=== PATIENT | male | born 1950 | race Caucasian/White ===

== ENCOUNTER 2024-08-12 15:23 | Outpatient (AMB) | payer MEDICARE, SELFPAY ==
--- NOTE | 2024-08-12 15:26 | A.OFFVIS_ITS ---
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 His is at bedside. He originally was admitted at [facility] from [address] [place] [address] due to an acute stroke. He had developed altered mental status and aphasia and was brought in by his . CT at that demonstrated acute left thalamic stroke with hemorrhagic extension. Subsequent CT angio of the carotids demonstrated a left-sided occlusion and high-grade right carotid stenosis. He was discharged to a rehab facility with some mild deficits of the right arm and blurry vision. He reports he is doing fairly well and now presents to us for vascular evaluation. Of note he is being maintained on aspirin and statin. [facility] Social History (Updated 08/12/24 @ 15:31 by CARMELO Hupmhrey) Patient Tobacco Use Status: Never used Tobacco Review of Systems Const All systems reviewed & are unremarkable except as noted in HPI and below Reports no additional complaints ENT Reports Normal hearing present Card Denies chest pain, Denies chest pain at rest, Denies chest pain with activity and Denies pedal edema Resp Denies cough GI Denies abdominal pain Musc Denies abnormal gait, Denies muscle cramps and Denies radiating pain into limb Skin/Breast Denies skin ulcer and Denies wounds Neuro Reports Normal hearing present and Denies abnormal gait Psych Reports no additional complaints Physical Exam Vital Signs: BMI result Body Mass Index 29.9 Const General: cooperative, healthy appearing and comfortable Orientation/consciousness: oriented to person, oriented to place and oriented to time HEENT Head: Yes normal to inspection Eyes Other: Double vision Neck Neck: Yes normal visual inspection Carotids: no bruits Chest Chest palpation & inspection: normal inspection of the chest Resp Effort & Inspection: normal respiratory effort and able to speak in complete sentences Auscultation: clear to auscultation bilaterally, no crackles, no rales, no rhonchi and no wheezes Cardio Rate: regular rate Rhythm: regular rhythm Heart sounds: S1 normal heart sound present and S2 normal heart sound present Bruits: no carotid bruits Peripheral pulses: Peripheral pulses 2+ throughout GI Inspection: Yes normal to inspection Skin Wounds: no wounds Hair: normal Neuro General: oriented to person, oriented to place and oriented to time Cranial nerves: Yes CN's II-XII intact bilaterally and Yes Normal hearing present Cognition (Neuro): normal cognition Motor exam (neuro): 5/5 motor strength present throughout Extrem Other: venous exam: No significant superficial varicosities or spider telangiectasias, minimal edema General: No clubbing, No cyanosis and No edema Psych Appearance: grossly normal Mental Status: mental status grossly normal Speech and movement: Normal speech and movement present Results Reviewed Results Reviewed: CT angio of the carotids demonstrates left-sided occlusion right side 75% stenosis. Assessment & Plan Assessment & Plan (1) Bilateral carotid artery stenosis: Code(s): I65.23 - Occlusion and stenosis of bilateral carotid arteries Category: Medical Plan: In short patient has a left carotid occlusion and high-grade right carotid stenosis. He will require right carotid endarterectomy. I have taken the liberty of ordering a repeat carotid ultrasound to get a baseline. In the interim as he recovers I have taken the liberty of also ordering cardiology evaluation for risk stratification. He will follow up with us after repeat ultrasound testing. Thank you for allowing us to assist in his care. If there are any questions or concerns please do not hesitate to contact us. Orders: Orders US carotid duplex BI 2 Weeks I65.23 - Occlusion and stenosis of bilateral carotid arteries Coding Level of Care Code New Pt Level 4 (03312) Complex EM visit Add On G2211 Diagnoses Bilateral carotid artery stenosis I65.23
[2024-08-12 15:27] VITALS: BMI 29.9
--- OUTSIDE RECORDS SUMMARY | 2024-08-12 18:36 | XMS_ITS | Clinical Summary ---
Author Organization [address] [facility] Address [address] [place] [address] Phone Care Team Providers Care Manager Of Financial Reporting Name Role Phone DollykieshaestefaniAkira byrd Primary Care Provider [phone] Encounters Date Type Department Care Team Description 08/05/2024 10:18 AM EDT - 08/05/2024 11:59 PM EDT Hospital Encounter [facility] CT Scan [address] [place] [phone] Epigastric discomfort Discharge Disposition: Home or Self Care 07/11/2024 Lab Requisition [facility] [address] [place] [phone] Jamarcus Bruno MD Encounter for other general examination 07/10/2024 Lab Requisition [facility] [address] [place] [phone] Jamarcus Bruno MD Encounter for other general examination 07/07/2024 Lab Requisition [facility] [address] [place] [phone] Jamarcus Bruno MD Encounter for other general examination 07/04/2024 Lab Requisition [facility] [address] [place] [phone] Jamarcus Bruno MD Encounter for other general examination 07/03/2024 Lab Requisition [facility] [address] [place] [phone] Jamarcus Bruno MD Encounter for other general examination 07/01/2024 Lab Requisition [facility] [address] [place] [phone] Jamarcus Bruno MD Encounter for other general examination 06/30/2024 Lab Requisition [facility] [address] [place] [phone] Jamarcus Bruno MD Encounter for other general examination from Last 3 Months Social History Tobacco Use Types Packs/Day Years Used Date Smoking Tobacco: Never Assessed Sex and Gender Information Value Date Recorded Sex Assigned at Not on file Legal Sex Male 11:27 PM EST Gender Identity Not on file Sexual Orientation Not on file Plan of Treatment Health Maintenance Due Date Last Done Comments Pneumococcal Vaccine: 50+ Years (1 of 1 - PCV) 2002 Zoster Vaccines (1 of 2) 2002 DTaP,Tdap,and Td Vaccines (2 - Td or Tdap) 02/15/2017 02/15/2007 Abdominal Aortic Aneurysm (AAA) Screen 01/22/2022 Colorectal Cancer Screening: Colonoscopy 01/22/2022 Depression Screening 01/22/2022 Falls Risk Assessment 01/22/2022 Hepatitis C Screening 01/22/2022 Medicare Annual Wellness Visit 01/22/2022 Social Influencers of Health Screening 01/22/2022 COVID-19 Vaccine ( season) 2023 02/13/2022, 12/30/2020, 05/24/2020, Additional history exists Hypertension/CHF/CAD Annual BMP Blood Test 08/01/2025 08/01/2024, 07/24/2024, 07/17/2024, Additional history exists RSV Immunization Adult Patients (1 - 1-dose 75+ series) 12/13/2027 Cholesterol Screening (Lipid Panel) 07/17/2029 07/17/2024, 02/06/2024 Influenza Vaccine Completed 10/25/2023, , 10/20/2021, Additional history exists HIB Vaccines Aged Out No longer eligi ble based on patient's age to complete this topic HPV Vaccines Aged Out No longer eligi ble based on patient's age to complete this topic Hepatitis A Vaccines Aged Out No long er eligible based on patient's age to complete this topic Hepatitis B Vaccines Aged Out No long er eligible based on patient's age to complete this topic IPV Vaccines Aged Out No longer eligi ble based on patient's age to complete this topic MMR Vaccines Aged Out No longer eligi ble based on patient's age to complete this topic Meningococcal ACWY Vaccine Aged Out N o longer eligible based on patient's age to complete this topic Meningococcal B Vaccine Aged Out No l onger eligible based on patient's age to complete this topic RSV Immunization Patients Under 20 months Aged Out No longer eligible based on patient's age to complete this topic Varicella Vaccines Aged Out No longer eligible based on patient's age to complete this topic Procedures Procedure Name Priority Date/Time Associated Diagnosis Comments CT ABDOMEN PELVIS W CONTRAST STAT 08/05/2024 10:40 AM EDT Epigastric discomfort BILIRUBIN DUPLICATE PROCEDURE TO ORDER Routine 08/01/2024 10:13 AM EDT Abdominal pain GERD (gastroesophageal reflux disease) CVA (cerebral vascular accident) (CMS/HCC V24, CMS/HCC V28) CBC WITH AUTO DIFFERENTIAL Routine 08/01/2024 10:13 AM EDT Abdominal pain GERD (gastroesophageal reflux disease) CVA (cerebral vascular accident) (CMS/HCC V24, CMS/HCC V28) AMYLASE Routine 08/01/2024 10:13 AM EDT Abdominal pain GERD (gastroesophageal reflux disease) CVA (cerebral vascular accident) (CMS/HCC V24, CMS/HCC V28) LIPASE Routine 08/01/2024 10:13 AM EDT Abdominal pain GERD (gastroesophageal reflux disease) CVA (cerebral vascular accident) (CMS/HCC V24, CMS/HCC V28) C-REACTIVE PROTEIN Routine 08/01/2024 10 :13 AM EDT Abdominal pain GERD (gastroesophageal reflux disease) CVA (cerebral vascular accident) (CMS/HCC V24, CMS/HCC V28) SEDIMENTATION RATE Routine 08/01/2024 10 :13 AM EDT Abdominal pain GERD (gastroesophageal reflux disease) CVA (cerebral vascular accident) (CMS/HCC V24, CMS/HCC V28) COMPREHENSIVE METABOLIC PANEL Routine 08/01/2024 10:13 AM EDT Abdominal pain GERD (gastroesophageal reflux disease) CVA (cerebral vascular accident) (CMS/HCC V24, CMS/HCC V28) CBC AND DIFFERENTIAL Routine 08/01/2024 10:13 AM EDT Abdominal pain GERD (gastroesophageal reflux disease) CVA (cerebral vascular accident) (CMS/HCC V24, CMS/HCC V28) BASIC METABOLIC PANEL Routine 07/24/2024 9:00 AM EDT Hyponatremia PROSTATE SPECIFIC ANTIGEN DIAGNOSTIC Routine 07/17/2024 9:32 AM EDT Essential hypertension, malignant Benign enlargement of 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) Intracerebral hemorrhage (CMS/HCC V24, CMS/HCC V28) Encounter for screening for malignant neoplasm of prostate Enlarged prostate COMPREHENSIVE METABOLIC PANEL Routine 07/17/2024 9:32 AM EDT Essential hypertension, malignant Benign enlargement of 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) Intracerebral hemorrhage (CMS/HCC V24, CMS/HCC V28) Encounter for screening for malignant neoplasm of prostate Enlarged prostate LIPID PANEL WITH REFLEX TO DIRECT LDL Routine 07/17/2024 9:32 AM EDT Essential hypertension, malignant Benign enlargement of 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) Intracerebral hemorrhage (CMS/HCC V24, CMS/HCC V28) Encounter for screening for malignant neoplasm of prostate Enlarged prostate BASIC METABOLIC PANEL Routine 07/11/2024 5:54 AM EDT Encounter for other general examination BASIC METABOLIC PANEL Routine 07/10/2024 5:02 AM EDT Encounter for other general examination BASIC METABOLIC PANEL Routine 07/07/2024 5:08 AM EDT Encounter for other general examination BASIC METABOLIC PANEL Routine 07/04/2024 5:53 AM EDT Encounter for other general examination MAGNESIUM Routine 07/03/2024 4:53 AM EDT Encounter for other general examination BASIC METABOLIC PANEL Routine 07/03/2024 4:53 AM EDT Encounter for other general examination BASIC METABOLIC PANEL Routine 07/01/2024 6:45 AM EDT Encounter for other general examination CBC WITH AUTO DIFFERENTIAL Routine 06/30/2024 5:37 AM EDT Encounter for other general examination MAGNESIUM Routine 06/30/2024 5:37 AM EDT Encounter for other general examination CBC AND DIFFERENTIAL Routine 06/30/2024 5:37 AM EDT Encounter for other general examination COMPREHENSIVE METABOLIC PANEL Routine 06/30/2024 5:37 AM EDT Encounter for other general examination from Last 3 Months Results * CT Abdomen Pelvis w Contrast (08/05/2024 10:40 AM EDT) Anatomical Region Laterality Modality Body Computed Tomogra phy 08/05/2024 10:4 1 AM EDT Impressions 08/05/2024 10:47 AM EDT Impression: 1. No acute abdominal process identified. Specifically, no findings of acute pancreatitis are seen. 2. Bilateral renal masses, most likely cysts, for which a follow-up renal ultrasound is recommended. Telerad JULES ([id number]) -------- FINAL REPORT -------- Dictated By: Ashley Palomares Dictated Date: 08/05/2024 10:41 ET Assigned Physician: Ashley Palomares Reviewed and Electronically Signed By: Ashley Palomares Signed Date: 08/05/2024 10:47 ET Workstation ID: [id number] Transcribed By: Self Edit Transcribed Date: 08/05/2024 10:41 ET Narrative 08/05/2024 10:47 AM EDT History: Abdominal pain with elevated serum amylase and lipase. Comparison: No comparison imaging at this institution. Technique: Helical volumetric imaging of the abdomen and pelvis was performed during the uneventful intravenous administration of 90 cc Isovue-370. DLP: 1150.40 mGy/cm [employer] VCT Iterative reconstruction technique Findings: The hepatic configuration is mildly abnormal, with relative prominence of the left and caudate lobes and widening of the intersegmental fissure, suggesting underlying chronic hepatocellular disease. A 4 mm hypoattenuating lesion in the dome of the left hepatic lobe is too small to accurately characterize, requiring no specific follow-up. The portal vein is patent. The gallbladder is physiologically distended. No evidence of biliary obstruction is seen. The spleen is normal in size and homogeneously attenuating. The pancreas is normal in size and configuration. No mass or duct dilatation is noted. The peripancreatic fat is preserved. No peripancreatic fluid collections are seen. The kidneys are normal in position and size, with symmetric, intact nephrograms and no evidence of hydronephrosis. Multiple circumscribed round homogeneously hypoattenuating bilateral renal masses are present, most likely cysts but indeterminate by CT number. The largest of these is 6 cm in diameter in the interpolar area of the right kidney. Atherosclerotic vascular calcification is present. There is no abdominal aortic aneurysm. No ascites is seen. Subcentimeter celiac axis lymph nodes are noted. There is no lymphadenopathy by size criteria. The prostate, seminal vesicles and urinary bladder are unremarkable. No evidence of bowel obstruction is seen. There are scattered colonic diverticula. The appendix is normal in caliber in the right lower quadrant. No abnormal perienteric or pericolonic fat stranding is seen. Lumbar disc degenerative changes and facet arthritis are noted. Procedure Note Ashley Palomares MD - 08/05/2024 History: Abdominal pain with elevated serum amylase and lipase. Comparison: No comparison imaging at this institution. Technique: Helical volumetric imaging of the abdomen and pelvis wasperformed during the uneventful intravenous administration of 90 ccIsovue-370. DLP: 1150.40 mGy/cm [employer] VCT Iterative reconstruction technique Findings: The hepatic configuration is mildly abnormal, with relative prominence ofthe left and caudate lobes and widening of the intersegmental fissure,suggesting underlying chronic hepatocellular disease. A 4 mmhypoattenuating lesion in the dome of the left hepatic lobe is too smallto accurately characterize, requiring no specific follow-up. The portalvein is patent. The gallbladder is physiologically distended. No evidenceof biliary obstruction is seen. The spleen is normal in size and homogeneously attenuating. The pancreasis normal in size and configuration. No mass or duct dilatation is noted.The peripancreatic fat is preserved. No peripancreatic fluid collectionsare seen. The kidneys are normal in position and size, with symmetric, intactnephrograms and no evidence of hydronephrosis. Multiple circumscribedround homogeneously hypoattenuating bilateral renal masses are present,most likely cysts but indeterminate by CT number. The largest of these is6 cm in diameter in the interpolar area of the right kidney. Atherosclerotic vascular calcification is present. There is no abdominalaortic aneurysm. No ascites is seen. Subcentimeter celiac axis lymph nodesare noted. There is no lymphadenopathy by size criteria. The prostate, seminal vesicles and urinary bladder are unremarkable. No evidence of bowel obstruction is seen. There are scattered colonicdiverticula. The appendix is normal in caliber in the right lowerquadrant. No abnormal perienteric or pericolonic fat stranding is seen. Lumbar disc degenerative changes and facet arthritis are noted. IMPRESSION: Impression: 1. No acute abdominal process identified. Specifically, no findings ofacute pancreatitis are seen. 2. Bilateral renal masses, most likely cysts, for which a follow-up renalultrasound is recommended. Telerad JULES ([id number]) -------- FINAL REPORT -------- Dictated By: Ashley Palomares Dictated Date: 08/05/2024 10:41 ET Assigned Physician: Ashley Palomares Reviewed and Electronically Signed By: Ashley Palomares Signed Date: 08/05/2024 10:47 ET Workstation ID: [id number] Transcribed By: Self Edit Transcribed Date: 08/05/2024 10:41 ET us Akira Mercadante DO IMG CT PROCEDURES Final Resul t * Bilirubin duplicate procedure to order (08/01/2024 10:13 AM EDT) Total Bilirubin 0.5 0.0 - 1.4 mg/dL LAB CHEMISTRY METHOD 08/01/2024 11:34 AM EDT [facility] Bilirubin, Direct 0.2 0.0 - 0.3 mg/dL LAB CHE[facility]STR[facility] Bilirubin, Indirect 0.3 0.0 - 1.1 mg/dL LAB CHEMISTRY METHOD 08/01/2024 11:34 AM EDT [facility] Blood Venous blood specimen / Unknown Venipuncture / Unknown 08/01/2024 10:13 AM EDT 08/01/2024 10:13 AM EDT us Coates Otto [employer] LAB BLOOD ORDERABLES Final Resul t [facility] [address] [place] [address], * (ABNORMAL) CBC auto differential (08/01/2024 10:13 AM EDT) Only the most recent of2 resultswithin the time period is included. [facility] WBC 6.0 4.8 - 10.8 K/mcL LAB HEMETOLOGY METHOD 08/01/2024 11:02 AM [facility] RBC 4.50 4.50 - 5.50 M/[facility] LAB HEMETOLOGY METHOD 08/01/2024 11:02 AM [facility] Hemoglobin 13.7 13.5 - 17.5 g/dL LAB HEMETOLOGY METHOD 08/01/2024 11:02 AM [facility] Hematocrit 41.0(L) 42.0 - 54.0 % LAB HEMETOLOGY METHOD 08/01/2024 11:02 AM [facility] MCV 91.1 79.0 - 98.0 FL LAB HEMETOLOGY METHOD 08/01/2024 11:02 AM [facility] MCH 30.4 27.0 - 32.0 pcg LAB HEMETOLOGY METHOD 08/01/2024 11:02 AM [facility] MCHC 33.4 32.0 - 37.0 g/dL LAB HEMETOLOGY METHOD 08/01/2024 11:02 AM [facility] RDW 12.5 11.0 - 15.0 % LAB HEMETOLOGY METHOD 08/01/2024 11:02 AM [facility] Platelets 185 130 - 400 K/mcL LAB HEMETOLOGY METHOD 08/01/2024 11:02 AM [facility] MPV 9.3 7.0 - 11.0 FL LAB HEMETOLOGY METHOD 08/01/2024 11:02 AM [facility] NRBC 0.0 <1.0 % LAB HEMETOLOGY METHOD 08/01/2024 11:02 AM [facility] NRBC Absolute 0.00 <0.10 K/mcL LAB HEMETOLOGY METHOD 08/01/2024 11:02 AM [facility] Neutrophils Relative 63.5 % LAB HEMETOLOGY METHOD 08/01/2024 11:02 AM [facility] Lymphocytes Relative 22.4 % LAB HEMETOLOGY METHOD 08/01/2024 11:02 AM [facility] Monocytes Relative 6.8 % LAB HEMETOLOGY METHOD 08/01/2024 11:02 AM [facility] Eosinophils Relative 6.2 % LAB HEMETOLOGY METHOD 08/01/2024 11:02 AM [facility] Basophils Relative 0.8 % LAB HEMETOLOGY METHOD 08/01/2024 11:02 AM [facility] Immature Granulocytes Relative 0.3 % LAB HEMETOLOGY METHOD 08/01/2024 11:02 AM [facility] Neutrophils Absolute 3.80 1.50 - 7.00 K/mcL LAB HEMETOLOGY METHOD 08/01/2024 11:02 AM EDT [facility] Lymphocytes Absolute 1.34 1.00 - 5.00 K/mcL LAB HEMETOLOGY METHOD 08/01/2024 11:02 AM EDT [facility] Monocytes Absolute 0.41 0.20 - 1.00 K/[facility] LAB HEMETOLOGY METHOD 08/01/2024 11:02 AM EDT [facility] Eosinophils Absolute 0.37 0.00 - 0.50 K/[facility] LAB HEMETOLOGY METHOD 08/01/2024 11:02 AM EDT [facility] Basophils Absolute 0.05 0.00 - 0.20 K/[facility] LAB HEMETOLOGY METHOD 08/01/2024 11:02 AM EDT [facility] Immature Granulocytes Absolute 0.02 0.00 - 0.03 K/[facility] LAB HEMETOLOGY METHOD 08/01/2024 11:02 AM EDT [facility] Blood Venous blood specimen / Unknown Venipuncture / Unknown 08/01/2024 10:13 AM EDT 08/01/2024 10:13 AM EDT us Coates Otto [employer] LAB BLOOD ORDERABLES Final Resul t [facility] [address] [place] [address], * (ABNORMAL) Sedimentation rate (08/01/2024 10:13 AM EDT) Sed Rate 21(H) 0 - 20 mm/hr LAB HEMETOLOGY METHOD 08/01/2024 11:09 AM EDT [facility] Blood Venous blood specimen / Unknown Venipuncture / Unknown 08/01/2024 10:13 AM EDT 08/01/2024 10:13 AM EDT [facility] [employer] LAB BLOOD ORDERABLES Final Resul t Performing Organization Address [facility]/ZIP Co de Phone Number [facility] [address] [place] [address], [place] [phone] * C-reactive protein (08/01/2024 10:13 AM EDT) C-Reactive Protein <0.29 <=0.50 mg/dL LAB CHEMISTRY METHOD 08/01/2024 11:31 AM EDT [facility] Blood Venous blood specimen / Unknown Venipuncture / Unknown 08/01/2024 10:13 AM EDT 08/01/2024 10:13 AM EDT [facility] [employer] LAB BLOOD ORDERABLES Final Resul t Performing Organization Address [facility] Co de Phone Number [facility] [address] [place] [address], * (ABNORMAL) Lipase (08/01/2024 10:13 AM EDT) Lipase 633(H) 13 - 75 unit/L LAB CHEMISTRY METHOD 08/01/2024 11:33 AM EDT [facility] Blood Venous blood specimen / Unknown Venipuncture / Unknown 08/01/2024 10:13 AM EDT 08/01/2024 10:13 AM EDT [facility] [employer] LAB BLOOD ORDERABLES Final Resul t Performing Organization Address City/[facility]/ZIP Co de Phone Number [facility] [address] [place] [address], [place] [phone] * (ABNORMAL) Amylase (08/01/2024 10:13 AM EDT) Amylase 168(H) 25 - 115 unit/L LAB CHEMISTRY METHOD 08/01/2024 11:31 AM EDT [facility] Blood Venous blood specimen / Unknown Venipuncture / Unknown 08/01/2024 10:13 AM EDT 08/01/2024 10:13 AM EDT us Coates Otto [employer] LAB BLOOD ORDERABLES Final Resul t [facility] [address] [place] [address], * Comprehensive metabolic panel (08/01/2024 10:13 AM EDT) Only the most recent of3 resultswithin the time period is included. Sodium 138 133 - 145 mmol/L LAB CHEMISTRY METHOD 08/01/2024 11:34 AM [facility] Potassium 3.9 3.5 - 5.5 mmol/L LAB CHEMISTRY METHOD 08/01/2024 11:34 AM [facility] Chloride 105 96 - 110 mmol/L LAB CHEMISTRY METHOD 08/01/2024 11:34 AM [facility] CO2 24 21 - 32 mmol/L LAB CHEMISTRY METHOD 08/01/2024 11:34 AM [facility] Anion Gap 9 3 - 11 LAB CHEMISTRY METHOD 08/01/2024 11:34 AM [facility] Glucose 95 70 - 100 mg/dL LAB CHEMISTRY METHOD 08/01/2024 11:34 AM [facility] BUN 11 5 - 25 mg/dL LAB CHEMISTRY METHOD 08/01/2024 11:34 AM [facility] Creatinine 0.77 0.70 - 1.30 mg/dL LAB CHEMISTRY METHOD 08/01/2024 11:34 AM [facility] eGFR 96 >=60 mL/min/1. 73m2 LAB CHEMISTRY METHOD 08/01/2024 11:34 AM [facility] Comment:Calculation based on the Chronic Kidney Disease Epidemiology Collaboration (CKD-EPI) equation refit without adjustment for race. BUN/Creatinine Ratio 14.3 LAB CHEMISTRY METHOD 08/01/2024 11:34 AM [facility] Calcium 8.6 8.5 - 10.5 mg/dL LAB CHEMISTRY METHOD 08/01/2024 11:34 AM [facility] AST (SGOT) 15 10 - 42 unit/L LAB CHEMISTRY METHOD 08/01/2024 11:34 AM [facility] ALT (SGPT) 31 10 - 60 unit/L LAB CHEMISTRY METHOD 08/01/2024 11:34 AM [facility] Alkaline Phosphatase 53 42 - 121 unit/L LAB CHEMISTRY METHOD 08/01/2024 11:34 AM [facility] Total Protein 7.1 6.0 - 8.0 g/dL LAB CHEMISTRY METHOD 08/01/2024 11:34 AM [facility] Albumin 3.8 3.2 - 5.0 g/dL LAB CHEMISTRY METHOD 08/01/2024 11:34 AM [facility] Total Bilirubin 0.5 0.0 - 1.4 mg/dL LAB CHEMISTRY METHOD 08/01/2024 11:34 AM [facility] Blood Venous blood specimen / Unknown Venipuncture / Unknown 08/01/2024 10:13 AM EDT 08/01/2024 10:13 AM EDT us Coates Otto [employer] LAB BLOOD ORDERABLES Final Resul t [facility] [address] [place] [address], * (ABNORMAL) Basic metabolic panel (07/24/2024 9:00 AM EDT) Only the most recent of7 resultswithin the time period is included. Sodium 140 133 - 145 mmol/L LAB CHEMISTRY METHOD 07/24/2024 11:55 AM [facility] Potassium 4.5 3.5 - 5.5 mmol/L LAB CHEMISTRY METHOD 07/24/2024 11:55 AM [facility] Chloride 107 96 - 110 mmol/L LAB CHEMISTRY METHOD 07/24/2024 11:55 AM [facility] CO2 25 21 - 32 mmol/L LAB CHEMISTRY METHOD 07/24/2024 11:55 AM [facility] Anion Gap 8 3 - 11 LAB CHEMISTRY METHOD 07/24/2024 11:55 AM [facility] Glucose 101(H) 70 - 100 mg/dL LAB CHEMISTRY METHOD 07/24/2024 11:55 AM [facility] BUN 12 5 - 25 mg/dL LAB CHEMISTRY METHOD 07/24/2024 11:55 AM [facility] Creatinine 0.71 0.70 - 1.30 mg/dL LAB CHEMISTRY METHOD 07/24/2024 11:55 AM [facility] eGFR 98 >=60 mL/min/1. 73m2 LAB CHEMISTRY METHOD 07/24/2024 11:55 AM [facility] Comment:Calculation based on the Chronic Kidney Disease Epidemiology Collaboration (CKD-EPI) equation refit without adjustment for race. BUN/Creatinine Ratio 16.9 LAB CHEMISTRY METHOD 07/24/2024 11:55 AM [facility] Calcium 8.8 8.5 - 10.5 mg/dL LAB CHEMISTRY METHOD 07/24/2024 11:55 AM [facility] Blood Venous blood specimen / Unknown Venipuncture / Unknown 07/24/2024 9:00 AM EDT 07/24/2024 9:00 AM EDT us Neva Martinez NP LAB BLOOD ORDERABLES Fi nal Result [facility] [address] [place] [address], [place] [phone] * (ABNORMAL) Lipid panel with reflex to direct LDL (07/17/2024 9:32 AM EDT) Cholesterol 165 0 - 200 mg/dL LAB CHEMISTRY METHOD 07/17/2024 12:09 PM EDT [facility] Triglycerides 266(H) 0 - 150 mg/dL LAB CHEMISTRY METHOD 07/17/2024 12:09 PM EDT [facility] HDL 49 >=40 mg/dL LAB CHEMISTRY METHOD 07/17/2024 12:09 PM EDT [facility] LDL Calculated 63 0 - 100 mg/dL LAB CHEMISTRY METHOD 07/17/2024 12:09 PM EDT [facility] VLDL Cholesterol Jordi 53.2 mg/dL LAB CHEMISTRY METHOD 07/17/2024 12:09 PM EDT [facility] Non HDL Chol. (LDL+VLDL) 116 <145 mg/dL LAB CHEMISTRY METHOD 07/17/2024 12:09 PM EDT [facility] Chol/HDL Ratio 3.4 0.0 - 4.4 LAB CHEMISTRY METHOD 07/17/2024 12:09 PM EDT [facility] Blood Venous blood specimen / Unknown Venipuncture / Unknown 07/17/2024 9:32 AM EDT 07/17/2024 9:32 AM EDT Neva Martinez [employer] LAB BLOOD ORDERABLES Fi nal Result [facility] [address] [place] [address], * Prostate specific antigen diagnostic (07/17/2024 9:32 AM EDT) PSA 1.08 0.00 - 4.00 ng/mL LAB CHEMISTRY METHOD 07/17/2024 12:59 PM EDT [facility] Blood Venous blood specimen / Unknown Venipuncture / Unknown 07/17/2024 9:32 AM EDT 07/17/2024 9:32 AM EDT Narrative [facility] - 07/17/2024 12:59 PM EDT The Siemens Advia Centaur Chemiluminescent Immunoassay is used. Results obtained with different assay methods or kits cannot be used interchangeably. Results cannot be interpreted as absolute evidence of the presence or absence of malignant disease. Neva Martinez NP LAB BLOOD ORDERABLES Fi nal Result Performing Organization Address [facility]/ZIP Co de Phone Number [facility] [address] [place] [address], [place] [phone] * Magnesium (07/03/2024 4:53 AM EDT) Only the most recent of2 resultswithin the time period is included. Magnesium 2.2 1.9 - 2.6 mg/dL LAB CHEMISTRY METHOD 07/03/2024 8:18 AM EDT [facility] Blood Venous blood specimen / Unknown Venipuncture / Unknown 07/03/2024 4:53 AM EDT 07/03/2024 7:48 AM EDT Jamarcus Bruno MD LAB BLOOD ORDERABLES Final Resu lt Performing Organization Address City/[facility]/ZIP Co de Phone Number [facility] [address] [place] [address], [place] [phone] from Last 3 Months Insurance [employer] Care Teams Manager Of Financial Reporting Relationship Specialty Start Date End Date Akira Castaneda DO [address] [place] [phone] PCP - General Internal Medicine 02/06/24
== END 2024-08-12 16:13 | disposition home or self-care (01) ==
LOC: HO.HVS 15:24
PROVIDERS: Visit Provider Surgery Vascular Surgery
DX: I65.23 Occlusion and stenosis of bilateral carotid arteries (principal)
CPT/HCPCS: 99204; G2211

== ENCOUNTER → 2024-08-12 15:23 | Outpatient (BNVA) | payer MEDICARE, SELFPAY | PROVIDERS: Visit Provider Surgery Vascular Surgery | DX: I65.23 Occlusion and stenosis of bilateral carotid arteries (principal) | CPT/HCPCS: 99202 ==

== ENCOUNTER 2024-08-13 10:30 | Outpatient (REF) | payer MEDICARE, SELFPAY ==
--- OUTSIDE RECORDS SUMMARY | 2024-08-13 12:23 | XMS_ITS | Clinical Summary ---
Author Organization [address] [facility] Address [address] [place] [address] Phone Care Team Providers Care Behavioral Assistant Name Role Phone DollykieshaestefaniAkira byrd Primary Care Provider [phone] Encounters Date Type Department Care Team Description 08/05/2024 10:18 AM EDT - 08/05/2024 11:59 PM EDT Hospital Encounter [facility] CT Scan [address] [place] [phone] Epigastric discomfort Discharge Disposition: Home or Self Care 07/11/[address] [facility] [address] [place] [phone] Jamarcus Bruno MD Encounter for other general examination 07/10/[address] [facility] [address] [place] [phone] Jamarcus Bruno MD Encounter for other general examination 07/07/[address] [facility] [address] [place] [phone] Jamarcus Bruno MD Encounter for other general examination 07/04/[address] [facility] [address] [place] [phone] Jamarcus Bruno MD Encounter for other general examination 07/03/[address] [facility] [address] [place] [phone] Jamarcus Bruno MD Encounter for other general examination 07/01/2024 Lab Requisition [facility] [address] [place] [phone] Jamarcus Bruno MD Encounter for other general examination 06/30/2024 Lab Requisition [facility] [address] [place] [phone] Jamarcus Bruno MD Encounter for other general [...] follow-up renal ultrasound is recommended. Telerad JULES ([id number]) -------- FINAL REPORT -------- Dictated By: Ashley Palomares Dictated Date: 08/05/2024 10:41 ET Assigned Physician: Ashley Palomares Reviewed and Electronically Signed By: Ashley Palomares Signed Date: 08/05/2024 10:47 ET Workstation ID: [id number] Transcribed By: Self Edit Transcribed Date: 08/05/2024 10:41 ET Narrative 08/05/2024 10:47 AM EDT History: Abdominal pain with elevated serum amylase and lipase. Comparison: No comparison imaging at this institution. Technique: Helical volumetric imaging of the abdomen and pelvis was performed during the uneventful intravenous administration of 90 cc Isovue-370. DLP: 1150.40 mGy/cm [employer] VCT Iterative reconstruction technique Findings: The hepatic [...] administration of 90 ccIsovue-370. DLP: 1150.40 mGy/cm [employer] VCT Iterative reconstruction technique Findings: The hepatic [...] a follow-up renalultrasound is recommended. Telerad JULES ([id number]) -------- FINAL REPORT -------- Dictated By: Ashley Palomares Dictated Date: 08/05/2024 10:41 ET Assigned Physician: Ashley Palomares Reviewed and Electronically Signed By: Ashley Palomares Signed Date: 08/05/2024 10:47 ET Workstation ID: [id number] Transcribed By: Self Edit Transcribed Date: 08/05/2024 10:41 ET us Akira Mercadante DO IMG CT PROCEDURES Final Resul t * Bilirubin duplicate procedure to order (08/01/2024 10:13 AM EDT) Total Bilirubin 0.5 0.0 - 1.4 mg/dL LAB CHEMISTRY METHOD 08/01/2024 11:34 AM EDT [facility] Bilirubin, Direct 0.2 0.0 - 0.3 mg/dL LAB CHEMISTRY METHOD [facility] Bilirubin, Indirect 0.3 0.0 - 1.1 mg/dL LAB CHEMISTRY METHOD 08/01/2024 11:34 AM EDT [facility] Blood Venous blood specimen / Unknown Venipuncture / Unknown 08/01/2024 10:13 AM EDT 08/01/2024 10:13 AM EDT us [facility] [employer] LAB BLOOD ORDERABLES Final Resul t [facility] [address] [place] [address], * (ABNORMAL) CBC auto differential (08/01/2024 10:13 AM EDT) Only the most recent of2 resultswithin the time period is included. [facility] WBC 6.0 4.8 - 10.8 K/mcL LAB HEMETOLOGY METHOD 08/01/2024 11:02 AM [facility] RBC 4.50 4.50 - 5.50 M/[facility] LAB HEMETOLOGY METHOD 08/01/2024 11:02 AM [facility] Hemoglobin 13.7 13.5 - 17.5 g/dL LAB HEMETOLOGY METHOD 08/01/2024 11:02 AM [facility] Hematocrit 41.0(L) 42.0 - 54.0 % LAB HEMETOLOGY METHOD 08/01/2024 11:02 AM [facility] MCV 91.1 79.0 - 98.0 FL LAB HEMETOLOGY METHOD 08/01/2024 11:02 AM [facility] MCH 30.4 27.0 - 32.0 pcg LAB HEMETOLOGY METHOD 08/01/2024 11:02 AM [facility] MCHC 33.4 32.0 - 37.0 g/dL LAB HEMETOLOGY METHOD 08/01/2024 11:02 AM [facility] RDW 12.5 11.0 - 15.0 % LAB HEMETOLOGY METHOD 08/01/2024 11:02 AM [facility] Platelets 185 130 - 400 K/mcL LAB HEMETOLOGY METHOD 08/01/2024 11:02 AM [facility] MPV 9.3 7.0 - 11.0 FL LAB HEMETOLOGY METHOD 08/01/2024 11:02 AM [facility] NRBC 0.0 <1.0 % LAB HEMETOLOGY METHOD 08/01/2024 11:02 AM [facility] NRBC Absolute 0.00 <0.10 K/mcL LAB HEMETOLOGY METHOD 08/01/2024 11:02 AM [facility] Neutrophils Relative 63.5 % LAB HEMETOLOGY METHOD 08/01/2024 11:02 AM [facility] Lymphocytes Relative 22.4 % LAB HEMETOLOGY METHOD 08/01/2024 11:02 AM [facility] Monocytes Relative 6.8 % LAB HEMETOLOGY METHOD 08/01/2024 11:02 AM [facility] Eosinophils Relative 6.2 % LAB HEMETOLOGY METHOD 08/01/2024 11:02 AM [facility] Basophils Relative 0.8 % LAB HEMETOLOGY METHOD 08/01/2024 11:02 AM [facility] Immature Granulocytes Relative 0.3 % LAB HEMETOLOGY METHOD 08/01/2024 11:02 AM [facility] Neutrophils Absolute 3.80 1.50 - 7.00 K/mcL LAB HEMETOLOGY METHOD 08/01/2024 11:02 AM EDT [facility] Lymphocytes Absolute 1.34 1.00 - 5.00 K/mcL LAB HEMETOLOGY METHOD 08/01/2024 11:02 AM EDT [facility] Monocytes Absolute 0.41 0.20 - 1.00 K/[facility] LAB HEMETOLOGY METHOD 08/01/2024 11:02 AM EDT [facility] Eosinophils Absolute 0.37 0.00 - 0.50 K/[facility] LAB HEMETOLOGY METHOD 08/01/2024 11:02 AM EDT [facility] Basophils Absolute 0.05 0.00 - 0.20 K/[facility] LAB HEMETOLOGY METHOD 08/01/2024 11:02 AM EDT [facility] Immature Granulocytes Absolute 0.02 0.00 - 0.03 K/[facility] LAB HEMETOLOGY METHOD 08/01/2024 11:02 AM EDT [facility] Blood Venous blood specimen / Unknown Venipuncture / Unknown 08/01/2024 10:13 AM EDT 08/01/2024 10:13 AM EDT us [facility] [employer] LAB BLOOD ORDERABLES Final Resul t [facility] [address] [place] [address], * (ABNORMAL) Sedimentation rate (08/01/2024 10:13 AM EDT) Sed Rate 21(H) 0 - 20 mm/hr LAB HEMETOLOGY METHOD 08/01/2024 11:09 AM EDT [facility] Blood Venous blood specimen / Unknown Venipuncture / Unknown 08/01/2024 10:13 AM EDT 08/01/2024 10:13 AM EDT [facility] [employer] LAB BLOOD ORDERABLES Final Resul t Performing Organization Address [facility]/ZIP Co de Phone Number [facility] [address] [place] [address], [place] [phone] * C-reactive protein (08/01/2024 10:13 AM EDT) C-Reactive Protein <0.29 <=0.50 mg/dL LAB CHEMISTRY METHOD 08/01/2024 11:31 AM EDT [facility] Blood Venous blood specimen / Unknown Venipuncture / Unknown 08/01/2024 10:13 AM EDT 08/01/2024 10:13 AM EDT [facility] [employer] LAB BLOOD ORDERABLES Final Resul t Performing Organization Address [facility] Co de Phone Number [facility] [address] [place] [address], * (ABNORMAL) Lipase (08/01/2024 10:13 AM EDT) Lipase 633(H) 13 - 75 unit/L LAB CHEMISTRY METHOD 08/01/2024 11:33 AM EDT [facility] Blood Venous blood specimen / Unknown Venipuncture / Unknown 08/01/2024 10:13 AM EDT 08/01/2024 10:13 AM EDT [facility] [employer] LAB BLOOD ORDERABLES Final Resul t Performing Organization Address City/[facility]/ZIP Co de Phone Number [facility] [address] [place] [address], [place] [phone] * (ABNORMAL) Amylase (08/01/2024 10:13 AM EDT) Amylase 168(H) 25 - 115 unit/L LAB CHEMISTRY METHOD 08/01/2024 11:31 AM EDT [facility] Blood Venous blood specimen / Unknown Venipuncture / Unknown 08/01/2024 10:13 AM EDT 08/01/2024 10:13 AM EDT us [facility] [employer] LAB BLOOD ORDERABLES Final Resul t [facility] [address] [place] [address], * Comprehensive metabolic panel (08/01/2024 10:13 AM EDT) Only the most recent of3 resultswithin the time period is included. Sodium 138 133 - 145 mmol/L LAB CHEMISTRY METHOD 08/01/2024 11:34 AM [facility] Potassium 3.9 3.5 - 5.5 mmol/L LAB CHEMISTRY METHOD 08/01/2024 11:34 AM [facility] Chloride 105 96 - 110 mmol/L LAB CHEMISTRY METHOD 08/01/2024 11:34 AM [facility] CO2 24 21 - 32 mmol/L LAB CHEMISTRY METHOD 08/01/2024 11:34 AM [facility] Anion Gap 9 3 - 11 LAB CHEMISTRY METHOD 08/01/2024 11:34 AM [facility] Glucose 95 70 - 100 mg/dL LAB CHEMISTRY METHOD 08/01/2024 11:34 AM [facility] BUN 11 5 - 25 mg/dL LAB CHEMISTRY METHOD 08/01/2024 11:34 AM [facility] Creatinine 0.77 0.70 - 1.30 mg/dL LAB CHEMISTRY METHOD 08/01/2024 11:34 AM [facility] eGFR 96 >=60 mL/min/1. 73m2 LAB CHEMISTRY METHOD 08/01/2024 11:34 AM [facility] Comment:Calculation based on the Chronic Kidney Disease Epidemiology Collaboration (CKD-EPI) equation refit without adjustment for race. BUN/Creatinine Ratio 14.3 LAB CHEMISTRY METHOD 08/01/2024 11:34 AM [facility] Calcium 8.6 8.5 - 10.5 mg/dL LAB CHEMISTRY METHOD 08/01/2024 11:34 AM [facility] AST (SGOT) 15 10 - 42 unit/L LAB CHEMISTRY METHOD 08/01/2024 11:34 AM [facility] ALT (SGPT) 31 10 - 60 unit/L LAB CHEMISTRY METHOD 08/01/2024 11:34 AM [facility] Alkaline Phosphatase 53 42 - 121 unit/L LAB CHEMISTRY METHOD 08/01/2024 11:34 AM [facility] Total Protein 7.1 6.0 - 8.0 g/dL LAB CHEMISTRY METHOD 08/01/2024 11:34 AM [facility] Albumin 3.8 3.2 - 5.0 g/dL LAB CHEMISTRY METHOD 08/01/2024 11:34 AM [facility] Total Bilirubin 0.5 0.0 - 1.4 mg/dL LAB CHEMISTRY METHOD 08/01/2024 11:34 AM [facility] Blood Venous blood specimen / Unknown Venipuncture / Unknown 08/01/2024 10:13 AM EDT 08/01/2024 10:13 AM EDT us [facility] [employer] LAB BLOOD ORDERABLES Final Resul t [facility] [address] [place] [address], * (ABNORMAL) Basic metabolic panel (07/24/2024 9:00 AM EDT) Only the most recent of7 resultswithin the time period is included. Sodium 140 133 - 145 mmol/L LAB CHEMISTRY METHOD 07/24/2024 11:55 AM [facility] Potassium 4.5 3.5 - 5.5 mmol/L LAB CHEMISTRY METHOD 07/24/2024 11:55 AM [facility] Chloride 107 96 - 110 mmol/L LAB CHEMISTRY METHOD 07/24/2024 11:55 AM [facility] CO2 25 21 - 32 mmol/L LAB CHEMISTRY METHOD 07/24/2024 11:55 AM [facility] Anion Gap 8 3 - 11 LAB CHEMISTRY METHOD 07/24/2024 11:55 AM [facility] Glucose 101(H) 70 - 100 mg/dL LAB CHEMISTRY METHOD 07/24/2024 11:55 AM [facility] BUN 12 5 - 25 mg/dL LAB CHEMISTRY METHOD 07/24/2024 11:55 AM [facility] Creatinine 0.71 0.70 - 1.30 mg/dL LAB CHEMISTRY METHOD 07/24/2024 11:55 AM [facility] eGFR 98 >=60 mL/min/1. 73m2 LAB CHEMISTRY METHOD 07/24/2024 11:55 AM [facility] Comment:Calculation based on the Chronic Kidney Disease Epidemiology Collaboration (CKD-EPI) equation refit without adjustment for race. BUN/Creatinine Ratio 16.9 LAB CHEMISTRY METHOD 07/24/2024 11:55 AM [facility] Calcium 8.8 8.5 - 10.5 mg/dL LAB CHEMISTRY METHOD 07/24/2024 11:55 AM [facility] Blood Venous blood specimen / Unknown Venipuncture / Unknown 07/24/2024 9:00 AM EDT 07/24/2024 9:00 AM EDT us Neva Martinez NP LAB BLOOD ORDERABLES Fi nal Result [facility] [address] [place] [address], [place] [phone] * (ABNORMAL) Lipid panel with reflex to [...] EDT 07/17/2024 9:32 AM EDT Neva Martinez [employer] LAB BLOOD ORDERABLES Fi nal Result [facility] [address] [place] [address], * Prostate specific antigen diagnostic (07/17/2024 9:32 [...] ORDERABLES Fi nal Result Performing Organization Address [facility]/ZIP Co de Phone Number [facility] [address] [place] [address], [place] [phone] * Magnesium (07/03/2024 4:53 AM EDT) Only the most recent of2 resultswithin the time period is included. Magnesium 2.2 1.9 - 2.6 mg/dL LAB CHEMISTRY METHOD 07/03/2024 8:18 AM EDT [facility] Blood Venous blood specimen / Unknown Venipuncture / Unknown 07/03/2024 4:53 AM EDT 07/03/2024 7:48 AM EDT Jamarcus Bruno MD LAB BLOOD ORDERABLES Final Resu lt Performing Organization Address City/[facility]/ZIP Co de Phone Number [facility] [address] [place] [address], [place] [phone] from Last 3 Months Insurance [employer] Care Teams Behavioral Assistant Relationship Specialty Start Date End Date Akira Castaneda DO [address] [place] [phone] PCP - General Internal Medicine 02/06/24
== END 2024-08-13 10:31 | disposition home or self-care (01) ==
LOC: CF 10:30
DX: Z13.89 Encounter for screening for other disorder (principal)

== ENCOUNTER 2024-08-19 14:38 | Outpatient (AMB) | payer MEDICARE, SELFPAY ==
--- NOTE | 2024-08-19 14:40 | A.OFFVIS_ITS ---
Vital Signs 08/19/24 14:42 Height 5 ft 7 in Weight 205 lb 0.478 oz BMI 32.1 BP 122/60 Blood Pressure Location Lt brachial Position Sitting Pulse 81 Pulse Source Monitor Intake Visit Reasons: [employer]/ preop/ Emelyn/ [facility] Environmental Consultant Required: No Accompanied by: Self / Same As Patient Allergies No Known Allergies Allergy (Verified 08/12/24 15:28) Medication List - Last Reconciled 08/19/24 by Esdras Johnson MD allopurinol 100 mg PO DAILY amlodipine 10 mg PO DAILY aspirin (Adult Aspirin Regimen) 81 mg PO DAILY famotidine 40 mg PO DAILY fluticasone propionate 50 mcg/actuation 2 sprays intranasal BID hydralazine 25 mg PO BID lisinopril 40 mg PO DAILY rosuvastatin 20 mg PO DAILY HPI Comments Details: Hari is here for cardiology consultation regarding preoperative stratification for carotid surgery. Recent [facility] documentation reviewed. Patient will comorbidities including hypertension, dyslipidemia presented to [facility] with ataxia and altered mental status. CTA had shown acute left thalamic hematoma and there was also concern for subarachnoid hemorrhage. There was occlusion of distal left carotid artery which was thought to be chronic and there was also severe stenosis in the right cervical internal carotid. Diagnosis also includes hypertensive emergency. Since that discharge, he has got some gait issues and some visual issues but nothing cardiac. Previously, denies any coronary disease or myocardial infarction or cardiomyopathy or anything else. Currently, denying any exertional chest pain or in fact any other cardiac symptoms. With regard to family history, brother apparently had a fatal myocardial infarction in his 50s. [facility] Medical History (Updated 08/19/24 @ 15:41 by Esdras Johnson MD) Intracranial hemorrhage Hyperlipidemia, unspecified Essential hypertension Family History (Updated 08/19/24 @ 15:13 by Esdras Johnson MD) Father Stroke Brother Heart attack Social History Patient Tobacco Use Status: Never used Tobacco Review of Systems Const Denies chills, Denies fatigue, Denies fever(s), Denies frequent falls, Denies weakness, Denies weight gain and Denies weight loss ENT Denies dizziness Card Denies chest pain, Denies leg edema, Denies lightheadedness, Denies palpitations, Denies dyspnea, Denies dyspnea on exertion and Denies orthopnea Resp Denies cough, Denies dyspnea and Denies dyspnea on exertion GI Denies bloating and Denies change in bowel habits Musc Denies muscle weakness, Denies numbness and Denies tingling Neuro Denies dizziness, Denies frequent falls, Denies numbness, Denies tingling and Denies weakness Endo Denies fatigue and Denies palpitations Physical Exam Vital Signs: Last Vital Signs Pulse 81 08/19/24 14:42 BP 122/60 08/19/24 14:42 BMI result Body Mass Index 32.1 Const General: comfortable and no acute distress Orientation/consciousness: patient oriented x3 HEENT Other: Unremarkable Head: Yes normal to inspection Neck Neck: Yes normal visual inspection Chest Chest palpation & inspection: normal inspection of the chest Resp Auscultation: clear to auscultation bilaterally Cardio Palpation: normal PMI Heart sounds: S1 normal heart sound present, S2 normal heart sound present, no gallops, no murmurs and no rubs GI Palpation (GI): Soft to palpation Back/Spine/Pelvis Other: unremarkable Skin General skin exam: no rashes or lesions noted Neuro General: patient oriented x3 Extrem General: Yes normal to inspection Psych Mental Status: mental status grossly normal Office Procedures EKG Details: EKG with underlying sinus rhythm at 81/Min; leftward axis; no ischemic changes; [place] [id number], Complete Assessment & Plan Assessment & Plan (1) Preoperative cardiovascular examination: Code(s): Z01.810 - Encounter for preprocedural cardiovascular examination Category: Medical Plan: Request ischemic workup because of strong vascular history. Obtain echocardiogram/coronary CTA. (2) Bilateral carotid artery stenosis: Code(s): I65.23 - Occlusion and stenosis of bilateral carotid arteries Category: Medical Plan: Plan for carotid endarterectomy noted. Await cardiac workup. (3) Essential hypertension: Code(s): I10 - Essential (primary) hypertension Category: Medical Plan: Currently on amlodipine, lisinopril, hydralazine. Home blood pressure diary reviewed and within acceptable range. (4) Hyperlipidemia, unspecified: Code(s): E78.5 - Hyperlipidemia, unspecified Category: Medical Plan: On statins. LDL at [facility] 49 mg/dL. Triglycerides elevated at 236 mg mg/dL. We will need to be rechecked in the future. (5) Intracranial hemorrhage: Code(s): I62.9 - Nontraumatic intracranial hemorrhage, unspecified Category: Medical Plan: Seems mostly recovered but still has vision issues as well as some gait issues. Plan Discussion Notes I discussed with the patient the need for further evaluation of carotid artery stenosis and the importance of assessing cardiac health prior to any surgical intervention. We reviewed the patient's current medication regimen and emphasized the importance of adherence to manage hypertension and hyperlipidemia. Follow-up appointments with specialists were confirmed to address ongoing visual disturbances and post-stroke recovery. Patient was informed and verbally consented to the use of an ambient scribe for clinic note documentation during this visit. Discussed with significant other. Orders: Orders CA echo transthoracic complete Today I25.10 - Atherosclerotic heart disease of [place] coronary artery without angina pectoris, Z01.810 - Encounter for preprocedural cardiovascular examination CT Cardiac Coronary Angio Today I25.10 - Atherosclerotic heart disease of [place] coronary artery without angina pectoris, Z01.810 - Encounter for preprocedural cardiovascular examination Basic Metabolic Panel Today I65.23 - Occlusion and stenosis of bilateral carotid arteries, Z01.810 - Encounter for preprocedural cardiovascular examination Patient Instructions: - Continue taking your blood pressure medications. - Monitor blood pressure regularly and report any significant changes. - Attend appointments for echocardiogram and cardiac CT scan. Coding Level of Care Code New Pt Level 4 (26295) Complex EM visit Add On G2211 Diagnoses Preoperative cardiovascular examination Z01.810 Bilateral carotid artery stenosis I65.23 Essential hypertension I10 Hyperlipidemia, unspecified E78.5 Intracranial hemorrhage I62.9 CPT Codes EKG - CPT: 57203-[id number], Complete ([id number])
[2024-08-19 14:42] VITALS: BP 122/60; PULSE 81; BMI 32.1
--- OUTSIDE RECORDS SUMMARY | 2024-08-19 15:43 | XMS_ITS | Clinical Summary ---
Author Organization [facility] Address [address] [place] [address] Phone Care Team Providers Care Battery Container Tester Name Role Phone DollykieshaestefaniAkira byrd Primary Care Provider [phone] Encounters Date Type Department Care Team Description 08/05/2024 10:18 AM EDT - 08/05/2024 11:59 PM EDT Hospital Encounter [facility] CT Scan [address] [place] [phone] Epigastric discomfort Discharge Disposition: Home or Self Care 07/11/2024 Lab Requisition [facility] [address] [place] [phone] Jamarcus Bruno MD Encounter for other general examination 07/10/2024 Lab Requisition [facility] [address] [place] [phone] Jamarcus Bruno MD Encounter for other general examination 07/07/2024 Lab Requisition [facility] [address] [place] [phone] Jamarcus Bruno MD Encounter for other general examination 07/04/2024 Lab Requisition [facility] [address] [place] [phone] Jamarcus Bruno MD Encounter for other general examination 07/03/2024 Lab Requisition [facility] [address] [place] [phone] Jamarcus Bruno MD Encounter for other general examination 07/01/[address] [facility] [address] [place] [phone] Jamarcus Bruno MD Encounter for other general examination 06/30/[address] [facility] [address] [place] [phone] Jamarcus Bruno MD Encounter for other general [...] 2023 02/13/2022, 12/30/2020, 05/24/2020, Additional history exists Influenza Vaccine (#1) 2024 , 11/21/2022, 10/20/2021, Additional history exists Hypertension/CHF/CAD Annual BMP Blood Test 08/01/2025 08/01/2024, 07/24/2024, 07/17/2024, Additional history exists RSV Immunization Adult Patients (1 - 1-dose 75+ series) 12/13/2027 Cholesterol Screening (Lipid Panel) 07/17/2029 07/17/2024, 02/06/2024 HIB Vaccines Aged Out No longer eligi [...] Procedure Name Priority Date/Time Associated Diagnosis Comments AMYLASE Routine 08/14/2024 8:23 AM EDT Elevated lipase Elevated amylase Abdominal pain LIPASE Routine 08/14/2024 8:23 AM EDT Elevated lipase Elevated amylase Abdominal pain CT ABDOMEN PELVIS W CONTRAST STAT 08/05/2024 [...] examination from Last 3 Months Results * Lipase (08/14/2024 8:23 AM EDT) Only the most recent of2 resultswithin the time period is included. Lipase 34 13 - 75 unit/L LAB CHEMISTRY METHOD 08/14/2024 11:07 AM EDT [facility] ALLENFERNANDE[facility] DILCIA ([facility]) [facility] Blood Venous blood specimen / Unknown Venipuncture / Unknown 08/14/2024 8:23 AM EDT 08/14/2024 8:23 AM EDT us Coates Otto NUCLEAR MEDICINE SPECIALIST LAB BLOOD ORDERABLES Final Resul t [facility] [address] [place] [address], [place] [phone] * Amylase (08/14/2024 8:23 AM EDT) Only the most recent of2 resultswithin the time period is included. Amylase 84 25 - 115 unit/L LAB CHEMISTRY METHOD 08/14/2024 11:[address] [facility] Blood Venous blood specimen / Unknown Venipuncture / Unknown 08/14/2024 8:23 AM EDT 08/14/2024 8:23 AM EDT us Coates Otto NUCLEAR MEDICINE SPECIALIST LAB BLOOD ORDERABLES Final Resul t [facility] [address] [place] [address], [place] [phone] * CT Abdomen Pelvis w Contrast (08/05/2024 10:40 AM EDT) Anatomical Region Laterality Modality Body Computed Tomogra phy 08/05/2024 10:4 1 AM EDT Impressions 08/05/2024 10:47 AM EDT Impression: 1. No acute abdominal process identified. Specifically, no findings of acute pancreatitis are seen. 2. Bilateral renal masses, most likely cysts, for which a follow-up renal ultrasound is recommended. Telerad PA ([id number]) -------- FINAL REPORT -------- Dictated By: Ashley Palomares Dictated Date: 08/05/2024 10:41 ET Assigned Physician: Ashley Palomares Reviewed and Electronically Signed By: Ashley Palomares Signed Date: 08/05/2024 10:47 ET Workstation ID: [id number] Transcribed By: Self Edit Transcribed Date: 08/05/2024 10:41 ET Narrative 08/05/2024 10:47 AM EDT History: Abdominal pain with elevated serum amylase and lipase. Comparison: No comparison imaging at this institution. Technique: Helical volumetric imaging of the abdomen and pelvis was performed during the uneventful intravenous administration of 90 cc Isovue-370. DLP: 1150.40 mGy/cm GE Dhaani Systemspeed VCT Iterative reconstruction technique Findings: The hepatic [...] administration of 90 ccIsovue-370. DLP: 1150.40 mGy/cm GE Dhaani SystemspeMolecular Detection VCT Iterative reconstruction technique Findings: The hepatic [...] a follow-up renalultrasound is recommended. Telerad JULES ([id number]) -------- FINAL REPORT -------- Dictated By: Ashley Palomares Dictated Date: 08/05/2024 10:41 ET Assigned Physician: Ashley Palomares Reviewed and Electronically Signed By: Ashley Palomares Signed Date: 08/05/2024 10:47 ET Workstation ID: [id number] Transcribed By: Self Edit Transcribed Date: 08/05/2024 10:41 ET us Akira Castaneda DO [facility] PROCEDURES Final Resul t * Bilirubin duplicate procedure to order (08/01/2024 10:13 AM EDT) Total Bilirubin 0.5 0.0 - 1.4 mg/dL LAB CHEMISTRY METHOD 08/01/2024 11:[address] [facility] Bilirubin, Direct 0.2 0.0 - 0.3 mg/dL LAB CHEMISTRY METHOD 08/01/2024 11:34 AM [facility] Bilirubin, Indirect 0.3 0.0 - 1.1 mg/dL LAB CHEMISTRY METHOD 08/01/2024 11:34 AM [facility] Blood Venous blood specimen / Unknown Venipuncture / Unknown 08/01/2024 10:13 AM EDT 08/01/2024 10:13 AM EDT us Coates Otto NUCLEAR MEDICINE SPECIALIST LAB BLOOD ORDERABLES Final Resul t [facility] [address] [place] [address], * (ABNORMAL) CBC auto differential (08/01/2024 10:13 AM EDT) Only the most recent of2 resultswithin the time period is included. WBC 6.0 4.8 - 10.8 K/mcL LAB HEMETOLOGY METHOD 08/01/2024 11:02 AM [facility] RBC 4.50 4.50 - 5.50 M/mcL LAB HEMETOLOGY METHOD 08/01/2024 11:02 AM [facility] Hemoglobin 13.7 13.5 - 17.5 g/dL LAB HEMETOLOGY METHOD 08/01/2024 11:02 AM [facility] Hematocrit 41.0(L) 42.0 - 54.0 % LAB HEMETOLOGY METHOD 08/01/2024 11:02 AM [facility] MCV 91.1 79.0 - 98.0 FL LAB HEMETOLOGY METHOD 08/01/2024 11:02 AM [facility] MCH 30.4 27.0 - 32.0 pcg LAB HEMETOLOGY METHOD 08/01/2024 11:02 AM [facility] MCHC 33.4 32.0 - 37.0 g/dL LAB HEMETOLOGY METHOD 08/01/2024 11:02 AM [facility] RDW 12.5 11.0 - 15.0 % LAB HEMETOLOGY METHOD 08/01/2024 11:02 AM [facility] Platelets 185 130 - 400 K/mcL LAB HEMETOLOGY METHOD 08/01/2024 11:02 AM [facility] MPV 9.3 7.0 - 11.0 FL LAB HEMETOLOGY METHOD 08/01/2024 11:02 AM [facility] NRBC 0.0 <1.0 % LAB HEMETOLOGY METHOD 08/01/2024 11:02 AM [facility] NRBC Absolute 0.00 <0.10 K/mcL LAB HEMETOLOGY METHOD 08/01/2024 11:02 AM [facility] Neutrophils Relative 63.5 % LAB HEMETOLOGY METHOD 08/01/2024 11:02 AM [facility] Lymphocytes Relative 22.4 % LAB HEMETOLOGY METHOD 08/01/2024 11:02 AM [facility] Monocytes Relative 6.8 % LAB HEMETOLOGY METHOD 08/01/2024 11:02 AM [facility] Eosinophils Relative 6.2 % LAB HEMETOLOGY METHOD 08/01/2024 11:02 AM [facility] Basophils Relative 0.8 % LAB HEMETOLOGY METHOD 08/01/2024 11:02 AM [facility] Immature Granulocytes Relative 0.3 % LAB HEMETOLOGY METHOD 08/01/2024 11:02 AM [facility] Neutrophils Absolute 3.80 1.50 - 7.00 K/mcL LAB HEMETOLOGY METHOD 08/01/2024 11:02 AM [facility] Lymphocytes Absolute 1.34 1.00 - 5.00 K/mcL LAB HEMETOLOGY METHOD 08/01/2024 11:[address] [facility] Monocytes Absolute 0.41 0.20 - 1.00 K/[facility] LAB HEMETOLOGY METHOD 08/01/2024 11:[address] [facility] Eosinophils Absolute 0.37 0.00 - 0.50 K/[facility] LAB HEMETOLOGY METHOD 08/01/2024 11:[address] [facility] Basophils Absolute 0.05 0.00 - 0.20 K/[facility] LAB HEMETOLOGY METHOD 08/01/2024 11:[address] [facility] Immature Granulocytes Absolute 0.02 0.00 - 0.03 K/[facility] LAB HEMETOLOGY METHOD 08/01/2024 11:[address] [facility] Blood Venous blood specimen / Unknown Venipuncture / Unknown 08/01/2024 10:13 AM EDT 08/01/2024 10:13 AM EDT us Coates Otto NUCLEAR MEDICINE SPECIALIST LAB BLOOD ORDERABLES Final Resul t Performing Organization Address [facility]/ZIP Co de Phone Number [facility] [address] [place] [address], [place] [phone] * (ABNORMAL) Sedimentation rate (08/01/2024 10:13 AM EDT) Sed Rate 21(H) 0 - 20 mm/hr LAB HEMETOLOGY METHOD 08/01/2024 11:[address] [facility] Blood Venous blood specimen / Unknown Venipuncture / Unknown 08/01/2024 10:13 AM EDT 08/01/2024 10:13 AM EDT us Coates Otto NUCLEAR MEDICINE SPECIALIST LAB BLOOD ORDERABLES Final Resul t Performing Organization Address City/[facility]/ZIP Co de Phone Number [facility] [address] [place] [address], [place] [phone] * C-reactive protein (08/01/2024 10:13 AM EDT) [facility] C-Reactive Protein <0.29 <=0.50 mg/dL LAB CHEMISTRY METHOD [facility]24 [facility] Blood Venous blood specimen / Unknown Venipuncture / Unknown 08/01/2024 10:13 AM EDT 08/01/2024 10:13 AM EDT us Coates Otto NUCLEAR MEDICINE SPECIALIST LAB BLOOD ORDERABLES Final Resul t [facility] [address] [place] [address], [place] [phone] * Comprehensive metabolic panel (08/01/2024 10:13 AM EDT) Only the most recent of3 resultswithin the time period is included. [facility] Sodium 138 133 - 145 mmol/L LAB CHEMISTRY METHOD 08/01/2024 11:34 AM [facility] Potassium 3.9 3.5 - 5.5 mmol/L LAB CHEMISTRY METHOD 08/01/2024 11:34 AM [facility] Chloride 105 96 - 110 mmol/L LAB CHEMISTRY METHOD 08/01/2024 11:34 AM [facility] CO2 24 21 - 32 mmol/L LAB CHEMISTRY METHOD 08/01/2024 11:34 AM [facility] Anion Gap 9 3 - 11 LAB CHEMISTRY METHOD 08/01/2024 11:34 AM [facility] Glucose 95 70 - 100 mg/dL LAB CHEMISTRY METHOD 08/01/2024 11:34 AM [facility] BUN 11 5 - 25 mg/dL LAB CHEMISTRY METHOD 08/01/2024 11:34 AM [facility] Creatinine 0.77 0.70 - 1.30 mg/dL LAB CHEMISTRY METHOD 08/01/2024 11:34 AM [facility] eGFR 96 >=60 mL/min/1. 73m2 LAB CHEMISTRY METHOD 08/01/2024 11:34 AM [facility] Comment:Calculation based on the Chronic Kidney Disease Epidemiology Collaboration (CKD-EPI) equation refit without adjustment for race. BUN/Creatinine Ratio 14.3 LAB CHEMISTRY METHOD 08/01/2024 11:34 AM [facility] Calcium 8.6 8.5 - 10.5 mg/dL LAB CHEMISTRY METHOD 08/01/2024 11:34 AM [facility] AST (SGOT) 15 10 - 42 unit/L LAB CHEMISTRY METHOD 08/01/2024 11:34 AM [facility] ALT (SGPT) 31 10 - 60 unit/L LAB CHEMISTRY METHOD 08/01/2024 11:34 AM [facility] Alkaline Phosphatase 53 42 - 121 unit/L LAB CHEMISTRY METHOD 08/01/2024 11:34 AM [facility] Total Protein 7.1 6.0 - 8.0 g/dL LAB CHEMISTRY METHOD 08/01/2024 11:34 AM [facility] Albumin 3.8 3.2 - 5.0 g/dL LAB CHEMISTRY METHOD 08/01/2024 11:34 AM [facility] Total Bilirubin 0.5 0.0 - 1.4 mg/dL LAB CHEMISTRY METHOD 08/01/2024 11:34 AM [facility] Blood Venous blood specimen / Unknown Venipuncture / Unknown 08/01/2024 10:13 AM EDT 08/01/2024 10:13 AM EDT us Coates Otto NUCLEAR MEDICINE SPECIALIST LAB BLOOD ORDERABLES Final Resul t [facility] [address] [place] [address], [place] [phone] * (ABNORMAL) Basic metabolic panel (07/24/2024 9:00 AM EDT) Only the most recent of7 resultswithin the time period is included. Sodium 140 133 - 145 mmol/L LAB CHEMISTRY METHOD 07/24/2024 11:55 AM [facility] Potassium 4.5 3.5 - 5.5 mmol/L LAB CHEMISTRY METHOD 07/24/2024 11:55 AM [facility] Chloride 107 96 - 110 mmol/L LAB CHEMISTRY METHOD 07/24/2024 11:55 AM [facility] CO2 25 21 - 32 mmol/L LAB CHEMISTRY METHOD 07/24/2024 11:55 AM [facility] Anion Gap 8 3 - 11 LAB CHEMISTRY METHOD 07/24/2024 11:55 AM [facility] Glucose 101(H) 70 - 100 mg/dL LAB CHEMISTRY METHOD 07/24/2024 11:55 AM [facility] BUN 12 5 - 25 mg/dL LAB CHEMISTRY METHOD 07/24/2024 11:55 AM [facility] Creatinine 0.71 0.70 - 1.30 mg/dL LAB CHEMISTRY METHOD 07/24/2024 11:55 AM [facility] eGFR 98 >=60 mL/min/1. 73m2 LAB CHEMISTRY METHOD 07/24/2024 11:55 AM [facility] Comment:Calculation based on the Chronic Kidney Disease Epidemiology Collaboration (CKD-EPI) equation refit without adjustment for race. BUN/Creatinine Ratio 16.9 LAB CHEMISTRY METHOD 07/24/2024 11:55 AM [facility] Calcium 8.8 8.5 - 10.5 mg/dL LAB CHEMISTRY METHOD 07/24/2024 11:55 AM [facility] Blood Venous blood specimen / Unknown Venipuncture / Unknown 07/24/2024 9:00 AM EDT 07/24/2024 9:00 AM EDT Neva Martinez NP LAB BLOOD ORDERABLES Fi nal Result [facility] [address] [place] [address], [place] [phone] * (ABNORMAL) Lipid panel with reflex to direct LDL (07/17/2024 9:32 AM EDT) [facility] Signature Cholesterol 165 0 - 200 mg/dL LAB CHEMISTRY METHOD 07/17/2024 12:[address] [facility] Triglycerides 266(H) 0 - 150 mg/dL LAB CHEMISTRY METHOD 07/17/2024 12:[address] [facility] HDL 49 >=40 mg/dL LAB CHEMISTRY METHOD 07/17/2024 12:[address] [facility] LDL Calculated 63 0 - 100 mg/dL LAB CHEMISTRY METHOD 07/17/2024 12:[address] [facility] VLDL Cholesterol Jordi 53.2 mg/dL LAB CHEMISTRY METHOD 07/17/2024 12:[address] [facility] Non HDL Chol. (LDL+VLDL) 116 <145 mg/dL LAB CHEMISTRY METHOD 07/17/2024 12:[address] [facility] Chol/HDL Ratio 3.4 0.0 - 4.4 LAB CHEMISTRY METHOD 07/17/2024 12:[address] [facility] Blood Venous blood specimen / Unknown Venipuncture / Unknown 07/17/2024 9:32 AM EDT 07/17/2024 9:32 AM EDT Neva Martinez NUCLEAR MEDICINE SPECIALIST LAB BLOOD ORDERABLES Fi nal Result [facility] [address] [place] [address], [place] [phone] * Prostate specific antigen diagnostic (07/17/2024 9:32 AM EDT) PSA 1.08 0.00 - 4.00 ng/mL LAB CHEMISTRY METHOD 07/17/2024 12:[address] [facility] Blood Venous blood specimen / Unknown Venipuncture / Unknown 07/17/2024 9:32 AM EDT 07/17/2024 9:[address] [facility] - 07/17/2024 12:59 PM EDT The Siemens Advia C3 Jianaur Chemiluminescent Immunoassay is used. Results obtained with different assay methods or kits cannot be used interchangeably. Results cannot be interpreted as absolute evidence of the presence or absence of malignant disease. eNva Martinez NP LAB BLOOD ORDERABLES Fi nal Result Performing Organization Address [facility]/ZIP Co de Phone Number [facility] [address] [place] [address], * Magnesium (07/03/2024 4:53 AM EDT) Only the most recent of2 resultswithin the time period is included. Pathologist [facility] Magnesium 2.2 1.9 - 2.6 mg/dL LAB CHEMISTRY METHOD 07/03/2024 8:[address] [facility] Blood Venous blood specimen / Unknown Venipuncture / Unknown 07/03/2024 4:53 AM EDT 07/03/2024 7:48 AM EDT Jamarcus Bruno MD LAB BLOOD ORDERABLES Final Resu lt [facility] [address] [place] [address], from Last 3 Months Insurance [employer] Care Teams Battery Container Tester Relationship Specialty Start Date End Date Akira Castaneda DO [address] [place] [address] [phone] PCP - General Internal Medicine 02/06/24
== END 2024-08-19 15:23 | disposition home or self-care (01) ==
PROVIDERS: Family Provider Internal Medicine; Visit Provider Internal Medicine
DX: Z01.818 Encounter for other preprocedural examination (principal); I65.23 Occlusion and stenosis of bilateral carotid arteries; I10 Essential (primary) hypertension; E78.5 Hyperlipidemia, unspecified; I62.9 Nontraumatic intracranial hemorrhage, unspecified
CPT/HCPCS: 93010; 99204

== ENCOUNTER → 2024-08-19 14:38 | Outpatient (BNVA) | payer MEDICARE, SELFPAY | PROVIDERS: Visit Provider Internal Medicine | DX: Z01.810 Encounter for preprocedural cardiovascular examination (principal); I65.23 Occlusion and stenosis of bilateral carotid arteries; I10 Essential (primary) hypertension; I62.9 Nontraumatic intracranial hemorrhage, unspecified; E78.5 Hyperlipidemia, unspecified; I44.4 Left anterior fascicular block; R94.31 Abnormal electrocardiogram [ECG] [EKG] | CPT/HCPCS: 93005; 99202 ==

== ENCOUNTER 2024-09-08 14:06 | Outpatient (REF) | payer MEDICARE, SELFPAY ==
--- OUTSIDE RECORDS SUMMARY | 2024-09-08 14:58 | XMS_ITS | Clinical Summary ---
Author Organization [facility] Address [address] [place] [address] Phone Care Team Providers Care Hair Salon Manager Name Role Phone DollykieshaestefaniAkira byrd Primary Care Provider [phone] Encounters Date Type Department Care Team Description 08/05/2024 10:18 AM EDT - 08/05/2024 11:59 PM EDT Hospital Encounter [facility] CT Scan [address] [place] [phone] Epigastric discomfort Discharge Disposition: Home or Self Care 07/11/2024 Lab Requisition [facility] [address] [place] [phone] Jamarcus Bruno MD Encounter for other general examination 07/10/2024 Lab Requisition [facility] Lab [address] [place] [phone] Jamarcus Bruno MD Encounter for other general examination 07/07/2024 Lab Requisition [facility] [address] [place] [phone] Jamarcus Bruno MD Encounter for other general examination 07/04/2024 Lab Requisition [facility] [address] [place] [phone] Jamarcus Bruno MD Encounter for other general examination 07/03/2024 Lab Requisition [facility] [address] [place] [phone] Jamarcus Bruno MD Encounter for other general examination 07/01/2024 Lab Requisition [facility] [address] [place] [phone] Jamarcus Bruno MD Encounter for other general examination 06/30/2024 Lab Requisition [facility] [address] [place] [phone] Jamarcus Bruno MD Encounter for other general [...] Screen 01/22/2022 Colorectal Cancer Screening: Colonoscopy 01/22/2022 Falls Risk Assessment 01/22/2022 Hepatitis C Screening 01/22/2022 Medicare Annual Wellness Visit 01/22/2022 Social Influencers of Health Screening 01/22/2022 COVID-19 Vaccine ( season) 2023 02/13/2022, 12/30/2020, 05/24/2020, Additional history exists Depression Screening 02/20/2024 Influenza Vaccine (#1) 2024 , 11/21/2022, 10/20/2021, [...] LAB CHEMISTRY METHOD 08/14/2024 11:07 AM EDT [facility] Blood Venous blood specimen / Unknown Venipuncture / Unknown 08/14/2024 8:23 AM EDT 08/14/2024 8:23 AM EDT us Coates Otto OPTICAL ENGINEERING MANAGER LAB BLOOD ORDERABLES Final Resul t [facility] [address] [place] [address], [place] [phone] * Amylase (08/14/2024 8:23 AM EDT) Only the most recent of2 resultswithin the time period is included. Amylase 84 25 - 115 unit/L LAB CHEMISTRY METHOD 08/14/2024 11:07 AM EDT [facility] Blood Venous blood specimen / Unknown Venipuncture / Unknown 08/14/2024 8:23 AM EDT 08/14/2024 8:23 AM EDT us Coates Otto OPTICAL ENGINEERING MANAGER LAB BLOOD ORDERABLES Final Resul t [facility] [address] [place] [address], [place] [phone] * CT Abdomen Pelvis w Contrast (08/05/2024 10:40 AM EDT) Anatomical Region Laterality Modality Body Computed Tomogra phy 08/05/2024 10:4 1 AM EDT Impressions 08/05/2024 10:47 AM EDT Impression: 1. No acute abdominal process identified. Specifically, no findings of acute pancreatitis are seen. 2. Bilateral renal masses, most likely cysts, for which a follow-up renal ultrasound is recommended[place] ([id number]) -------- FINAL REPORT -------- Dictated By: Ashley Palomares Dictated Date: 08/05/2024 10:41 ET Assigned Physician: Ashley Palomares Reviewed and Electronically Signed By: Ashley Palomares Signed Date: 08/05/2024 10:47 ET Workstation ID: [id number] Transcribed By: Self Edit Transcribed Date: 08/05/2024 10:41 ET Narrative 08/05/2024 10:47 AM EDT History: Abdominal pain with elevated serum amylase and lipase. Comparison: No comparison imaging at this institution. Technique: Helical volumetric imaging of the abdomen and pelvis was performed during the uneventful intravenous administration of 90 cc Isovue-370. DLP: 1150.40 mGy/cm [employer] Two Bpeed VCT Iterative reconstruction technique Findings: The hepatic [...] of 90 ccIsovue-370. DLP: 1150.40 mGy/cm [employer] Bpe[employer] VCT Iterative reconstruction technique Findings: The hepatic [...] a follow-up renalultrasound is recommended. Telerad JULES ([id number]) -------- FINAL REPORT -------- Dictated By: Ashley Palomares Dictated Date: 08/05/2024 10:41 ET Assigned Physician: Ashley Palomares Reviewed and Electronically Signed By: Ashley Palomares Signed Date: 08/05/2024 10:47 ET Workstation ID: [id number] Transcribed By: Self Edit Transcribed Date: 08/05/2024 10:41 ET us Akira Castaneda DO [facility] CT PROCEDURES Final Resul t * Bilirubin duplicate procedure to order (08/01/2024 10:13 AM EDT) Total Bilirubin 0.5 0.0 - 1.4 mg/dL LAB CHEMISTRY METHOD 08/01/2024 11:34 AM EDT [facility] Bilirubin, Direct 0.2 0.0 - 0.3 mg/dL LAB CHEMISTRY METHOD 08/01/2024 11:34 AM [facility] Bilirubin, Indirect 0.3 0.0 - 1.1 mg/dL LAB CHEMISTRY METHOD 08/01/2024 11:34 AM [facility] Blood Venous blood specimen / Unknown Venipuncture / Unknown 08/01/2024 10:13 AM EDT 08/01/2024 10:13 AM EDT us Coates Otto OPTICAL ENGINEERING MANAGER LAB BLOOD ORDERABLES Final Resul t [facility] [address] [place] [address], * (ABNORMAL) CBC auto differential (08/01/2024 10:13 AM EDT) Only the most recent of2 resultswithin the time period is included. WBC 6.0 4.8 - 10.8 K/mcL LAB HEMETOLOGY METHOD 08/01/2024 11:02 AM [facility] RBC 4.50 4.50 - 5.50 M/mcL LAB HEMETOLOGY METHOD 08/01/2024 11:02 AM [facility] Hemoglobin 13.7 13.5 - 17.5 g/dL LAB HEMETOLOGY METHOD 08/01/2024 11:02 AM [facility] Hematocrit 41.0(L) 42.0 - 54.0 % LAB HEMETOLOGY METHOD 08/01/2024 11:02 AM [facility] MCV 91.1 79.0 - 98.0 FL LAB HEMETOLOGY METHOD 08/01/2024 11:02 AM [facility] MCH 30.4 27.0 - 32.0 pcg LAB HEMETOLOGY METHOD 08/01/2024 11:02 AM [facility] MCHC 33.4 32.0 - 37.0 g/dL LAB HEMETOLOGY METHOD 08/01/2024 11:02 AM [facility] RDW 12.5 11.0 - 15.0 % LAB HEMETOLOGY METHOD 08/01/2024 11:02 AM [facility] Platelets 185 130 - 400 K/mcL LAB HEMETOLOGY METHOD 08/01/2024 11:02 AM [facility] MPV 9.3 7.0 - 11.0 FL LAB HEMETOLOGY METHOD 08/01/2024 11:02 AM [facility] NRBC 0.0 <1.0 % LAB HEMETOLOGY METHOD 08/01/2024 11:02 AM [facility] NRBC Absolute 0.00 <0.10 K/mcL LAB HEMETOLOGY METHOD 08/01/2024 11:02 AM [facility] Neutrophils Relative 63.5 % LAB HEMETOLOGY METHOD 08/01/2024 11:02 AM [facility] Lymphocytes Relative 22.4 % LAB HEMETOLOGY METHOD 08/01/2024 11:02 AM [facility] Monocytes Relative 6.8 % LAB HEMETOLOGY METHOD 08/01/2024 11:02 AM [facility] Eosinophils Relative 6.2 % LAB HEMETOLOGY METHOD 08/01/2024 11:02 AM [facility] Basophils Relative 0.8 % LAB HEMETOLOGY METHOD 08/01/2024 11:02 AM [facility] Immature Granulocytes Relative 0.3 % LAB HEMETOLOGY METHOD 08/01/2024 11:02 AM [facility] Neutrophils Absolute 3.80 1.50 - 7.00 K/mcL LAB HEMETOLOGY METHOD 08/01/2024 11:02 AM [facility] Lymphocytes Absolute 1.34 1.00 - 5.00 K/mcL LAB HEMETOLOGY METHOD 08/01/2024 11:02 AM EDT [facility] Monocytes Absolute 0.41 0.20 - 1.00 K/[facility] LAB HEMETOLOGY METHOD 08/01/2024 11:02 AM EDT [facility] Eosinophils Absolute 0.37 0.00 - 0.50 K/[facility] LAB HEMETOLOGY METHOD 08/01/2024 11:02 AM EDT [facility] Basophils Absolute 0.05 0.00 - 0.20 K/[facility] LAB HEMETOLOGY METHOD 08/01/2024 11:02 AM EDT [facility] Immature Granulocytes Absolute 0.02 0.00 - 0.03 K/[facility] LAB HEMETOLOGY METHOD 08/01/2024 11:02 AM EDT [facility] Blood Venous blood specimen / Unknown Venipuncture / Unknown 08/01/2024 10:13 AM EDT 08/01/2024 10:13 AM EDT us Coates Otto OPTICAL ENGINEERING MANAGER LAB BLOOD ORDERABLES Final Resul t Performing Organization Address [facility]/ZIP Co de Phone Number [facility] [address] [place] [address], [place] [phone] * (ABNORMAL) Sedimentation rate (08/01/2024 10:13 AM EDT) Sed Rate 21(H) 0 - 20 mm/hr LAB HEMETOLOGY METHOD 08/01/2024 11:09 AM EDT [facility] Blood Venous blood specimen / Unknown Venipuncture / Unknown 08/01/2024 10:13 AM EDT 08/01/2024 10:13 AM EDT us Coates Otto OPTICAL ENGINEERING MANAGER LAB BLOOD ORDERABLES Final Resul t Performing Organization Address City/[facility]/ZIP Co de Phone Number [facility] [address] [place] [address], [place] [phone] * C-reactive protein (08/01/2024 10:13 AM EDT) [facility] C-Reactive Protein <0.29 <=0.50 mg/dL LAB CHEMISTRY METHOD 08/01/2024 11:[facility] Blood Venous blood specimen / Unknown Venipuncture / Unknown 08/01/2024 10:13 AM EDT 08/01/2024 10:13 AM EDT us Coates Otto OPTICAL ENGINEERING MANAGER LAB BLOOD ORDERABLES Final Resul t [facility] [address] [place] [address], [place] [phone] * Comprehensive metabolic panel (08/01/2024 10:13 AM EDT) Only the most recent of3 resultswithin the time period is included. [facility] Sodium 138 133 - 145 mmol/L LAB CHEMISTRY METHOD 08/01/2024 11:34 AM [facility] Potassium 3.9 3.5 - 5.5 mmol/L LAB CHEMISTRY METHOD 08/01/2024 11:34 AM [facility] Chloride 105 96 - 110 mmol/L LAB CHEMISTRY METHOD 08/01/2024 11:34 AM [facility] CO2 24 21 - 32 mmol/L LAB CHEMISTRY METHOD 08/01/2024 11:34 AM [facility] Anion Gap 9 3 - 11 LAB CHEMISTRY METHOD 08/01/2024 11:34 AM [facility] Glucose 95 70 - 100 mg/dL LAB CHEMISTRY METHOD 08/01/2024 11:34 AM [facility] BUN 11 5 - 25 mg/dL LAB CHEMISTRY METHOD 08/01/2024 11:34 AM [facility] Creatinine 0.77 0.70 - 1.30 mg/dL LAB CHEMISTRY METHOD 08/01/2024 11:34 AM [facility] eGFR 96 >=60 mL/min/1. 73m2 LAB CHEMISTRY METHOD 08/01/2024 11:34 AM [facility] Comment:Calculation based on the Chronic Kidney Disease Epidemiology Collaboration (CKD-EPI) equation refit without adjustment for race. BUN/Creatinine Ratio 14.3 LAB CHEMISTRY METHOD 08/01/2024 11:34 AM [facility] Calcium 8.6 8.5 - 10.5 mg/dL LAB CHEMISTRY METHOD 08/01/2024 11:34 AM [facility] AST (SGOT) 15 10 - 42 unit/L LAB CHEMISTRY METHOD 08/01/2024 11:34 AM [facility] ALT (SGPT) 31 10 - 60 unit/L LAB CHEMISTRY METHOD 08/01/2024 11:34 AM [facility] Alkaline Phosphatase 53 42 - 121 unit/L LAB CHEMISTRY METHOD 08/01/2024 11:34 AM [facility] Total Protein 7.1 6.0 - 8.0 g/dL LAB CHEMISTRY METHOD 08/01/2024 11:34 AM [facility] Albumin 3.8 3.2 - 5.0 g/dL LAB CHEMISTRY METHOD 08/01/2024 11:34 AM [facility] Total Bilirubin 0.5 0.0 - 1.4 mg/dL LAB CHEMISTRY METHOD 08/01/2024 11:34 AM [facility] Blood Venous blood specimen / Unknown Venipuncture / Unknown 08/01/2024 10:13 AM EDT 08/01/2024 10:13 AM EDT us Coates Otto OPTICAL ENGINEERING MANAGER LAB BLOOD ORDERABLES Final Resul t [facility] [address] [place] [address], [place] [phone] * (ABNORMAL) Basic metabolic panel (07/24/2024 9:00 AM EDT) Only the most recent of7 resultswithin the time period is included. Sodium 140 133 - 145 mmol/L LAB CHEMISTRY METHOD 07/24/2024 11:55 AM [facility] Potassium 4.5 3.5 - 5.5 mmol/L LAB CHEMISTRY METHOD 07/24/2024 11:55 AM [facility] Chloride 107 96 - 110 mmol/L LAB CHEMISTRY METHOD 07/24/2024 11:55 AM [facility] CO2 25 21 - 32 mmol/L LAB CHEMISTRY METHOD 07/24/2024 11:55 AM [facility] Anion Gap 8 3 - 11 LAB CHEMISTRY METHOD 07/24/2024 11:55 AM [facility] Glucose 101(H) 70 - 100 mg/dL LAB CHEMISTRY METHOD 07/24/2024 11:55 AM [facility] BUN 12 5 - 25 mg/dL LAB CHEMISTRY METHOD 07/24/2024 11:55 AM [facility] Creatinine 0.71 0.70 - 1.30 mg/dL LAB CHEMISTRY METHOD 07/24/2024 11:55 AM [facility] eGFR 98 >=60 mL/min/1. 73m2 LAB CHEMISTRY METHOD 07/24/2024 11:55 AM [facility] Comment:Calculation based on the Chronic Kidney Disease Epidemiology Collaboration (CKD-EPI) equation refit without adjustment for race. BUN/Creatinine Ratio 16.9 LAB CHEMISTRY METHOD 07/24/2024 11:55 AM [facility] Calcium 8.8 8.5 - 10.5 mg/dL LAB CHEMISTRY METHOD 07/24/2024 11:55 AM [facility] Blood Venous blood specimen / Unknown Venipuncture / Unknown 07/24/2024 9:00 AM EDT 07/24/2024 9:00 AM EDT Neva Martinez NP LAB BLOOD ORDERABLES Fi nal Result [facility] [address] [place] [address], [place] [phone] * (ABNORMAL) Lipid panel with reflex to direct LDL (07/17/2024 9:32 AM EDT) [facility] Signature Cholesterol 165 0 - 200 mg/dL LAB CHEMISTRY METHOD 07/17/2024 12:09 PM EDT [facility] Triglycerides 266(H) 0 - 150 mg/dL LAB CHEMISTRY METHOD 07/17/2024 12:09 PM EDT [facility] HDL 49 >=40 mg/dL LAB CHEMISTRY METHOD 07/17/2024 12:09 PM EDT [facility] LDL Calculated 63 0 - 100 mg/dL LAB CHEMISTRY METHOD 07/17/2024 12:09 PM EDT [facility] VLDL Cholesterol Jordi 53.2 mg/dL LAB CHEMISTRY METHOD 07/17/2024 12:09 PM EDT [facility] Non HDL Chol. (LDL+VLDL) 116 <145 mg/dL LAB CHEMISTRY METHOD 07/17/2024 12:09 PM EDT [facility] Chol/HDL Ratio 3.4 0.0 - 4.4 LAB CHEMISTRY METHOD 07/17/2024 12:09 PM EDT [facility] Blood Venous blood specimen / Unknown Venipuncture / Unknown 07/17/2024 9:32 AM EDT 07/17/2024 9:32 AM EDT Neva Martinez OPTICAL ENGINEERING MANAGER LAB BLOOD ORDERABLES Fi nal Result [facility] [address] [place] [address], [place] [phone] * Prostate specific antigen diagnostic (07/17/2024 9:32 AM EDT) PSA 1.08 0.00 - 4.00 ng/mL LAB CHEMISTRY METHOD 07/17/2024 12:59 PM EDT [facility] Blood Venous blood specimen / Unknown Venipuncture / Unknown 07/17/2024 9:32 AM EDT 07/17/2024 9:32 AM EDT Narrative [facility] - 07/17/2024 12:59 PM EDT The [employer] Chemiluminescent Immunoassay is used. Results obtained with different assay methods or kits cannot be used interchangeably. Results cannot be interpreted as absolute evidence of the presence or absence of malignant disease. Neva Martinez NP LAB BLOOD ORDERABLES Fi nal Result Performing Organization Address [facility]/ZIP Co de Phone Number [facility] [address] [place] [address], * Magnesium (07/03/2024 4:53 AM EDT) Only the most recent of2 resultswithin the time period is included. Pathologist [facility] Magnesium 2.2 1.9 - 2.6 mg/dL LAB CHEMISTRY METHOD 07/03/2024 8:18 AM EDT [facility] Blood Venous blood specimen / Unknown Venipuncture / Unknown 07/03/2024 4:53 AM EDT 07/03/2024 7:48 AM EDT Jamarcus Bruno MD LAB BLOOD ORDERABLES Final Resu lt [facility] [address] [place] [address], from Last 3 Months Insurance [employer] [place] [address] Care Teams Hair Salon Manager Relationship Specialty Start Date End Date Akira Castaneda DO [address] [place] [address] [phone] PCP - General Internal Medicine 02/06/24
[2024-09-08 15:33] LABS: Anion Gap 15 (12-20); Blood Urea Nitrogen 12 mg/dL (9-16); Calcium 9.0 mg/dL (8.4-10.2); Carbon Dioxide 23 mmol/L (22-29); Chloride 107 mmol/L (96-108); Estimated Glomerular Filt Rate > 60; Potassium 3.7 mmol/L (3.3-5.1); Sodium 141 mmol/L (135-145)
== END 2024-09-08 14:07 | disposition home or self-care (01) ==
LOC: HO.LAB 14:06
PROVIDERS: PCP Internal Medicine; Visit Provider Internal Medicine
DX: Z01.810 Encounter for preprocedural cardiovascular examination (principal); I65.23 Occlusion and stenosis of bilateral carotid arteries
CPT/HCPCS: 36415; 80048

== ENCOUNTER → 2024-09-26 13:24 | Outpatient (REF) | payer MEDICARE, SELFPAY ==
--- NOTE | ~2024-09-26 | US_ITS ---
CLINICAL HISTORY: I65.23 - Occlusion and stenosis of bilateral carotid arteries US Bilateral Carotid Duplex Comparison: None provided Findings: No significant plaque within the common carotid arteries. Moderate plaque within the carotid bulbs. Normal color doppler and waveforms morphology. Peak systolic velocities: Right CCA: 76 cm/s. Right ICA: 335 cm/s. ICA/CCA ratio: 4.4. Right ECA: Unremarkable. Right vertebral artery flow antegrade. Left CCA: 100 cm/s. Left ICA: 156 cm/s. ICA/CCA ratio: 1.5. Left ECA: Unremarkable. Left vertebral artery flow antegrade. IMPRESSION: Significant right ICA stenosis, 80-99% This document has been electronically signed by: Roger Young MD on 09/27/2024 09:02:23
--- OUTSIDE RECORDS SUMMARY | 2024-09-26 13:27 | XMS_ITS | Clinical Summary ---
Author Organization [address] [facility] Address [address] [place] [address] Phone Care Team Providers Care Concessions Manager Name Role Phone DollykieshaestefaniAkira byrd Primary Care Provider [phone] Encounters Date Type Department Care Team Description 08/05/2024 10:18 AM EDT - 08/05/2024 11:59 PM EDT Hospital Encounter [facility] CT Scan [address] [place] [phone] Epigastric discomfort Discharge Disposition: Home or Self Care 07/11/2024 Lab Requisition [facility] Lab [address] [place] [phone] Jamarcus Burno MD Encounter for other general examination 07/10/2024 Lab Requisition [facility] Lab [address] [place] [phone] Jamarcus Bruno MD Encounter for other general examination 07/07/2024 Lab Requisition [facility] Lab [address] [place] [phone] Jamarcus Bruno MD Encounter for other general examination 07/04/2024 Lab Requisition [facility] Lab [address] [place] [phone] Jamarcus Bruno MD Encounter for other general examination 07/03/2024 Lab Requisition [facility] Lab [address] [place] [phone] Jamarcus Bruno MD Encounter for other general examination 07/01/2024 Lab Requisition [facility] [place] [facility] Lab [address] [place] [phone] Jamarcus Bruno MD Encounter for other general examination 06/30/2024 Lab Requisition [facility] [place] [facility] Lab [address] [place] [phone] Jamarcus Bruno MD Encounter for other general [...] LAB CHEMISTRY METHOD 08/14/2024 11:07 AM EDT [facility] ([facility]) [facility] LAB Blood Venous blood specimen / Unknown Venipuncture / Unknown 08/14/2024 8:23 AM EDT 08/14/2024 8:23 AM EDT us Coates Otto COMPLIANCE TESTER LAB BLOOD ORDERABLES Final Resul t [facility] LAB [address] [place] [address], [place] [phone] * Amylase (08/14/2024 8:23 AM EDT) Only the most recent of2 resultswithin the time period is included. Amylase 84 25 - 115 unit/L LAB CHEMISTRY METHOD 08/14/2024 11:07 AM EDT [facility] LAB Blood Venous blood specimen / Unknown Venipuncture / Unknown 08/14/2024 8:23 AM EDT 08/14/2024 8:23 AM EDT us Coates Otto COMPLIANCE TESTER LAB BLOOD ORDERABLES Final Resul t [facility] [address] [place] [address], [place] [phone] * CT Abdomen Pelvis w Contrast (08/05/2024 10:40 AM EDT) Anatomical Region Laterality Modality Body Computed Tomogra phy 08/05/2024 10:4 1 AM EDT Impressions 08/05/2024 10:47 AM EDT Impression: 1. No acute abdominal process identified. Specifically, no findings of acute pancreatitis are seen. 2. Bilateral renal masses, most likely cysts, for which a follow-up renal ultrasound is recommended. Telerad PA ([id number]) -------- FINAL REPORT -------- Dictated By: Ashley Palomares Dictated Date: 08/05/2024 10:41 ET Assigned Physician: Ashley Palomares Reviewed and Electronically Signed By: Ashley Palomares Signed Date: 08/05/2024 10:47 ET Workstation ID: [id number] Transcribed By: Self Edit Transcribed Date: 08/05/2024 10:41 ET Narrative 08/05/2024 10:47 AM EDT History: Abdominal pain with elevated serum amylase and lipase. Comparison: No comparison imaging at this institution. Technique: Helical volumetric imaging of the abdomen and pelvis was performed during the uneventful intravenous administration of 90 cc Isovue-370. DLP: 1150.40 mGy/cm GE [employer] VCT Iterative reconstruction technique Findings: The hepatic [...] of 90 ccIsovue-370. DLP: 1150.40 mGy/cm GE [employer] VCT Iterative reconstruction technique Findings: The hepatic [...] a follow-up renalultrasound is recommended. Telerad JULES ([id number]) -------- FINAL REPORT -------- Dictated By: Ashley Palomares Dictated Date: 08/05/2024 10:41 ET Assigned Physician: Ashley Palomares Reviewed and Electronically Signed By: Ashley Palomares Signed Date: 08/05/2024 10:47 ET Workstation ID: [id number] Transcribed By: Self Edit Transcribed Date: 08/05/2024 10:41 ET us Akira Castaneda DO [facility] CT PROCEDURES Final Resul t * Bilirubin duplicate procedure to order (08/01/2024 10:13 AM EDT) Total Bilirubin 0.5 0.0 - 1.4 mg/dL LAB CHEMISTRY METHOD 08/01/2024 11:34 AM EDT [facility] Bilirubin, Direct 0.2 0.0 - 0.3 mg/dL LAB CHEMISTRY METHOD 08/01/2024 11:34 AM [facility] LAB Bilirubin, Indirect 0.3 0.0 - 1.1 mg/dL LAB CHEMISTRY METHOD 08/01/2024 11:34 AM [facility] LAB Blood Venous blood specimen / Unknown Venipuncture / Unknown 08/01/2024 10:13 AM EDT 08/01/2024 10:13 AM EDT us Coates Otto COMPLIANCE TESTER LAB BLOOD ORDERABLES Final Resul t [facility] [address] [place] [address], * (ABNORMAL) CBC auto differential (08/01/2024 10:13 AM EDT) Only the most recent of2 resultswithin the time period is included. WBC 6.0 4.8 - 10.8 K/mcL LAB HEMETOLOGY METHOD 08/01/2024 11:02 AM [facility] LAB RBC 4.50 4.50 - 5.50 M/mcL LAB HEMETOLOGY METHOD 08/01/2024 11:02 AM [facility] LAB Hemoglobin 13.7 13.5 - 17.5 g/dL LAB HEMETOLOGY METHOD 08/01/2024 11:02 AM [facility] LAB Hematocrit 41.0(L) 42.0 - 54.0 % LAB HEMETOLOGY METHOD 08/01/2024 11:02 AM [facility] LAB MCV 91.1 79.0 - 98.0 FL LAB HEMETOLOGY METHOD 08/01/2024 11:02 AM [facility] LAB MCH 30.4 27.0 - 32.0 pcg LAB HEMETOLOGY METHOD 08/01/2024 11:02 AM [facility] LAB MCHC 33.4 32.0 - 37.0 g/dL LAB HEMETOLOGY METHOD 08/01/2024 11:02 AM [facility] LAB RDW 12.5 11.0 - 15.0 % LAB HEMETOLOGY METHOD 08/01/2024 11:02 AM [facility] LAB Platelets 185 130 - 400 K/mcL LAB HEMETOLOGY METHOD 08/01/2024 11:02 AM [facility] LAB MPV 9.3 7.0 - 11.0 FL LAB HEMETOLOGY METHOD 08/01/2024 11:02 AM [facility] LAB NRBC 0.0 <1.0 % LAB HEMETOLOGY METHOD 08/01/2024 11:02 AM [facility] LAB NRBC Absolute 0.00 <0.10 K/mcL LAB HEMETOLOGY METHOD 08/01/2024 11:02 AM [facility] LAB Neutrophils Relative 63.5 % LAB HEMETOLOGY METHOD 08/01/2024 11:02 AM [facility] LAB Lymphocytes Relative 22.4 % LAB HEMETOLOGY METHOD 08/01/2024 11:02 AM [facility] LAB Monocytes Relative 6.8 % LAB HEMETOLOGY METHOD 08/01/2024 11:02 AM [facility] LAB Eosinophils Relative 6.2 % LAB HEMETOLOGY METHOD 08/01/2024 11:02 AM [facility] LAB Basophils Relative 0.8 % LAB HEMETOLOGY METHOD 08/01/2024 11:02 AM [facility] LAB Immature Granulocytes Relative 0.3 % LAB HEMETOLOGY METHOD 08/01/2024 11:02 AM [facility] LAB Neutrophils Absolute 3.80 1.50 - 7.00 K/mcL LAB HEMETOLOGY METHOD 08/01/2024 11:02 AM [facility] LAB Lymphocytes Absolute 1.34 1.00 - 5.00 K/mcL LAB HEMETOLOGY METHOD 08/01/2024 11:02 AM EDT [facility] Monocytes Absolute 0.41 0.20 - 1.00 K/[facility] LAB HEMETOLOGY METHOD 08/01/2024 11:02 AM EDT [facility] LAB Eosinophils Absolute 0.37 0.00 - 0.50 K/[facility] LAB HEMETOLOGY METHOD 08/01/2024 11:02 AM EDT [facility] LAB Basophils Absolute 0.05 0.00 - 0.20 K/[facility] LAB HEMETOLOGY METHOD 08/01/2024 11:02 AM EDT [facility] LAB Immature Granulocytes Absolute 0.02 0.00 - 0.03 K/[facility] LAB HEMETOLOGY METHOD 08/01/2024 11:02 AM EDT [facility] LAB Blood Venous blood specimen / Unknown Venipuncture / Unknown 08/01/2024 10:13 AM EDT 08/01/2024 10:13 AM EDT us Coates Otto COMPLIANCE TESTER LAB BLOOD ORDERABLES Final Resul t Performing Organization Address [facility]/ZIP Co de Phone Number [facility] [address] [place] [address], [place] [phone] * (ABNORMAL) Sedimentation rate (08/01/2024 10:13 AM EDT) Sed Rate 21(H) 0 - 20 mm/hr LAB HEMETOLOGY METHOD 08/01/2024 11:09 AM EDT [facility] Blood Venous blood specimen / Unknown Venipuncture / Unknown 08/01/2024 10:13 AM EDT 08/01/2024 10:13 AM EDT us Coates Otto COMPLIANCE TESTER LAB BLOOD ORDERABLES Final Resul t Performing Organization Address City/[facility]/ZIP Co de Phone Number [facility] [address] [place] [address], [place] [phone] * C-reactive protein (08/01/2024 10:13 AM EDT) [facility] C-Reactive Protein <0.29 <=0.50 mg/dL LAB CHEMISTRY METHOD 08/[facility]24 [facility] Blood Venous blood specimen / Unknown Venipuncture / Unknown 08/01/2024 10:13 AM EDT 08/01/2024 10:13 AM EDT us Coates Otto COMPLIANCE TESTER LAB BLOOD ORDERABLES Final Resul t [facility] [address] [place] [address], [place] [phone] * Comprehensive metabolic panel (08/01/2024 10:13 AM EDT) Only the most recent of3 resultswithin the time period is included. [facility] Sodium 138 133 - 145 mmol/L LAB CHEMISTRY METHOD 08/01/2024 11:34 AM [facility] LAB Potassium 3.9 3.5 - 5.5 mmol/L LAB CHEMISTRY METHOD 08/01/2024 11:34 AM [facility] LAB Chloride 105 96 - 110 mmol/L LAB CHEMISTRY METHOD 08/01/2024 11:34 AM [facility] LAB CO2 24 21 - 32 mmol/L LAB CHEMISTRY METHOD 08/01/2024 11:34 AM [facility] LAB Anion Gap 9 3 - 11 LAB CHEMISTRY METHOD 08/01/2024 11:34 AM [facility] LAB Glucose 95 70 - 100 mg/dL LAB CHEMISTRY METHOD 08/01/2024 11:34 AM [facility] LAB BUN 11 5 - 25 mg/dL LAB CHEMISTRY METHOD 08/01/2024 11:34 AM [facility] LAB Creatinine 0.77 0.70 - 1.30 mg/dL LAB CHEMISTRY METHOD 08/01/2024 11:34 AM [facility] LAB eGFR 96 >=60 mL/min/1. 73m2 LAB CHEMISTRY METHOD 08/01/2024 11:34 AM [facility] LAB Comment:Calculation based on the Chronic Kidney Disease Epidemiology Collaboration (CKD-EPI) equation refit without adjustment for race. BUN/Creatinine Ratio 14.3 LAB CHEMISTRY METHOD 08/01/2024 11:34 AM [facility] LAB Calcium 8.6 8.5 - 10.5 mg/dL LAB CHEMISTRY METHOD 08/01/2024 11:34 AM [facility] LAB AST (SGOT) 15 10 - 42 unit/L LAB CHEMISTRY METHOD 08/01/2024 11:34 AM [facility] LAB ALT (SGPT) 31 10 - 60 unit/L LAB CHEMISTRY METHOD 08/01/2024 11:34 AM [facility] LAB Alkaline Phosphatase 53 42 - 121 unit/L LAB CHEMISTRY METHOD 08/01/2024 11:34 AM [facility] LAB Total Protein 7.1 6.0 - 8.0 g/dL LAB CHEMISTRY METHOD 08/01/2024 11:34 AM [facility] LAB Albumin 3.8 3.2 - 5.0 g/dL LAB CHEMISTRY METHOD 08/01/2024 11:34 AM [facility] LAB Total Bilirubin 0.5 0.0 - 1.4 mg/dL LAB CHEMISTRY METHOD 08/01/2024 11:34 AM [facility] LAB Blood Venous blood specimen / Unknown Venipuncture / Unknown 08/01/2024 10:13 AM EDT 08/01/2024 10:13 AM EDT us Coates Otto COMPLIANCE TESTER LAB BLOOD ORDERABLES Final Resul t [facility] [address] [place] [address], [place] [phone] * (ABNORMAL) Basic metabolic panel (07/24/2024 9:00 AM EDT) Only the most recent of7 resultswithin the time period is included. Sodium 140 133 - 145 mmol/L LAB CHEMISTRY METHOD 07/24/2024 11:55 AM [facility] LAB Potassium 4.5 3.5 - 5.5 mmol/L LAB CHEMISTRY METHOD 07/24/2024 11:55 AM [facility] LAB Chloride 107 96 - 110 mmol/L LAB CHEMISTRY METHOD 07/24/2024 11:55 AM [facility] LAB CO2 25 21 - 32 mmol/L LAB CHEMISTRY METHOD 07/24/2024 11:55 AM [facility] LAB Anion Gap 8 3 - 11 LAB CHEMISTRY METHOD 07/24/2024 11:55 AM [facility] LAB Glucose 101(H) 70 - 100 mg/dL LAB CHEMISTRY METHOD 07/24/2024 11:55 AM [facility] LAB BUN 12 5 - 25 mg/dL LAB CHEMISTRY METHOD 07/24/2024 11:55 AM [facility] LAB Creatinine 0.71 0.70 - 1.30 mg/dL LAB CHEMISTRY METHOD 07/24/2024 11:55 AM [facility] LAB eGFR 98 >=60 mL/min/1. 73m2 LAB CHEMISTRY METHOD 07/24/2024 11:55 AM [facility] LAB Comment:Calculation based on the Chronic Kidney Disease Epidemiology Collaboration (CKD-EPI) equation refit without adjustment for race. BUN/Creatinine Ratio 16.9 LAB CHEMISTRY METHOD 07/24/2024 11:55 AM [facility] LAB Calcium 8.8 8.5 - 10.5 mg/dL LAB CHEMISTRY METHOD 07/24/2024 11:55 AM [facility] LAB Blood Venous blood specimen / Unknown Venipuncture / Unknown 07/24/2024 9:00 AM EDT 07/24/2024 9:00 AM EDT Neva Martinez NP LAB BLOOD ORDERABLES Fi nal Result [facility] [address] [place] [address], [place] [phone] * (ABNORMAL) Lipid panel with reflex to direct LDL (07/17/2024 9:32 AM EDT) [facility] Signature Cholesterol 165 0 - 200 mg/dL LAB CHEMISTRY METHOD 07/17/2024 12:09 PM EDT [facility] Triglycerides 266(H) 0 - 150 mg/dL LAB CHEMISTRY METHOD 07/17/2024 12:09 PM EDT [facility] HDL 49 >=40 mg/dL LAB CHEMISTRY METHOD 07/17/2024 12:09 PM EDT [facility] LDL Calculated 63 0 - 100 mg/dL LAB CHEMISTRY METHOD 07/17/2024 12:09 PM EDT [facility] VLDL Cholesterol Jordi 53.2 mg/dL LAB CHEMISTRY METHOD 07/17/2024 12:09 PM EDT [facility] Non HDL Chol. (LDL+VLDL) 116 <145 mg/dL LAB CHEMISTRY METHOD 07/17/2024 12:09 PM EDT [facility] Chol/HDL Ratio 3.4 0.0 - 4.4 LAB CHEMISTRY METHOD 07/17/2024 12:09 PM EDT [facility] Blood Venous blood specimen / Unknown Venipuncture / Unknown 07/17/2024 9:32 AM EDT 07/17/2024 9:32 AM EDT Neva Martinez COMPLIANCE TESTER LAB BLOOD ORDERABLES Fi nal Result [facility] [address] [place] [address], [place] [phone] * Prostate specific antigen diagnostic (07/17/2024 9:32 AM EDT) PSA 1.08 0.00 - 4.00 ng/mL LAB CHEMISTRY METHOD 07/17/2024 12:59 PM EDT [facility] Blood Venous blood specimen / Unknown Venipuncture / Unknown 07/17/2024 9:32 AM EDT 07/17/2024 9:32 AM EDT Narrative [facility] - 07/17/2024 12:59 PM EDT The Siemens Advia TrepUpaur Chemiluminescent Immunoassay is used. Results obtained with different assay methods or kits cannot be used interchangeably. Results cannot be interpreted as absolute evidence of the presence or absence of malignant disease. Neva Martinez NP LAB BLOOD ORDERABLES Fi nal Result Performing Organization Address [facility]/ZIP Co de Phone Number [facility] [address] [place] [address], * Magnesium (07/03/2024 4:53 AM EDT) Only the most recent of2 resultswithin the time period is included. Pathologist [facility] Magnesium 2.2 1.9 - 2.6 mg/dL LAB CHEMISTRY METHOD 07/03/2024 8:18 AM EDT [facility] Blood Venous blood specimen / Unknown Venipuncture / Unknown 07/03/2024 4:53 AM EDT 07/03/2024 7:48 AM EDT Jamarcus Bruno MD LAB BLOOD ORDERABLES Final Resu lt [facility] [address] [place] [address], from Last 3 Months Insurance [employer] MED[employer] Care Teams Concessions Manager Relationship Specialty Start Date End Date Akira Castaneda DO [address] [place] [phone] PCP - General Internal Medicine 02/06/24
--- NOTE | 2024-09-26 13:58 | CA_ITS ---
Transthoracic Echocardiogram Patient (Last, First, Middle): Hari Flores M Gender: Male Date of : 1950 Age: 73 Procedure Date: 09/26/2024 Procedure Type: Transthoracic Echocardiogram Location: OP Height: 170.18 cm Weight: 83.46 kg BSA: 1.95 m2 Heart Rate: 69 bpm BP: 140 / 68 mmHg Animal Health Technician: TO Referring MD: Esdras Johnson MD Symptoms: I25.10 - Atherosclerotic heart disease of [place] coronary artery without... Study Quality: Adequate ECG Rhythm: Sinus Conclusions: - The left ventricular systolic function is normal. The calculated ejection fraction is 67% by biplane method. - No obvious valvular pathology seen on this study. Findings Left Ventricle Normal left ventricular cavity size. The left ventricular systolic function is normal. The calculated ejection fraction is 67% by biplane method. There is no evidence of regional wall motion abnormalities. Diastolic function is normal for age. There is mild septal asymmetric hypertrophy. Right Ventricle Normal right ventricular cavity size and systolic function. Atria Both atria are normal in size. Aortic Valve There is a normal trileaflet aortic valve. There is no aortic valve stenosis. There is no aortic valve regurgitation. Mitral Valve The mitral valve appears normal. There is trace mitral valve regurgitation. There is no mitral valve stenosis. Pulmonic Valve The pulmonic valve is likely normal. Tricuspid Valve There is trace tricuspid valve regurgitation. There is no evidence of pulmonary hypertension. Great Vessels The asc aorta is normal in size. Venous The inferior vena cava is normal in size and collapses greater than 50% with inspiration. Pericardium/Pleural There is no evidence of pericardial effusion. Prior Study Comparison No prior study available for comparison. Recommendations, Care & Conclusions No obvious valvular pathology seen on this study. Measurements 2D Linear Measurements IVSd: 1.03 0.6-0.9/0.6-1.0 cm LVIDd: 3.56 3.9-5.3/4.2-5.9 cm LVIDd Index: 1.83 2.4-3.2/2.2-3.1 cm/m2 LVIDs: 2.40 2.0-3.6 cm LVPWd: 0.98 0.7-1.1 cm LA Diam: 3.40 2.7-3.8/3.0-4.0 cm LAIDs Index: 1.74 1.5-2.3 cm/m2 LV Mass: 132.51 67-162/88-224 g LV Mass Index: 67.95 43-95/49-115 g/m2 LVOT Diam: 2.40 3.0+(-)1.3 cm 2D Systolic Function EF 4C: 68.00 >55% EF 2C: 66.70 >55% EF BiP: 67.10 >55% Mitral Valve MV Pk E: 0.69 MV PK A: 0.41 MV Decel Time: 241.00 E/A: 1.70 E'Lateral: 6.74 E'Medial: 5.44 E/E' Med: 12.80 E/E' Lat: 10.30 PHT: 71.00 MVA PHT: 3.10 Decel Gooding: 2.87 Aortic Valve AoV Pk Matthew: 1.62 AoV Mn Matthew: 1.03 AoV VTI: 0.31 AoV Pk Grad: 10.00 Aov Mn Grad: 5.00 YON Cont.VTI: 3.36 LVOT LVOT Pk Matthew: 1.19 LVOT Mn Matthew: 0.82 LVOT VTI: 0.23 LVOT Pk Grad: 6.00 LVOT Mn Grad: 3.00 LVOT Diam: 2.40 LVOT Area: 4.52 Diastolic Function MV Pk E: 0.69 MV Pk A: 0.41 E/A: 1.70 E'Medial: 5.44 E/E' Med: 12.80 E' Laterial: 6.74 E/E' Lat: 10.30 Right Ventricle TAPSE (mm): 20.00 TVS' Matthew: 20.00 Tricuspid Valve TR Pk Matthew: 2.12 TR Pk Grad: 18.00 RA Press: 3.00 RVSP: 21.00 Great Vessels Aorta Sinus of Valsalva: 3.92 2.0-3.5 cm Ao Asc: 3.80 2.1-3.4 cm Ao Arch: 3.20 Updated in Other Vendor System with Status of Final Esdras Johnson MD electronically signed on 09/27/2024 1:07:54 PM with status of Final
== END ==
LOC: HO.CARD 13:24
PROVIDERS: Absent Provider Surgery Vascular Surgery; PCP Internal Medicine; Visit Provider Internal Medicine
DX: Z01.810 Encounter for preprocedural cardiovascular examination (principal); I65.23 Occlusion and stenosis of bilateral carotid arteries; I25.10 Atherosclerotic heart disease of native coronary artery without angina pectoris
CPT/HCPCS: 93306; 93880; Q9957

== ENCOUNTER → 2024-09-26 13:26 | Outpatient (BNV) | payer MEDICARE, SELFPAY | PROVIDERS: Absent Provider Surgery Vascular Surgery; PCP Internal Medicine; Visit Provider Specialist | DX: I65.21 Occlusion and stenosis of right carotid artery (principal) | CPT/HCPCS: 93880 ==

== ENCOUNTER → 2024-09-26 13:58 | Outpatient (BNV) | payer MEDICARE, SELFPAY | PROVIDERS: Absent Provider Surgery Vascular Surgery; PCP Internal Medicine; Visit Provider Internal Medicine | DX: I25.10 Atherosclerotic heart disease of native coronary artery without angina pectoris (principal) | CPT/HCPCS: 93306 ==

== ENCOUNTER 2024-09-30 09:25 | Outpatient (AMB) | payer MEDICARE, SELFPAY ==
--- OUTSIDE RECORDS SUMMARY | 2024-09-30 10:03 | XMS_ITS | Clinical Summary ---
Author Organization [facility] Address [address] [place] [address] Phone Care Team Providers Care Animal Technician Name Role Phone DollykieshaestefaniAkira byrd Primary Care Provider Encounters Date Type Department Care Team Description 08/05/2024 10:18 AM EDT - 08/05/2024 11:59 PM EDT Hospital Encounter [facility] CT Scan [address] [place] [phone] Epigastric discomfort Discharge Disposition: Home or Self Care 07/11/2024 Lab Requisition [facility] Lab [address] [place] [phone] Jamarcus Bruno MD Encounter for other general examination 07/10/2024 Lab Requisition [facility] Lab [address] [place] [phone] Jamarcus Bruno MD Encounter for other general examination 07/07/2024 Lab Requisition [facility] Lab [address] [place] [phone] Jamarcus Bruno MD Encounter for other general examination 07/04/2024 Lab Requisition [facility] Lab [address] [place] [phone] Jamarcus Bruno MD Encounter for other general examination 07/03/2024 Lab Requisition [facility] Lab [address] [place] [phone] Jamarcus Bruno MD Encounter for other general examination 07/01/2024 Lab Requisition [facility] [address] [place] [phone] Jamarcus Bruno MD Encounter for other general examination 06/30/2024 Lab Requisition [facility] Lab [address] [place] [phone] Jamarcus Bruno MD Encounter for other general [...] LAB CHEMISTRY METHOD 08/14/2024 11:07 AM EDT [facility] Blood Venous blood specimen / Unknown Venipuncture / Unknown 08/14/2024 8:23 AM EDT 08/14/2024 8:23 AM EDT us Coates Otto TIRE BUILDING SUPERVISOR LAB BLOOD ORDERABLES Final Resul t [facility] [address] [place] [address], [place] [phone] * Amylase (08/14/2024 8:23 AM EDT) Only the most recent of2 resultswithin the time period is included. Amylase 84 25 - 115 unit/L LAB CHEMISTRY METHOD 08/14/2024 11:07 AM EDT [facility] Blood Venous blood specimen / Unknown Venipuncture / Unknown 08/14/2024 8:23 AM EDT 08/14/2024 8:23 AM EDT us Coates Otto TIRE BUILDING SUPERVISOR LAB BLOOD ORDERABLES Final Resul t [facility] [address] [place] [address], [place] [phone] * CT Abdomen Pelvis w Contrast (08/05/2024 10:40 AM EDT) Anatomical Region Laterality Modality Body Computed Tomogra phy 08/05/2024 10:4 1 AM EDT Impressions 08/05/2024 10:47 AM EDT Impression: 1. No acute abdominal process identified. Specifically, no findings of acute pancreatitis are seen. 2. Bilateral renal masses, most likely cysts, for which a follow-up renal ultrasound is recommended. [place] ([id number]) -------- FINAL REPORT -------- Dictated By: Ashley Palomares Dictated Date: 08/05/2024 10:41 ET Assigned Physician: Ashley Palomares Reviewed and Electronically Signed By: Ashley Palomares Signed Date: 08/05/2024 10:47 ET Workstation ID: [id number] Transcribed By: Self Edit Transcribed Date: 08/05/2024 10:41 ET Narrative 08/05/2024 10:47 AM EDT History: Abdominal pain with elevated serum amylase and lipase. Comparison: No comparison imaging at this institution. Technique: Helical volumetric imaging of the abdomen and pelvis was performed during the uneventful intravenous administration of 90 cc Isovue-370. DLP: 1150.40 mGy/cm GE TPG Marinepeed VCT Iterative reconstruction technique Findings: The hepatic [...] of 90 ccIsovue-370. DLP: 1150.40 mGy/cm GE TPG MarinepeK Spine VCT Iterative reconstruction technique Findings: The hepatic [...] a follow-up renalultrasound is recommended. Telerad JULES ([id number]) -------- FINAL REPORT -------- Dictated By: Ashley Palomares Dictated Date: 08/05/2024 10:41 ET Assigned Physician: Ashley Palomares Reviewed and Electronically Signed By: Ashley Palomares Signed Date: 08/05/2024 10:47 ET Workstation ID: [id number] Transcribed By: Self Edit Transcribed Date: 08/05/2024 10:41 ET us Akira Castaneda DO [facility] [place] PROCEDURES Final Resul t * Bilirubin duplicate procedure to order (08/01/2024 10:13 AM EDT) Total Bilirubin 0.5 0.0 - 1.4 mg/dL LAB CHEMISTRY METHOD 08/01/2024 11:34 AM EDT [facility] Bilirubin, Direct 0.2 0.0 - 0.3 mg/dL LAB CHEMISTRY METHOD 08/01/2024 11:34 AM [facility] Bilirubin, Indirect 0.3 0.0 - 1.1 mg/dL LAB CHEMISTRY METHOD 08/01/2024 11:34 AM [facility] Blood Venous blood specimen / Unknown Venipuncture / Unknown 08/01/2024 10:13 AM EDT 08/01/2024 10:13 AM EDT us Coates Otto TIRE BUILDING SUPERVISOR LAB BLOOD ORDERABLES Final Resul t [facility] [address] [place] [address], * (ABNORMAL) CBC auto differential (08/01/2024 10:13 AM EDT) Only the most recent of2 resultswithin the time period is included. WBC 6.0 4.8 - 10.8 K/mcL LAB HEMETOLOGY METHOD 08/01/2024 11:02 AM [facility] RBC 4.50 4.50 - 5.50 M/mcL LAB HEMETOLOGY METHOD 08/01/2024 11:02 AM [facility] Hemoglobin 13.7 13.5 - 17.5 g/dL LAB HEMETOLOGY METHOD 08/01/2024 11:02 AM [facility] Hematocrit 41.0(L) 42.0 - 54.0 % LAB HEMETOLOGY METHOD 08/01/2024 11:02 AM [facility] MCV 91.1 79.0 - 98.0 FL LAB HEMETOLOGY METHOD 08/01/2024 11:02 AM [facility] MCH 30.4 27.0 - 32.0 pcg LAB HEMETOLOGY METHOD 08/01/2024 11:02 AM [facility] MCHC 33.4 32.0 - 37.0 g/dL LAB HEMETOLOGY METHOD 08/01/2024 11:02 AM [facility] RDW 12.5 11.0 - 15.0 % LAB HEMETOLOGY METHOD 08/01/2024 11:02 AM [facility] Platelets 185 130 - 400 K/mcL LAB HEMETOLOGY METHOD 08/01/2024 11:02 AM [facility] MPV 9.3 7.0 - 11.0 FL LAB HEMETOLOGY METHOD 08/01/2024 11:02 AM [facility] NRBC 0.0 <1.0 % LAB HEMETOLOGY METHOD 08/01/2024 11:02 AM [facility] NRBC Absolute 0.00 <0.10 K/mcL LAB HEMETOLOGY METHOD 08/01/2024 11:02 AM [facility] Neutrophils Relative 63.5 % LAB HEMETOLOGY METHOD 08/01/2024 11:02 AM [facility] Lymphocytes Relative 22.4 % LAB HEMETOLOGY METHOD 08/01/2024 11:02 AM [facility] Monocytes Relative 6.8 % LAB HEMETOLOGY METHOD 08/01/2024 11:02 AM [facility] Eosinophils Relative 6.2 % LAB HEMETOLOGY METHOD 08/01/2024 11:02 AM [facility] Basophils Relative 0.8 % LAB HEMETOLOGY METHOD 08/01/2024 11:02 AM [facility] Immature Granulocytes Relative 0.3 % LAB HEMETOLOGY METHOD 08/01/2024 11:02 AM [facility] Neutrophils Absolute 3.80 1.50 - 7.00 K/mcL LAB HEMETOLOGY METHOD 08/01/2024 11:02 AM [facility] Lymphocytes Absolute 1.34 1.00 - 5.00 K/mcL LAB HEMETOLOGY METHOD 08/01/2024 11:02 AM EDT [facility] Monocytes Absolute 0.41 0.20 - 1.00 K/[facility] LAB HEMETOLOGY METHOD 08/01/2024 11:02 AM EDT [facility] Eosinophils Absolute 0.37 0.00 - 0.50 K/[facility] LAB HEMETOLOGY METHOD 08/01/2024 11:02 AM EDT [facility] Basophils Absolute 0.05 0.00 - 0.20 K/[facility] LAB HEMETOLOGY METHOD 08/01/2024 11:02 AM EDT [facility] Immature Granulocytes Absolute 0.02 0.00 - 0.03 K/[facility] LAB HEMETOLOGY METHOD 08/01/2024 11:02 AM EDT [facility] Blood Venous blood specimen / Unknown Venipuncture / Unknown 08/01/2024 10:13 AM EDT 08/01/2024 10:13 AM EDT us Coates Otto TIRE BUILDING SUPERVISOR LAB BLOOD ORDERABLES Final Resul t Performing Organization Address [facility]/ZIP Co de Phone Number [facility] [address] [place] [address], [place] [phone] * (ABNORMAL) Sedimentation rate (08/01/2024 10:13 AM EDT) Sed Rate 21(H) 0 - 20 mm/hr LAB HEMETOLOGY METHOD 08/01/2024 11:09 AM EDT [facility] Blood Venous blood specimen / Unknown Venipuncture / Unknown 08/01/2024 10:13 AM EDT 08/01/2024 10:13 AM EDT us Coates Otto TIRE BUILDING SUPERVISOR LAB BLOOD ORDERABLES Final Resul t Performing Organization Address City/[facility]/ZIP Co de Phone Number [facility] [address] [place] [address], [place] [phone] * C-reactive protein (08/01/2024 10:13 AM EDT) [facility] C-Reactive Protein <0.29 <=0.50 mg/dL LAB CHEMISTRY METHOD 08/01[facility]2024 [facility] Blood Venous blood specimen / Unknown Venipuncture / Unknown 08/01/2024 10:13 AM EDT 08/01/2024 10:13 AM EDT us Coates Otto TIRE BUILDING SUPERVISOR LAB BLOOD ORDERABLES Final Resul t [facility] [address] [place] [address], [place] [phone] * Comprehensive metabolic panel (08/01/2024 10:13 AM EDT) Only the most recent of3 resultswithin the time period is included. [facility] Sodium 138 133 - 145 mmol/L LAB CHEMISTRY METHOD 08/01/2024 11:34 AM [facility] Potassium 3.9 3.5 - 5.5 mmol/L LAB CHEMISTRY METHOD 08/01/2024 11:34 AM [facility] Chloride 105 96 - 110 mmol/L LAB CHEMISTRY METHOD 08/01/2024 11:34 AM [facility] CO2 24 21 - 32 mmol/L LAB CHEMISTRY METHOD 08/01/2024 11:34 AM [facility] Anion Gap 9 3 - 11 LAB CHEMISTRY METHOD 08/01/2024 11:34 AM [facility] Glucose 95 70 - 100 mg/dL LAB CHEMISTRY METHOD 08/01/2024 11:34 AM [facility] BUN 11 5 - 25 mg/dL LAB CHEMISTRY METHOD 08/01/2024 11:34 AM [facility] Creatinine 0.77 0.70 - 1.30 mg/dL LAB CHEMISTRY METHOD 08/01/2024 11:34 AM [facility] eGFR 96 >=60 mL/min/1. 73m2 LAB CHEMISTRY METHOD 08/01/2024 11:34 AM [facility] Comment:Calculation based on the Chronic Kidney Disease Epidemiology Collaboration (CKD-EPI) equation refit without adjustment for race. BUN/Creatinine Ratio 14.3 LAB CHEMISTRY METHOD 08/01/2024 11:34 AM [facility] Calcium 8.6 8.5 - 10.5 mg/dL LAB CHEMISTRY METHOD 08/01/2024 11:34 AM [facility] AST (SGOT) 15 10 - 42 unit/L LAB CHEMISTRY METHOD 08/01/2024 11:34 AM [facility] ALT (SGPT) 31 10 - 60 unit/L LAB CHEMISTRY METHOD 08/01/2024 11:34 AM [facility] Alkaline Phosphatase 53 42 - 121 unit/L LAB CHEMISTRY METHOD 08/01/2024 11:34 AM [facility] Total Protein 7.1 6.0 - 8.0 g/dL LAB CHEMISTRY METHOD 08/01/2024 11:34 AM [facility] Albumin 3.8 3.2 - 5.0 g/dL LAB CHEMISTRY METHOD 08/01/2024 11:34 AM [facility] Total Bilirubin 0.5 0.0 - 1.4 mg/dL LAB CHEMISTRY METHOD 08/01/2024 11:34 AM [facility] Blood Venous blood specimen / Unknown Venipuncture / Unknown 08/01/2024 10:13 AM EDT 08/01/2024 10:13 AM EDT us Coates Otto TIRE BUILDING SUPERVISOR LAB BLOOD ORDERABLES Final Resul t [facility] [address] [place] [address], [place] [phone] * (ABNORMAL) Basic metabolic panel (07/24/2024 9:00 AM EDT) Only the most recent of7 resultswithin the time period is included. Sodium 140 133 - 145 mmol/L LAB CHEMISTRY METHOD 07/24/2024 11:55 AM [facility] Potassium 4.5 3.5 - 5.5 mmol/L LAB CHEMISTRY METHOD 07/24/2024 11:55 AM [facility] Chloride 107 96 - 110 mmol/L LAB CHEMISTRY METHOD 07/24/2024 11:55 AM [facility] CO2 25 21 - 32 mmol/L LAB CHEMISTRY METHOD 07/24/2024 11:55 AM [facility] Anion Gap 8 3 - 11 LAB CHEMISTRY METHOD 07/24/2024 11:55 AM [facility] Glucose 101(H) 70 - 100 mg/dL LAB CHEMISTRY METHOD 07/24/2024 11:55 AM [facility] BUN 12 5 - 25 mg/dL LAB CHEMISTRY METHOD 07/24/2024 11:55 AM [facility] Creatinine 0.71 0.70 - 1.30 mg/dL LAB CHEMISTRY METHOD 07/24/2024 11:55 AM [facility] eGFR 98 >=60 mL/min/1. 73m2 LAB CHEMISTRY METHOD 07/24/2024 11:55 AM [facility] Comment:Calculation based on the Chronic Kidney Disease Epidemiology Collaboration (CKD-EPI) equation refit without adjustment for race. BUN/Creatinine Ratio 16.9 LAB CHEMISTRY METHOD 07/24/2024 11:55 AM [facility] Calcium 8.8 8.5 - 10.5 mg/dL LAB CHEMISTRY METHOD 07/24/2024 11:55 AM [facility] Blood Venous blood specimen / Unknown Venipuncture / Unknown 07/24/2024 9:00 AM EDT 07/24/2024 9:00 AM EDT Neva Martinez NP LAB BLOOD ORDERABLES Fi nal Result [facility] [address] [place] [address], [place] [phone] * (ABNORMAL) Lipid panel with reflex to direct LDL (07/17/2024 9:32 AM EDT) [facility] Signature Cholesterol 165 0 - 200 mg/dL LAB CHEMISTRY METHOD 07/17/2024 12:09 PM EDT [facility] Triglycerides 266(H) 0 - 150 mg/dL LAB CHEMISTRY METHOD 07/17/2024 12:09 PM EDT [facility] HDL 49 >=40 mg/dL LAB CHEMISTRY METHOD 07/17/2024 12:09 PM EDT [facility] LDL Calculated 63 0 - 100 mg/dL LAB CHEMISTRY METHOD 07/17/2024 12:09 PM EDT [facility] VLDL Cholesterol Jordi 53.2 mg/dL LAB CHEMISTRY METHOD 07/17/2024 12:09 PM EDT [facility] Non HDL Chol. (LDL+VLDL) 116 <145 mg/dL LAB CHEMISTRY METHOD 07/17/2024 12:09 PM EDT [facility] Chol/HDL Ratio 3.4 0.0 - 4.4 LAB CHEMISTRY METHOD 07/17/2024 12:09 PM EDT [facility] Blood Venous blood specimen / Unknown Venipuncture / Unknown 07/17/2024 9:32 AM EDT 07/17/2024 9:32 AM EDT Neva Martinez TIRE BUILDING SUPERVISOR LAB BLOOD ORDERABLES Fi nal Result [facility] [address] [place] [address], [place] [phone] * Prostate specific antigen diagnostic (07/17/2024 9:32 AM EDT) PSA 1.08 0.00 - 4.00 ng/mL LAB CHEMISTRY METHOD 07/17/2024 12:59 PM EDT [facility] Blood Venous blood specimen / Unknown Venipuncture / Unknown 07/17/2024 9:32 AM EDT 07/17/2024 9:32 AM EDT Narrative [facility] - 07/17/2024 12:59 PM EDT The Siemens Advia 2CRiskaur Chemiluminescent Immunoassay is used. Results obtained with different assay methods or kits cannot be used interchangeably. Results cannot be interpreted as absolute evidence of the presence or absence of malignant disease. Neva Martinez NP LAB BLOOD ORDERABLES Fi nal Result Performing Organization Address [facility]/ZIP Co de Phone Number [facility] [address] [place] [address], * Magnesium (07/03/2024 4:53 AM EDT) Only the most recent of2 resultswithin the time period is included. Pathologist [facility] Magnesium 2.2 1.9 - 2.6 mg/dL LAB CHEMISTRY METHOD 07/03/2024 8:18 AM EDT [facility] Blood Venous blood specimen / Unknown Venipuncture / Unknown 07/03/2024 4:53 AM EDT 07/03/2024 7:48 AM EDT Jamarcus Bruno MD LAB BLOOD ORDERABLES Final Resu lt [facility] [address] [place] [address], from Last 3 Months Insurance [employer] Care Teams Animal Technician Relationship Specialty Start Date End Date Akira Castaneda DO [address] [place] [phone] PCP - General Internal Medicine 02/06/24
--- NOTE | 2024-09-30 10:21 | MHC.OFFVIS ---
Intake Visit Reasons: follow up s/p Carotid US 09/26/24 Intake Note: Patient presents for follow up carotid ultrasound performed on 09/26/24. Patient states he has blurry/double vision. Accompanied by: Spouse Allergies No Known Allergies Allergy (Verified 09/30/24 10:22) HPI HPI follow up s/p Carotid US 09/26/24: Details: Very pleasant 73-year-old gentleman presents for follow-up regarding carotid disease. He was originally admitted to [facility] on 06/21/2024. At that time he had an acute stroke and developed altered mental status and aphasia. CT scan demonstrated an acute left thalamic stroke with hemorrhagic extension. Subsequent CT angiogram demonstrated left-sided occlusion and high-grade right carotid stenosis. He subsequently completed some time and a rehab facility for some right arm weakness and generalized blurry vision. He has seen an gui developer with some new corrective lenses. He reports that the blurry vision is bilateral. He now presents to us for follow-up with carotid ultrasound. [facility] Medical History Intracranial hemorrhage Hyperlipidemia, unspecified Essential hypertension Family History Father Stroke Brother Heart attack Social History Patient Tobacco Use Status: Never used Tobacco Review of Systems Const All systems reviewed & are unremarkable except as noted in HPI and below Reports no additional complaints ENT Reports Normal hearing present Card Denies chest pain, Denies chest pain at rest, Denies chest pain with activity and Denies pedal edema Resp Denies cough GI Denies abdominal pain Musc Denies abnormal gait, Denies muscle cramps and Denies radiating pain into limb Skin/Breast Denies skin ulcer and Denies wounds Neuro Reports Normal hearing present and Denies abnormal gait Psych Reports no additional complaints Physical Exam Const General: cooperative, healthy appearing and comfortable Orientation/consciousness: oriented to person, oriented to place and oriented to time HEENT Head: Yes normal to inspection Neck Neck: Yes normal visual inspection Carotids: no bruits Chest Chest palpation & inspection: normal inspection of the chest Resp Effort & Inspection: normal respiratory effort and able to speak in complete sentences Auscultation: clear to auscultation bilaterally, no crackles, no rales, no rhonchi and no wheezes Cardio Rate: regular rate Rhythm: regular rhythm Heart sounds: S1 normal heart sound present and S2 normal heart sound present Bruits: no carotid bruits Peripheral pulses: Peripheral pulses 2+ throughout GI Inspection: Yes normal to inspection Skin Wounds: no wounds Hair: normal Neuro General: oriented to person, oriented to place and oriented to time Cranial nerves: Yes CN's II-XII intact bilaterally and Yes Normal hearing present Cognition (Neuro): normal cognition Motor exam (neuro): 5/5 motor strength present throughout Extrem Other: venous exam: No significant superficial varicosities or spider telangiectasias, minimal edema General: No clubbing, No cyanosis and No edema Psych Appearance: grossly normal Mental Status: mental status grossly normal Speech and movement: Normal speech and movement present Results Reviewed Results Reviewed: Ultrasound dated 09/26/2024 demonstrates known left-sided occlusion right side 80-99% stenosis. Assessment & Plan Assessment & Plan (1) Right cavernous carotid stenosis: Code(s): I65.21 - Occlusion and stenosis of right carotid artery Category: Medical Plan: In short patient has high-grade right carotid stenosis. Patient will require right carotid endarterectomy. Risks benefits complications of the procedure were discussed in detail with the patient and patient's . This included but was not limited to bleeding infection stroke and . He agreed and would like to move forward. In general has no difficulty climbing 2 flights of stairs. He will require cardiac risk stratification. Thank you for allowing us to assist in his care. Coding Level of Care Code Est Pt Level 4 (68649) Diagnoses Right cavernous carotid stenosis I65.21
== END 2024-09-30 10:54 | disposition home or self-care (01) ==
LOC: HO.HVS 09:26
PROVIDERS: Visit Provider Surgery Vascular Surgery
DX: I65.21 Occlusion and stenosis of right carotid artery (principal)
CPT/HCPCS: 99214

== ENCOUNTER → 2024-09-30 09:25 | Outpatient (BNVA) | payer MEDICARE, SELFPAY | PROVIDERS: Visit Provider Surgery Vascular Surgery | DX: I65.21 Occlusion and stenosis of right carotid artery (principal) | CPT/HCPCS: 99212 ==

== ENCOUNTER 2024-10-28 | Outpatient (REF) | payer MEDICARE, SELFPAY ==
[2024-10-28 12:14] VITALS: BP 155/70; PULSE 64; RESP 18; O2SAT 97; BMI 32.3
--- NOTE | 2024-10-28 12:21 | HO.ANESPROP2 ---
HPI - Anesthesia Eval Consult details Narrative: 73yo M for Right Carotid Endarterectomy, pending cardiac cath (+coronary CTA) Pending CTA for cardiac risk stratify with [facility] - No recent illness No CP/SOB with moderate yardwork CVA 06/2024 with [facility] admit - no residual GERD: H2 grant controls Possible JOBY: PSG pending. Noted symptoms during ICU admit with CVA resolved with O2 via [place] [facility] Active Problems Active Problems: All Active Problems Right cavernous carotid stenosis (Acute) Preoperative cardiovascular examination (Acute) Bilateral carotid artery stenosis (Acute) Intracranial hemorrhage (Acute) Hyperlipidemia, unspecified (Acute) Essential hypertension (Acute) Past Medical History Medical History (Updated 10/28/24 @ 12:06 by Rebecca Ramos RN) Gout Arthritis GERD (gastroesophageal reflux disease) Fatty liver Renal cyst Sleep apnea Intracranial hemorrhage Hyperlipidemia, unspecified Essential hypertension Family History Family History Father Stroke Brother Heart attack Family history of problems with anesthesia: No Surgical History Surgical History (Updated 10/28/24 @ 12:08 by Rebecca Ramos RN) H/O colonoscopy History of surgery on lower extremity Hx of left inguinal hernia repair History of Problems with Anesthesia: No Social History Social History Patient Tobacco Use Status: Never used Tobacco Use of substances other than those prescribed or required for medical reasons: No Have you been hit, kicked, punched, or otherwise hurt by someone within the past year? If so, by whom?: No Spiritual Healthcare Practices: no Restorationism Healthcare Practices: no Cultural Healthcare Practices: no Are you DNR?: No Advance Directives on File: No Poor oral hygiene: No Meds Allergies Allergy/AdvReac Type Severity Reaction Status Date / Time No Known Allergies Allergy Verified 09/30/24 10:22 Home Medications ?Medication ?Instructions ?Recorded ?Confirmed ?Last Taken ?Type aspirin 81 mg tablet,delayed 81 mg PO QAM 08/12/24 10/28/24 Unknown History release (Adult Aspirin Regimen) fluticasone propionate 50 2 spray intranasal BID 08/12/24 10/27/24 Unknown History mcg/actuation nasal spray,suspension hydralazine 25 mg tablet 25 mg PO BID 08/12/24 10/27/24 Unknown History lisinopril 40 mg tablet 40 mg PO QAM 08/12/24 10/28/24 Unknown History rosuvastatin 20 mg tablet 20 mg PO QAM 08/12/24 10/28/24 Unknown History allopurinol 100 mg tablet 100 mg PO QAM 08/19/24 10/28/24 Unknown History amlodipine 10 mg tablet 10 mg PO QAM 08/19/24 10/28/24 Unknown History famotidine 40 mg tablet 40 mg PO BEDTIME 08/19/24 10/28/24 Unknown History acetaminophen 325 mg tablet 650 mg PO Q4H PRN Pain 10/28/24 10/28/24 Unknown History Exam Pertinent Lab Results Pertinent Lab Results: Lab Results 10/28/24 10/28/24 Range/Units 13:07 13:18 WBC 7.3 (4.8-10.8) X10*3/uL RBC 4.94 (4.60-5.80) X10*6/uL Hgb 14.7 (14.0-18.0) g/dl Hct 43.5 (42.0-52.0) % MCV 88.1 (80.0-98.0) fL MCH 29.8 (27.0-33.0) pg MCHC 33.8 (31.0-36.0) g/dl RDW 12.1 (11.0-16.0) % Plt Count 207 (160-400) X10*3/uL MPV 10.2 (9.4-12.4) fL Absolute Nucleated RBC 0.000 (0.0-0.012) X10*3/uL Nucleated RBC % (auto) 0.0 (0.0-0.2) /100WBC PT 11.7 (10.9-12.4) SEC INR 1.0 (0.9-1.1) APTT 31.7 (26.7-34.1) SEC Blood Type A Positive Antibody Screen NEGATIVE Narrative Narrative: EKG 08/2024 Details: EKG with underlying sinus rhythm at 81/Min; leftward axis; no ischemic changes; normal ME and corrected QT. ECHO 09/2024 Conclusions: - The left ventricular systolic function is normal. The calculated ejection fraction is 67% by biplane method. - No obvious valvular pathology seen on this study. Coronary CTA 10/2024 pending Airway Mallampati Class: III TM Dist: >3cm Neck ROM: Full Loose/Missing/Broken Teeth: Yes (Molars crowned) Heart: RRR Lungs: CTAB Assessment and Plan Assessment Anesthesia Assessment: Anesthesia Plan Discussed and PAT Visit Final Anesthetic Review Family History of Problems with Anesthesia: No History of Problems with Anesthesia: No
[2024-10-28 14:45] LABS: Hematocrit 43.5 % (42.0-52.0); Hemoglobin 14.7 g/dl (14.0-18.0); Mean Corpuscular HGB Conc 33.8 g/dl (31.0-36.0); Mean Corpuscular Hemoglobin 29.8 pg (27.0-33.0); Mean Corpuscular Volume 88.1 fL (80.0-98.0); NRBC Abs Auto 0.000 X10*3/uL (0.0-0.012); NRBC Pct Auto 0.0 /100WBC (0.0-0.2); Platelet Count 207 X10*3/uL (160-400); Red Blood Count 4.94 X10*6/uL (4.60-5.80); White Blood Count 7.3 X10*3/uL (4.8-10.8)
[2024-10-28 14:55] LABS: INTERNATIONAL NORM RATIO 1.0 (0.9-1.1); Prothrombin Time 11.7 SEC (10.9-12.4)
[2024-10-28 14:57] LABS: Partial Thromboplastin Time 31.7 SEC (26.7-34.1)
--- OUTSIDE RECORDS SUMMARY | 2024-12-01 09:31 | XMS_ITS | Encounter Summary ---
Author Organization [facility] Address [address] [place] [address] Care Team Providers Care Concert Promoter Name Role Phone Akira Castaneda DO Primary Care Provider [phone] Encounter Details Date Type Department Care Team (Late st Contact Info) Description 07/11/2024 Lab Requisition [facility] - Main Lab [address] [place] [address] Jamarcus Bruno MD [address] [place] [phone] Encounter for other general examination Social History [...] LAB CHEMISTRY METHOD 07/11/2024 10:58 AM EDT [facility] Potassium 4.3 3.5 - 5.5 mmol/L LAB CHEMISTRY METHOD 07/11/2024 10:58 AM EDT [facility] Chloride 98 96 - 110 mmol/L LAB CHEMISTRY METHOD 07/11/2024 10:58 AM T [facility] CO2 24 21 - 32 mmol/L LAB CHEMISTRY METHOD 07/11/2024 10:58 AM [facility] Anion Gap 11 3 - 11 LAB CHEMISTRY METHOD 07/11/2024 10:58 AM [facility] Glucose 86 70 - 100 mg/dL LAB CHEMISTRY METHOD 07/11/2024 10:58 AM [facility] BUN 30(H) 5 - 25 mg/dL LAB CHEMISTRY METHOD 07/11/2024 10:58 AM [facility] Creatinine 0.78 0.70 - 1.30 mg/dL LAB CHEMISTRY METHOD 07/11/2024 10:58 AM [facility] eGFR 95 >=60 mL/min/1. 73m2 LAB CHEMISTRY METHOD 07/11/2024 10:58 AM [facility] Comment:Calculation based on the Chronic Kidney Disease Epidemiology Collaboration (CKD-EPI) equation refit without adjustment for race. BUN/Creatinine Ratio 38.5 LAB CHEMISTRY METHOD 07/11/2024 10:58 AM [facility] Calcium 9.1 8.5 - 10.5 mg/dL LAB CHEMISTRY METHOD 07/11/2024 10:58 AM [facility] Blood Venous blood specimen / Unknown Venipuncture / Unknown 07/11/2024 5:54 AM EDT 07/11/2024 9:17 AM EDT us Jamarcus Bruno MD LAB BLOOD ORDERABLES Final Resu lt [facility] [address] [place] [address], documented in this encounter Visit Diagnoses Diagnosis Encounter for other general examination documented in this encounter Care Teams Concert Promoter Relationship Specialty Start Date End Date Akira Castaneda DO [address] [place] [phone] PCP - General Internal Medicine 02/06/24 documented as of this encounter
--- OUTSIDE RECORDS SUMMARY | 2024-12-01 09:31 | XMS_ITS | Encounter Summary ---
Author Organization [facility] Address [address] [place] [address] Care Team Providers Care Academic Interventionist Name Role Phone Akira Castaneda DO Primary Care Provider [phone] Encounter Details Date Type Department Care Team (Late st Contact Info) Description 07/10/2024 Lab Requisition [facility] - Main Lab [address] [place] [address] Jamarcus Bruno MD [address] [place] [phone] Encounter for other general examination Social History [...] mmol/L LAB CHEMISTRY METHOD 07/10/2024 7:57 AM [facility] CO2 24 21 - 32 mmol/L LAB CHEMISTRY METHOD 07/10/2024 7:57 AM [facility] Anion Gap 9 3 - 11 LAB CHEMISTRY METHOD 07/10/2024 7:57 AM [facility] Glucose 97 70 - 100 mg/dL LAB CHEMISTRY METHOD 07/10/2024 7:57 AM [facility] BUN 36(H) 5 - 25 mg/dL LAB CHEMISTRY METHOD 07/10/2024 7:57 AM [facility] Creatinine 0.87 0.70 - 1.30 mg/dL LAB CHEMISTRY METHOD 07/10/2024 7:57 AM [facility] eGFR 92 >=60 mL/min/1. 73m2 LAB CHEMISTRY METHOD 07/10/2024 7:57 AM [facility] Comment:Calculation based on the Chronic Kidney Disease Epidemiology Collaboration (CKD-EPI) equation refit without adjustment for race. BUN/Creatinine Ratio 41.4 LAB CHEMISTRY METHOD 07/10/2024 7:57 AM [facility] Calcium 9.3 8.5 - 10.5 mg/dL LAB CHEMISTRY METHOD 07/10/2024 7:57 AM [facility] Blood Venous blood specimen / Unknown Venipuncture / Unknown 07/10/2024 5:02 AM EDT 07/10/2024 6:55 AM EDT us Jamarcus Bruno MD LAB BLOOD ORDERABLES Final Resu lt [facility] [address] [place] [address], documented in this encounter Visit Diagnoses Diagnosis Encounter for other general examination documented in this encounter Care Teams Academic Interventionist Relationship Specialty Start Date End Date Akira Castaneda DO [address] [place] [phone] PCP - General Internal Medicine 02/06/24 documented as of this encounter
--- OUTSIDE RECORDS SUMMARY | 2024-12-01 09:31 | XMS_ITS | Encounter Summary ---
Author Organization [facility] Address [address] [place] [address] Care Team Providers Care Creel Cleaner Name Role Phone Akira Castaneda DO Primary Care Provider [phone] Encounter Details Date Type Department Care Team (Late st Contact Info) Description 07/04/2024 Lab Requisition [facility] - Main Lab [address] [place] [address] Jamarcus Bruno MD [address] [place] [address] Encounter for other general examination Social History [...] LAB CHEMISTRY METHOD 07/04/2024 10:32 AM EDT [facility] Potassium 4.9 3.5 - 5.5 mmol/L LAB CHEMISTRY METHOD 07/04/2024 10:32 AM EDT [facility] Chloride 99 96 - 110 mmol/L LAB CHEMISTRY METHOD 07/04/2024 10:32 AM [facility] CO2 19(L) 21 - 32 mmol/L LAB CHEMISTRY METHOD 07/04/2024 10:32 AM [facility] Anion Gap 12(H) 3 - 11 LAB CHEMISTRY METHOD 07/04/2024 10:32 AM [facility] Glucose 77 70 - 100 mg/dL LAB CHEMISTRY METHOD 07/04/2024 10:32 AM [facility] BUN 28(H) 5 - 25 mg/dL LAB CHEMISTRY METHOD 07/04/2024 10:32 AM [facility] Creatinine 0.73 0.70 - 1.30 mg/dL LAB CHEMISTRY METHOD 07/04/2024 10:32 AM [facility] eGFR 97 >=60 mL/min/1. 73m2 LAB CHEMISTRY METHOD 07/04/2024 10:32 AM [facility] Comment:Calculation based on the Chronic Kidney Disease Epidemiology Collaboration (CKD-EPI) equation refit without adjustment for race. BUN/Creatinine Ratio 38.4 LAB CHEMISTRY METHOD 07/04/2024 10:32 AM [facility] Calcium 9.0 8.5 - 10.5 mg/dL LAB CHEMISTRY METHOD 07/04/2024 10:32 AM [facility] Blood Venous blood specimen / Unknown Venipuncture / Unknown 07/04/2024 5:53 AM EDT 07/04/2024 8:55 AM EDT us Jamarcus Bruno MD LAB BLOOD ORDERABLES Final Resu lt [facility] [address] [place] [address], documented in this encounter Visit Diagnoses Diagnosis Encounter for other general examination documented in this encounter Care Teams Creel Cleaner Relationship Specialty Start Date End Date Akira Castaneda DO [address] [place] [phone] PCP - General Internal Medicine 02/06/24 documented as of this encounter
--- OUTSIDE RECORDS SUMMARY | 2024-12-01 09:31 | XMS_ITS | Encounter Summary ---
Author Organization [facility] Address [address] [place] [address] Care Team Providers Care Biostatistics Professor Name Role Phone Akira Castaneda DO Primary Care Provider Encounter Details Date Type Department Care Team (Late st Contact Info) Description 07/01/[address] [facility] - Main Lab [address] [place] [address] Jamarcus Bruno MD [address] [place] [address] Encounter for other general examination Social [...] LAB CHEMISTRY METHOD 07/01/2024 11:22 AM EDT [facility] Potassium 4.3 3.5 - 5.5 mmol/L LAB CHEMISTRY METHOD 07/01/2024 11:22 AM EDT [facility] Chloride 96 96 - 110 mmol/L LAB CHEMISTRY METHOD 07/01/2024 11:22 AM [facility] CO2 23 21 - 32 mmol/L LAB CHEMISTRY METHOD 07/01/2024 11:22 AM [facility] Anion Gap 11 3 - 11 LAB CHEMISTRY METHOD 07/01/2024 11:22 AM [facility] Glucose 99 70 - 100 mg/dL LAB CHEMISTRY METHOD 07/01/2024 11:22 AM [facility] BUN 18 5 - 25 mg/dL LAB CHEMISTRY METHOD 07/01/2024 11:22 AM [facility] Creatinine 0.59(L) 0.70 - 1.30 mg/dL LAB CHEMISTRY METHOD 07/01/2024 11:22 AM [facility] eGFR 104 >=60 mL/min/1. 73m2 LAB CHEMISTRY METHOD 07/01/2024 11:22 AM [facility] Comment:Calculation based on the Chronic Kidney Disease Epidemiology Collaboration (CKD-EPI) equation refit without adjustment for race. BUN/Creatinine Ratio 30.5 LAB CHEMISTRY METHOD 07/01/2024 11:22 AM [facility] Calcium 8.3(L) 8.5 - 10.5 mg/dL LAB CHEMISTRY METHOD 07/01/2024 11:22 AM [facility] Blood Venous blood specimen / Unknown Venipuncture / Unknown 07/01/2024 6:45 AM EDT 07/01/2024 9:38 AM EDT us Jamarcus Bruno MD LAB BLOOD ORDERABLES Final Resu lt [facility] [address] [place] [address], documented in this encounter Visit Diagnoses Diagnosis Encounter for other general examination documented in this encounter Care Teams Biostatistics Professor Relationship Specialty Start Date End Date Akira Castaneda DO [address] [place] [phone] PCP - General Internal Medicine 02/06/24 documented as of this encounter
--- OUTSIDE RECORDS SUMMARY | 2024-12-01 09:31 | XMS_ITS | Encounter Summary ---
Author Organization [facility] Address [address] [place] [address] Care Team Providers Care Greens Planter Name Role Phone DollyAkira moore Primary Care Provider [phone] Encounter Details Date Type Department Care Team (Late st Contact Info) Description 06/30/2024 Lab Requisition [facility] - Main Lab [address] [facility] [employer] [place] [address] Jamarcus Bruno MD [address] [place] [phone] Encounter for other general examination Social History [...] CBC auto differential (06/30/2024 5:37 AM EDT) [facility] WBC 10.0 4.8 - 10.8 K/mcL LAB HEMETOLOGY METHOD 06/30/2024 12:15 PM EDT [facility] RBC 4.50 4.50 - 5.50 M/mcL LAB HEMETOLOGY METHOD 06/30/2024 12:15 PM EDT [facility] Hemoglobin 13.9 13.5 - 17.5 g/dL LAB HEMETOLOGY METHOD 06/30/2024 12:15 PM EDT [facility] Hematocrit 41.0(L) 42.0 - 54.0 % LAB HEMETOLOGY METHOD 06/30/2024 12:15 PM EDT [facility] MCV 91.7 79.0 - 98.0 FL LAB [facility] MCH 31.1 27.0 - 32.0 pcg LAB HEMETOLOGY METHOD 06/30/2024 12:15 PM EDT [facility] MCHC 33.9 32.0 - 37.0 g/dL LAB HEMETOLOGY METHOD 06/30/2024 12:15 PM EDT [facility] RDW 11.8 11.0 - 15.0 % LAB HEMETOLOGY METHOD 06/30/2024 12:15 PM EDT [facility] Platelets 271 130 - 400 K/mcL LAB HEMETOLOGY METHOD 06/30/2024 12:15 PM EDT [facility] MPV 9.3 7.0 - 11.0 FL LAB HEMETOLOGY METHOD 06/30/2024 12:15 PM EDT [facility] NRBC 0.0 <1.0 % LAB HEMETOLOGY METHOD 06/30/2024 12:15 PM EDT [facility] NRBC Absolute 0.00 <0.10 K/mcL LAB [facility] Neutrophils Relative 68.1 % LAB HEMETOLOGY METHOD 06/30/2024 12:[address] [facility] Lymphocytes Relative 15.4 % LAB HEMETOLOGY METHOD 06/30/2024 12:[address] [facility] Monocytes Relative 9.7 % LAB HEMETOLOGY METHOD 06/30/2024 12:[address] [facility] Eosinophils Relative 5.5 % LAB HEMETOLOGY METHOD 06/30/2024 12:[address] [facility] Basophils Relative 0.8 % LAB HEMETOLOGY METHOD 06/30/2024 12:[address] [facility] Immature Granulocytes Relative 0.5 % LAB HEMETOLOGY METHOD 06/30/2024 12:[address] [facility] Neutrophils Absolute 6.78 1.50 - 7.00 K/mcL LAB HEMETOLOGY METHOD 06/30/2024 12:[address] [facility] Lymphocytes Absolute 1.53 1.00 - 5.00 K/mcL LAB HEMETOLOGY METHOD 06/30/2024 12:[address] [facility] Monocytes Absolute 0.97 0.20 - 1.00 K/mcL LAB HEMETOLOGY METHOD 06/30/2024 12:[address] [facility] Eosinophils Absolute 0.55(H) 0.00 - 0.50 K/mcL LAB HEMETOLOGY METHOD 06/30/2024 12:[address] [facility] Basophils Absolute 0.08 0.00 - 0.20 K/mcL LAB HEMETOLOGY METHOD 06/30/2024 12:[address] [facility] Immature Granulocytes Absolute 0.05(H) 0.00 - 0.03 K/mcL LAB HEMETOLOGY METHOD 06/30/2024 12:[address] [facility] Blood Venous blood specimen / Unknown Venipuncture / Unknown 06/30/2024 5:37 AM EDT 06/30/2024 10:16 AM EDT us Jamarcus Bruno MD LAB BLOOD ORDERABLES Final Resu lt Performing Organization Address [facility]/ZIP Co de Phone Number [facility] [address] [place] [address], [place] [phone] * Magnesium (06/30/2024 5:37 AM EDT) Pathologist [facility] Magnesium 2.2 1.9 - 2.6 mg/dL LAB CHEMISTRY METHOD 06/30/2024 1:35 PM EDT [facility] Blood Venous blood specimen / Unknown Venipuncture / Unknown 06/30/2024 5:37 AM EDT 06/30/2024 10:16 AM EDT us Jamarcus Bruno MD LAB BLOOD ORDERABLES Final Resu lt Performing Organization Address [facility]/ZIP Co de Phone Number [facility] [address] [place] [address], [place] [phone] * (ABNORMAL) Comprehensive metabolic panel (06/30/2024 5:37 AM EDT) Sodium 127(L) 133 - 145 mmol/L LAB CHEMISTRY METHOD 06/30/2024 2:11 PM EDT [facility] Potassium 4.0 3.5 - 5.5 mmol/L LAB CHEMISTRY METHOD 06/30/2024 2:11 PM EDT [facility] Chloride 93(L) 96 - 110 mmol/L LAB CHEMISTRY METHOD 06/30/2024 2:11 PM EDT [facility] CO2 20(L) 21 - 32 mmol/L LAB CHEMISTRY METHOD 06/30/2024 2:11 PM EDT [facility] Anion Gap 14(H) 3 - 11 LAB CHEMISTRY METHOD 06/30/2024 2:[address] [facility] Glucose 102(H) 70 - 100 mg/dL LAB CHEMISTRY METHOD 06/30/2024 2:[address] [facility] BUN 19 5 - 25 mg/dL LAB CHEMISTRY METHOD 06/30/2024 2:[address] [facility] Creatinine 0.69(L) 0.70 - 1.30 mg/dL LAB CHEMISTRY METHOD 06/30/2024 2:[address] [facility] eGFR 99 >=60 mL/min/1. 73m2 LAB CHEMISTRY METHOD 06/30/2024 2:[address] [facility] Comment:Calculation based on the Chronic Kidney Disease Epidemiology Collaboration (CKD-EPI) equation refit without adjustment for race. BUN/Creatinine Ratio 27.5 LAB CHEMISTRY METHOD 06/30/2024 2:[address] [facility] Calcium 8.7 8.5 - 10.5 mg/dL LAB CHEMISTRY METHOD 06/30/2024 2:[address] [facility] AST (SGOT) 34 10 - 42 unit/L LAB CHEMISTRY METHOD 06/30/2024 2:[address] [facility] ALT (SGPT) 86(H) 10 - 60 unit/L LAB CHEMISTRY METHOD 06/30/2024 2:[address] [facility] Comment:Results verified by repeat testing Alkaline Phosphatase 63 42 - 121 unit/L LAB CHEMISTRY METHOD 06/30/2024 2:[address] [facility] Total Protein 6.9 6.0 - 8.0 g/dL LAB CHEMISTRY METHOD 06/30/2024 2:[address] [facility] Albumin 3.1(L) 3.2 - 5.0 g/dL LAB CHEMISTRY METHOD 06/30/2024 2:[address] [facility] Total Bilirubin 0.6 0.0 - 1.4 mg/dL LAB CHEMISTRY METHOD 06/30/2024 2:11 PM EDT [facility] Blood Venous blood specimen / Unknown Venipuncture / Unknown 06/30/2024 5:37 AM EDT 06/30/2024 10:16 AM EDT us Jamarcus Bruno MD LAB BLOOD ORDERABLES Final Resu lt [facility] [address] [place] [address], documented in this encounter Visit Diagnoses Diagnosis Encounter for other general examination documented in this encounter Care Teams Greens Planter Relationship Specialty Start Date End Date Akira Castaneda DO [address] [place] [phone] PCP - General Internal Medicine 02/06/24 documented as of this encounter
--- OUTSIDE RECORDS SUMMARY | 2024-12-01 09:31 | XMS_ITS | Encounter Summary ---
Author Organization [facility] Address [address] [place] [address] Care Team Providers Care Solderer Production Line Name Role Phone Akira Castaneda DO Primary Care Provider [phone] Encounter Details Date Type Department Care Team (Late st Contact Info) Description 07/03/2024 Lab Requisition [facility] - Main Lab [address] [place] [address] Jamarcus Bruno MD [address] [place] [phone] Encounter for other general examination Social History [...] LAB CHEMISTRY METHOD 07/03/2024 8:18 AM EDT [facility] Blood Venous blood specimen / Unknown Venipuncture / Unknown 07/03/2024 4:53 AM EDT 07/03/2024 7:48 AM EDT us Jamarcus Bruno MD LAB BLOOD ORDERABLES Final Resu lt [facility] [address] [place] [address], [place] [phone] * (ABNORMAL) Basic metabolic panel (07/03/2024 4:53 AM EDT) Sodium 128(L) 133 - 145 mmol/L LAB CHEMISTRY METHOD 07/03/2024 8:41 AM [facility] Potassium 4.6 3.5 - 5.5 mmol/L LAB CHEMISTRY METHOD 07/03/2024 8:41 AM [facility] Chloride 96 96 - 110 mmol/L LAB CHEMISTRY METHOD 07/03/2024 8:41 AM [facility] CO2 24 21 - 32 mmol/L LAB CHEMISTRY METHOD 07/03/2024 8:41 AM [facility] Anion Gap 8 3 - 11 LAB CHEMISTRY METHOD 07/03/2024 8:41 AM [facility] Glucose 107(H) 70 - 100 mg/dL LAB CHEMISTRY METHOD 07/03/2024 8:41 AM [facility] BUN 33(H) 5 - 25 mg/dL LAB CHEMISTRY METHOD 07/03/2024 8:41 AM [facility] Comment:Results verified by repeat testing Creatinine 0.79 0.70 - 1.30 mg/dL LAB CHEMISTRY METHOD 07/03/2024 8:41 AM [facility] eGFR 95 >=60 mL/min/1. 73m2 LAB CHEMISTRY METHOD 07/03/2024 8:41 AM [facility] Comment:Calculation based on [...] lt [facility] [address] [place] [address], [place] [phone] documented in this encounter Visit Diagnoses Diagnosis Encounter for other general examination documented in this encounter Care Teams Solderer Production Line Relationship Specialty Start Date End Date Akira Castaneda DO [address] [place] [phone] PCP - General Internal Medicine 02/06/24 documented as of this encounter
--- OUTSIDE RECORDS SUMMARY | 2024-12-01 09:31 | XMS_ITS | Clinical Summary ---
Author Organization [address] Address [address] [place] [phone] Phone Care Team Providers Care Mineral Resources Inspector Name Role Phone Tonya Akira BRYANT Primary Care Provider [phone] Encounters Date Type Department Care Team Description 10/13/2024 6:31 AM EDT - 10/13/2024 11:59 PM EDT Hospital Encounter [facility] Ultrasound [address] [place] [phone] Fatty liver Discharge Disposition: Home or Self Care 10/06/2024 9:27 AM EDT - 10/06/2024 11:59 PM EDT Hospital Encounter [facility] Ultrasound [address] [place] [phone] Bilateral renal masses Discharge Disposition: Home or Self Care from Last 3 Months Social History Tobacco Use Types Packs/Day Years Used Date Smoking Tobacco: Never Assessed Sex and Gender Information Value Date Recorded Sex Assigned at Not on file Legal Sex Male 11:27 PM EST Gender Identity Not on file Sexual Orientation Not on file Plan of Treatment Health Maintenance Due Date Last Done Comments Colorectal Cancer Screening: Colonoscopy 1950 Pneumococcal Vaccine: 50+ Years (1 of 1 - PCV) 2002 Zoster Vaccines (1 of 2) 2002 DTaP,Tdap,and Td Vaccines (2 - Td or Tdap) 02/15/2017 02/15/2007 Abdominal Aortic Aneurysm (AAA) Screen 01/22/2022 Falls Risk Assessment 01/22/2022 Hepatitis C Screening 01/22/2022 Medicare Annual Wellness Visit 01/22/2022 Social Influencers of Health Screening 01/22/2022 Depression Screening 02/20/2024 COVID-19 Vaccine ( season) 2024 02/13/2022, 12/30/2020, 05/24/2020, Additional history exists Influenza Vaccine (#1) 2024 , 11/21/2022, 10/20/2021, Additional history exists RSV Immunization Adult Patients [...] 10/06/2024 10:06 AM EDT Bilateral renal masses LIPID PANEL WITH REFLEX TO DIRECT LDL [...] Signed Date: 10/14/2024 10:49 ET Workstation ID: [id number] Transcribed By: Self Edit Transcribed Date: 10/14/2024 [...] Signed Date: 10/14/2024 10:49 ET Workstation ID: [id number] Transcribed By: Self Edit Transcribed Date: 10/14/2024 10:43 ET us Akira Mariame DO IMG US PROCEDURES Final Resul t * US Retroperitoneal Complete (10/06/2024 10:06 AM EDT) Anatomical Region Laterality Modality Body Ultrasound 10/06/2024 10:2 1 AM EDT Impressions 10/06/2024 10:36 AM EDT Impression: Bilateral renal cysts confirmed. No suspicious solid mass identified. [place] PA ([id number]) -------- FINAL REPORT -------- Dictated By: Ashley Palomares Dictated Date: 10/06/2024 10:21 ET Assigned Physician: Ashley Palomares Reviewed and Electronically Signed By: Ashley Palomares Signed Date: 10/06/2024 10:36 ET Workstation ID: [id number] Transcribed By: Self Edit Transcribed Date: 10/06/2024 [...] confirmed. No suspicious solid mass identified. [employer]eler[employer] JULES ([id number]) -------- FINAL REPORT -------- Dictated By: Ashley Palomares Dictated Date: 10/06/2024 10:21 ET Assigned Physician: Ashley Palomares Reviewed and Electronically Signed By: Ashley Palomares Signed Date: 10/06/2024 10:36 ET Workstation ID: [id number] Transcribed By: Self Edit Transcribed Date: 10/06/2024 10:21 ET us Akira Castaneda DO [facility] US PROCEDURES Final Resul t * (ABNORMAL) Lipid panel with reflex to direct LDL (07/17/2024 9:32 AM EDT) Cholesterol 165 0 - 200 mg/dL LAB CHEMISTRY METHOD 07/17/2024 12:09 PM EDT [facility] Triglycerides 266(H) 0 - 150 mg/dL LAB CHEMISTRY METHOD 07/17/2024 12:09 PM EDT [facility] HDL 49 >=40 mg/dL LAB CHEMISTRY METHOD 07/17/2024 12:09 PM EDT [facility] LDL Calculated 63 0 - 100 mg/dL LAB CHEMISTRY METHOD 07/17/2024 12:09 PM EDT [facility] VLDL Cholesterol Jordi 53.2 mg/dL LAB CHEMISTRY METHOD 07/17/2024 12:09 PM EDT [facility] Non HDL Chol. (LDL+VLDL) 116 <145 mg/dL LAB CHEMISTRY METHOD 07/17/2024 12:09 PM EDT [facility] Chol/HDL Ratio 3.4 0.0 - 4.4 LAB CHEMISTRY METHOD 07/17/2024 12:09 PM EDT [facility] Blood Venous blood specimen / Unknown Venipuncture / Unknown 07/17/2024 9:32 AM EDT 07/17/2024 9:32 AM EDT Neva Martinez NP LAB BLOOD ORDERABLES Fi nal Result [facility] [address] [place] [address], from Last 3 Months or Most Recently Relevant to Health Maintenance Insurance [facility] MEDIC[facility] Care Teams Mineral Resources Inspector Relationship Specialty Start Date End Date Akira Castaneda DO [address] [place] [phone] PCP - General Internal Medicine 02/06/24
--- OUTSIDE RECORDS SUMMARY | 2024-12-01 09:31 | XMS_ITS | Encounter Summary ---
Author Organization [facility] Address [address] [place] [address] Care Team Providers Care Machine Woodworking Sander Name Role Phone Akira Castaneda DO Primary Care Provider [phone] Encounter Details Date Type Department Care Team (Late st Contact Info) Description 07/07/[address] [facility] - Main Lab [address] [place] [address] Jamarcus Bruno MD [address] [place] [phone] Encounter for other general examination Social History [...] LAB CHEMISTRY METHOD 07/07/2024 11:55 AM EDT [facility] Potassium 4.3 3.5 - 5.5 mmol/L LAB CHEMISTRY METHOD 07/07/2024 11:55 AM EDT [facility] Chloride 99 96 - 110 mmol/L LAB CHEMISTRY METHOD 07/07/2024 11:55 AM [facility] CO2 23 21 - 32 mmol/L LAB CHEMISTRY METHOD 07/07/2024 11:55 AM [facility] Anion Gap 12(H) 3 - 11 LAB CHEMISTRY METHOD 07/07/2024 11:55 AM [facility] Glucose 89 70 - 100 mg/dL LAB CHEMISTRY METHOD 07/07/2024 11:55 AM [facility] BUN 30(H) 5 - 25 mg/dL LAB CHEMISTRY METHOD 07/07/2024 11:55 AM [facility] Creatinine 0.84 0.70 - 1.30 mg/dL LAB CHEMISTRY METHOD 07/07/2024 11:55 AM [facility] eGFR 93 >=60 mL/min/1. 73m2 LAB CHEMISTRY METHOD 07/07/2024 11:55 AM [facility] Comment:Calculation based on the Chronic Kidney Disease Epidemiology Collaboration (CKD-EPI) equation refit without adjustment for race. BUN/Creatinine Ratio 35.7 LAB CHEMISTRY METHOD 07/07/2024 11:55 AM [facility] Calcium 9.4 8.5 - 10.5 mg/dL LAB CHEMISTRY METHOD 07/07/2024 11:55 AM [facility] Blood Venous blood specimen / Unknown Venipuncture / Unknown 07/07/2024 5:08 AM EDT 07/07/2024 10:02 AM EDT us Jamarcus Bruno MD LAB BLOOD ORDERABLES Final Resu lt [facility] [address] [place] [address], documented in this encounter Visit Diagnoses Diagnosis Encounter for other general examination documented in this encounter Care Teams Machine Woodworking Sander Relationship Specialty Start Date End Date Akira Castaneda DO [address] [place] [phone] PCP - General Internal Medicine 02/06/24 documented as of this encounter
== END 2024-10-28 00:01 | disposition home or self-care (01) ==
LOC: HO.PAT
PROVIDERS: Nurse Practitioner; PCP Internal Medicine; Visit Provider Surgery Vascular Surgery
DX: Z01.810 Encounter for preprocedural cardiovascular examination (principal); Z01.84 Encounter for antibody response examination; I65.21 Occlusion and stenosis of right carotid artery
CPT/HCPCS: 36415; 85027; 85610; 85730; 86850; 86900; 86901

== ENCOUNTER 2024-10-28 11:26 | Outpatient (REF) | payer MEDICARE, SELFPAY ==
[2024-10-28 12:20] LABS: Anion Gap 12 (12-20); Blood Urea Nitrogen 13 mg/dL (9-16); Calcium 9.5 mg/dL (8.4-10.2); Carbon Dioxide 27 mmol/L (22-29); Chloride 106 mmol/L (96-108); Estimated Glomerular Filt Rate > 60; Potassium 4.2 mmol/L (3.3-5.1); Sodium 141 mmol/L (135-145)
--- OUTSIDE RECORDS SUMMARY | 2024-10-28 13:55 | XMS_ITS | Encounter Summary ---
Author Organization [facility] Address [address] [place] [address] Care Team Providers Care Flour Broker Name Role Phone Akira Castaneda DO Primary Care Provider [phone] Encounter Details Date Type Department Care Team (Late st Contact Info) Description 07/11/2024 Lab Requisition [facility] - Main Lab [address] [place] [address] Jamarcus Bruno MD [address] [place] [id number] Encounter for other general examination Social History Tobacco Use Types Packs/Day Years Used Date Smoking Tobacco: Never Assessed Sex and Gender Information Value Date Recorded Sex Assigned at Not on file Legal Sex Male 11:27 PM EST Gender Identity Not on file Sexual Orientation Not on file documented as of this encounter Plan of Treatment Not on file documented as of this encounter Procedures Procedure Name Priority Date/Time Associated Diagnosis Comments BASIC METABOLIC PANEL Routine 07/11/2024 5:54 AM EDT Encounter for other general examination documented in this encounter Results * (ABNORMAL) Basic metabolic panel (07/11/2024 5:54 AM EDT) Sodium 133 133 - 145 mmol/L LAB CHEMISTRY METHOD 07/11/2024 10:58 AM EDT [facility] Potassium 4.3 3.5 - 5.5 mmol/L LAB CHEMISTRY METHOD 07/11/2024 10:58 AM EDT [facility] Chloride 98 96 - 110 mmol/L LAB CHEMISTRY METHOD 07/11/2024 10:58 AM T [facility] CO2 24 21 - 32 mmol/L LAB CHEMISTRY METHOD 07/11/2024 10:58 AM [facility] Anion Gap 11 3 - 11 LAB CHEMISTRY METHOD 07/11/2024 10:58 AM [facility] Glucose 86 70 - 100 mg/dL LAB CHEMISTRY METHOD 07/11/2024 10:58 AM [facility] BUN 30(H) 5 - 25 mg/dL LAB CHEMISTRY METHOD 07/11/2024 10:58 AM [facility] Creatinine 0.78 0.70 - 1.30 mg/dL LAB CHEMISTRY METHOD 07/11/2024 10:58 AM [facility] eGFR 95 >=60 mL/min/1. 73m2 LAB CHEMISTRY METHOD 07/11/2024 10:58 AM [facility] Comment:Calculation based on the Chronic Kidney Disease Epidemiology Collaboration (CKD-EPI) equation refit without adjustment for race. BUN/Creatinine Ratio 38.5 LAB CHEMISTRY METHOD 07/11/2024 10:58 AM [facility] Calcium 9.1 8.5 - 10.5 mg/dL LAB CHEMISTRY METHOD 07/11/2024 10:58 AM [facility] Blood Venous blood specimen / Unknown Venipuncture / Unknown 07/11/2024 5:54 AM EDT 07/11/2024 9:17 AM EDT us Jamarcus Bruno MD LAB BLOOD ORDERABLES Final Resu lt [facility] [address] [place] [address], documented in this encounter Visit Diagnoses Diagnosis Encounter for other general examination documented in this encounter Care Teams Flour Broker Relationship Specialty Start Date End Date Akira Castaneda DO [address] [place] [phone] PCP - General Internal Medicine 02/06/24 documented as of this encounter
--- OUTSIDE RECORDS SUMMARY | 2024-10-28 13:55 | XMS_ITS | Encounter Summary ---
Author Organization [facility] Address [address] [place] [address] Care Team Providers Care Pediatric Intensive Physician Name Role Phone Akira Castaneda DO Primary Care Provider [phone] Encounter Details Date Type Department Care Team (Late st Contact Info) Description 07/10/2024 Lab Requisition [facility] - Main Lab [address] [place] [address] Jamarcus Bruno MD [address] [place] [phone] Encounter for other general examination Social History [...] Associated Diagnosis Comments BASIC METABOLIC PANEL Routine 07/10/2024 5:02 AM EDT Encounter for other general examination documented in this encounter Results * (ABNORMAL) Basic metabolic panel (07/10/2024 5:02 AM EDT) Sodium 133 133 - 145 mmol/L LAB CHEMISTRY METHOD 07/10/2024 7:[address] [facility] Potassium 4.6 3.5 - 5.5 mmol/L LAB CHEMISTRY METHOD 07/10/2024 7:[address] [facility] Chloride 100 96 - 110 mmol/L LAB CHEMISTRY METHOD 07/10/2024 7:[address] [facility] CO2 24 21 - 32 mmol/L LAB CHEMISTRY METHOD 07/10/2024 7:[address] [facility] Anion Gap 9 3 - 11 LAB CHEMISTRY METHOD 07/10/2024 7:[address] [facility] Glucose 97 70 - 100 mg/dL LAB CHEMISTRY METHOD 07/10/2024 7:[address] [facility] BUN 36(H) 5 - 25 mg/dL LAB CHEMISTRY METHOD 07/10/2024 7:[address] [facility] Creatinine 0.87 0.70 - 1.30 mg/dL LAB CHEMISTRY METHOD 07/10/2024 7:[address] [facility] eGFR 92 >=60 mL/min/1. 73m2 LAB CHEMISTRY METHOD 07/10/2024 7:[address] [facility] Comment:Calculation based on the Chronic Kidney Disease Epidemiology Collaboration (CKD-EPI) equation refit without adjustment for race. BUN/Creatinine Ratio 41.4 LAB CHEMISTRY METHOD 07/10/2024 7:[address] [facility] Calcium 9.3 8.5 - 10.5 mg/dL LAB CHEMISTRY METHOD 07/10/2024 7:[address] [facility] Blood Venous blood specimen / Unknown Venipuncture / Unknown 07/10/2024 5:02 AM EDT 07/10/2024 6:55 AM EDT us Jamarcus Bruno MD LAB BLOOD ORDERABLES Final Resu lt [facility] [address] [place] [address], documented in this encounter Visit Diagnoses Diagnosis Encounter for other general examination documented in this encounter Care Teams Pediatric Intensive Physician Relationship Specialty Start Date End Date Akira Castaneda DO [address] [place] [phone] PCP - General Internal Medicine 02/06/24 documented as of this encounter
--- OUTSIDE RECORDS SUMMARY | 2024-10-28 13:55 | XMS_ITS | Encounter Summary ---
Author Organization [facility] Address [address] [place] [address] Care Team Providers Care Steam Train Driver Name Role Phone Akira Castaneda DO Primary Care Provider [phone] Encounter Details Date Type Department Care Team (Late st Contact Info) Description 07/04/2024 Lab Requisition [facility] - Main Lab [address] [place] [address] Jamarcus Bruno MD [address] [place] [phone] Encounter for other general examination Social History [...] Associated Diagnosis Comments BASIC METABOLIC PANEL Routine 07/04/2024 5:53 AM EDT Encounter for other general examination documented in this encounter Results * (ABNORMAL) Basic metabolic panel (07/04/2024 5:53 AM EDT) Sodium 130(L) 133 - 145 mmol/L LAB CHEMISTRY METHOD 07/04/2024 10:32 AM EDT [facility] Potassium 4.9 3.5 - 5.5 mmol/L LAB CHEMISTRY METHOD 07/04/2024 10:32 AM EDT [facility] Chloride 99 96 - 110 mmol/L LAB CHEMISTRY METHOD 07/04/2024 10:32 AM [facility] CO2 19(L) 21 - 32 mmol/L LAB CHEMISTRY METHOD 07/04/2024 10:32 AM [facility] Anion Gap 12(H) 3 - 11 LAB CHEMISTRY METHOD 07/04/2024 10:32 AM [facility] Glucose 77 70 - 100 mg/dL LAB CHEMISTRY METHOD 07/04/2024 10:32 AM [facility] BUN 28(H) 5 - 25 mg/dL LAB CHEMISTRY METHOD 07/04/2024 10:32 AM [facility] Creatinine 0.73 0.70 - 1.30 mg/dL LAB CHEMISTRY METHOD 07/04/2024 10:32 AM [facility] eGFR 97 >=60 mL/min/1. 73m2 LAB CHEMISTRY METHOD 07/04/2024 10:32 AM [facility] Comment:Calculation based on the Chronic Kidney Disease Epidemiology Collaboration (CKD-EPI) equation refit without adjustment for race. BUN/Creatinine Ratio 38.4 LAB CHEMISTRY METHOD 07/04/2024 10:32 AM [facility] Calcium 9.0 8.5 - 10.5 mg/dL LAB CHEMISTRY METHOD 07/04/2024 10:32 AM [facility] Blood Venous blood specimen / Unknown Venipuncture / Unknown 07/04/2024 5:53 AM EDT 07/04/2024 8:55 AM EDT us Jamarcus Bruno MD LAB BLOOD ORDERABLES Final Resu lt [facility] [address] [place] [address], documented in this encounter Visit Diagnoses Diagnosis Encounter for other general examination documented in this encounter Care Teams Steam Train Driver Relationship Specialty Start Date End Date Akira Castaneda DO [address] [place] [phone] PCP - General Internal Medicine 02/06/24 documented as of this encounter
--- OUTSIDE RECORDS SUMMARY | 2024-10-28 13:55 | XMS_ITS | Clinical Summary ---
Author Organization [address] Address [address] [place] [phone] Phone Care Team Providers Care Back Tender Paper Machine Name Role Phone Tonya Akira BRYANT Primary Care Provider [phone] Encounters Date Type Department Care Team Description 10/13/2024 6:31 AM EDT - 10/13/2024 11:59 PM EDT Hospital Encounter Ultrasound [address] [place] [address] Fatty liver Discharge Disposition: Home or Self Care 10/06/2024 9:27 AM EDT - 10/06/2024 11:59 PM EDT Hospital Encounter Ultrasound [address] [place] [address] Bilateral renal masses Discharge Disposition: Home or Self Care 08/05/2024 10:18 AM EDT - 08/05/2024 11:59 PM EDT Hospital Encounter CT Scan [address] [place] [address] Epigastric discomfort Discharge Disposition: Home or Self Care from Last 3 Months Social History Tobacco Use Types Packs/Day Years Used Date Smoking Tobacco: Never Assessed Sex and Gender Information Value Date Recorded Sex Assigned at Not on file Legal Sex Male 11:27 PM EST Gender Identity Not on file Sexual Orientation Not on file Plan of Treatment Health Maintenance Due Date Last Done Comments Pneumococcal Vaccine: 50+ Years (1 of 2 - PCV) 12/13/1971 Zoster Vaccines (1 of 2) 2002 DTaP,Tdap,and Td Vaccines (2 - Td or Tdap) 02/15/2017 02/15/2007 Abdominal Aortic Aneurysm (AAA) Screen 01/22/2022 Colorectal Cancer Screening: Colonoscopy 01/22/2022 Falls Risk Assessment 01/22/2022 Hepatitis C Screening 01/22/2022 Medicare Annual Wellness Visit 01/22/2022 Social Influencers of Health Screening 01/22/2022 Depression Screening 02/20/2024 COVID-19 Vaccine ( season) 2024 02/13/2022, 12/30/2020, 05/24/2020, Additional history exists Influenza [...] Procedure Name Priority Date/Time Associated Diagnosis Comments US ABDOMEN LIMITED Routine 10/13/2024 7: 12 AM EDT Fatty liver US RETROPERITONEAL COMPLETE Routine 10/06/2024 10:06 AM EDT Bilateral renal masses AMYLASE Routine 08/14/2024 8:23 AM EDT Elevated [...] (cerebral vascular accident) (CMS/HCC V24, CMS/HCC V28) LIPID PANEL WITH REFLEX TO DIRECT LDL Routine 07/17/2024 9:32 AM EDT Essential hypertension, malignant 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 This is nonspecific but can be seen with fatty change. No suspicious focal liver lesion. No cholelithiasis or biliary dilation. No significant splenomegaly or ascites. -------- FINAL REPORT -------- Dictated By: Twan Quinones Dictated Date: 10/14/2024 10:43 ET Assigned Physician: Twan Quinones Reviewed and Electronically Signed By: Twan Quinones Signed Date: 10/14/2024 10:49 ET Workstation ID: [id number] Transcribed By: Self Edit Transcribed Date: 10/14/2024 10:43 ET Narrative 10/14/2024 10:49 AM EDT EXAMINATION: ABDOMEN ULTRASOUND, LIMITED CLINICAL INFORMATION: Fatty liver. Report of abdomen CT suggests morphologic changes in the liver suggesting underlying chronic hepatocellular disease. COMPARISON: Selected portions of CT 08/05/24 TECHNIQUE: Ultrasound of the right upper quadrant FINDINGS: QUALITY: Adequate. Habitus and bowel gas limits some of the anatomy. LI - RADS visualization score = Visualization A: No or minimal limitations VACA for visualization scoring: A - Minimal limitations-unlikely to meaningfully affect sensitivity B - Moderate limitations-limitations may obscure small masses C - Severe limitations-limitations significantly lowers sensitivity for focal liver lesions PANCREAS: Portions of the pancreas were obscured. No large abnormality in the expected region of the pancreas. ABDOMINAL AORTA/IVC: Portions of the IVC visualized without a definite abnormality. LIVER: The right lobe of the liver measures 14.5 cm. The liver contour appears smooth. The portal tracts are partially obscured. The liver attenuates sound greater than expected. The background hepatic echogenicity is increased. No suspicious focal liver lesion. Specifically the small low density abnormality in the left lobe on CT is not detected. BILIARY: The gallbladder is fluid-filled. No cholelithiasis, gallbladder wall thickening, pericholecystic fluid or biliary dilation. COMMON BILE DUCT: The common duct measures 0.7 cm which is top normal. GALLBLADDER TENDERNESS: There is no reported tenderness to transducer pressure over the gallbladder. KIDNEYS: Right renal length: 12.6 cm in greatest length Left renal length: Not examined. There is no dilation of the intrarenal collecting system in the right kidney. There is no suspicious focal lesion demonstrated in the right kidney. There are cysts present. The kidneys have been recently evaluated. There is no shadowing calculus demonstrated in the right kidney. SPLEEN: The spleen measures 11.7 cm. No suspicious focal abnormality FLUID: No intraperitoneal fluid demonstrated in the upper abdomen Procedure Note Twan Quinones MD - 10/14/2024 EXAMINATION: ABDOMEN ULTRASOUND, LIMITED CLINICAL INFORMATION: Fatty liver. Report of abdomen CT suggests morphologic changes in theliver suggesting underlying chronic hepatocellular disease. COMPARISON: Selected portions of CT 08/05/24 TECHNIQUE: Ultrasound of the right upper quadrant FINDINGS: QUALITY: Adequate. Habitus and bowel gas limits some of the anatomy. LI - RADS visualization score = Visualization A: No or minimallimitations VACA for visualization scoring: A - Minimal limitations-unlikely to meaningfully affect sensitivity B - Moderate limitations-limitations may obscure small masses C - Severe limitations-limitations significantly lowers sensitivity forfocal liver lesions PANCREAS: Portions of the pancreas were obscured. No large abnormality inthe expected region of the pancreas. ABDOMINAL AORTA/IVC: Portions of the IVC visualized without a definiteabnormality. LIVER: The right lobe of the liver measures 14.5 cm. The liver contourappears smooth. The portal tracts are partially obscured. The liverattenuates sound greater than expected. The background hepaticechogenicity is increased. No suspicious focal liver lesion. Specifically the small low densityabnormality in the left lobe on CT is not detected. BILIARY: The gallbladder is fluid-filled. No cholelithiasis, gallbladderwall thickening, pericholecystic fluid or biliary dilation. COMMON BILE DUCT: The common duct measures 0.7 cm which is top normal. GALLBLADDER TENDERNESS: There is no reported tenderness to transducerpressure over the gallbladder. KIDNEYS: Right renal length: 12.6 cm in greatest length Left renal length: Not examined. There is no dilation of the intrarenal collecting system in the rightkidney. There is no suspicious focal lesion demonstrated in the right kidney.There are cysts present. The kidneys have been recently evaluated. There is no shadowing calculus demonstrated in the right kidney. SPLEEN: The spleen measures 11.7 cm. No suspicious focal abnormality FLUID: No intraperitoneal fluid demonstrated in the upper abdomen IMPRESSION: Echogenic liver. This is nonspecific but can be seen with fatty change. Nosuspicious focal liver lesion. No cholelithiasis or biliary dilation. No significant splenomegaly or ascites. -------- FINAL REPORT -------- Dictated By: Twan Quinones Dictated Date: 10/14/2024 10:43 ET Assigned Physician: Twan Quinones Reviewed and Electronically Signed By: Twan Quinones Signed Date: 10/14/2024 10:49 ET Workstation ID: [id number] Transcribed By: Self Edit Transcribed Date: 10/14/2024 10:43 ET us Akira Mercadante DO IMG US PROCEDURES Final Resul t * US Retroperitoneal Complete (10/06/2024 10:06 AM EDT) Anatomical Region Laterality Modality Body Ultrasound 10/06/2024 10:2 1 AM EDT Impressions 10/06/2024 10:36 AM EDT Impression: Bilateral renal cysts confirmed. No suspicious solid mass identified. Telerad PA ([id number]) -------- FINAL REPORT -------- Dictated By: Ashley Palomares Dictated Date: 10/06/2024 10:21 ET Assigned Physician: Ashley Palomares Reviewed and Electronically Signed By: Ashley Palomares Signed Date: 10/06/2024 10:36 ET Workstation ID: [id number] Transcribed By: Self Edit Transcribed Date: 10/06/2024 10:21 ET Narrative 10/06/2024 10:36 AM EDT History: Bilateral renal masses noted on recent abdominal CT. Comparison: CT abdomen/pelvis 08/05/24 Findings: Real-time imaging of the kidneys was performed. Interstitial is limited due to the intercostal acoustic window available. The right kidney is normal in position and size, measuring 13 cm in length. Multiple circumscribed round anechoic to nearly anechoic masses are seen within the kidney, ranging in size from approximately 1 cm in diameter to 4 cm. These are compatible with simple to minimally complicated cysts. The largest cyst is a parapelvic cyst noted on the CT. No hydronephrosis is identified. The left kidney is normal in position and size, measuring 12.2 cm in length. Two simple cysts are identified, including a 6 cm cyst at the lower pole and a 3 cm cyst at the upper pole. No hydronephrosis is identified. The urinary bladder is empty. Procedure Note Ashley Palomares MD - 10/06/2024 History: Bilateral renal masses noted on recent abdominal CT. Comparison: CT abdomen/pelvis 08/05/24 Findings: Real-time imaging of the kidneys was performed. Interstitial is limiteddue to the intercostal acoustic window available. The right kidney is normal in position and size, measuring 13 cm inlength. Multiple circumscribed round anechoic to nearly anechoic massesare seen within the kidney, ranging in size from approximately 1 cm indiameter to 4 cm. These are compatible with simple to minimallycomplicated cysts. The largest cyst is a parapelvic cyst noted on the CT.No hydronephrosis is identified. The left kidney is normal in position and size, measuring 12.2 cm inlength. Two simple cysts are identified, including a 6 cm cyst at thelower pole and a 3 cm cyst at the upper pole. No hydronephrosis isidentified. The urinary bladder is empty. IMPRESSION: Impression: Bilateral renal cysts confirmed. No suspicious solid mass identified. Telemiya VICENTE ([id number]) -------- FINAL REPORT -------- Dictated By: Ashley Palomares Dictated Date: 10/06/2024 10:21 ET Assigned Physician: Ashley Palomares Reviewed and Electronically Signed By: Ashley Palomares Signed Date: 10/06/2024 10:36 ET Workstation ID: [id number] Transcribed By: Self Edit Transcribed Date: 10/06/2024 10:21 ET us Akira Castaneda DO IMG US PROCEDURES Final Resul t * Lipase (08/14/2024 8:23 AM EDT) Only the most recent of2 resultswithin the time period is included. Lipase 34 13 - 75 unit/L LAB CHEMISTRY METHOD 08/14/2024 11:07 AM EDT [facility] Blood Venous blood specimen / Unknown Venipuncture / Unknown 08/14/2024 8:23 AM EDT 08/14/2024 8:23 AM EDT us Coates Otto [facility] LAB BLOOD ORDERABLES Final Resul t Performing Organization Address City/[facility]/ZIP Co de Phone Number [facility] [address] [place] [address], * Amylase (08/14/2024 8:23 AM EDT) Only the most recent of2 resultswithin the time period is included. Amylase 84 25 - 115 unit/L LAB CHEMISTRY METHOD 08/14/2024 11:07 AM EDT [facility] Blood Venous blood specimen / Unknown Venipuncture / Unknown 08/14/2024 8:23 AM EDT 08/14/2024 8:23 AM EDT us Coates Otto [facility] LAB BLOOD ORDERABLES Final Resul t Performing Organization Address City/[facility]/ZIP Co de Phone Number [facility] [address] [place] [phone], * CT Abdomen Pelvis w Contrast (08/05/2024 10:40 AM EDT) Anatomical Region Laterality Modality Body Computed Tomogra phy 08/05/2024 10:4 1 AM EDT Impressions 08/05/2024 10:47 AM EDT Impression: 1. No acute abdominal process identified. Specifically, no findings of acute pancreatitis are seen. 2. Bilateral renal masses, most likely cysts, for which a follow-up renal ultrasound is recommended. Telemiya VICENTE ([id number]) -------- FINAL REPORT -------- Dictated By: Ashley Palomares Dictated Date: 08/05/2024 10:41 ET Assigned Physician: Ashley Palomares Reviewed and Electronically Signed By: Ashley Palomares Signed Date: 08/05/2024 10:47 ET Workstation ID: [id number] Transcribed By: Self Edit Transcribed Date: 08/05/2024 10:41 ET Narrative 08/05/2024 10:47 AM EDT History: Abdominal pain with elevated serum amylase and lipase. Comparison: No comparison imaging at this institution. Technique: Helical volumetric imaging of the abdomen and pelvis was performed during the uneventful intravenous administration of 90 cc Isovue-370. DLP: 1150.40 mGy/cm AddressReport VCT Iterative reconstruction technique Findings: The hepatic [...] administration of 90 ccIsovue-370. DLP: 1150.40 mGy/cm AgileSourceT Iterative reconstruction technique Findings: The hepatic configuration [...] which a follow-up renalultrasound is recommended. Telerad [place] ([id number]) -------- FINAL REPORT -------- Dictated By: Ashley Palomares Dictated Date: 08/05/2024 10:41 ET Assigned Physician: Ashley Palomares Reviewed and Electronically Signed By: Ashley Palomares Signed Date: 08/05/2024 10:47 ET Workstation ID: [id number] Transcribed By: Self Edit Transcribed Date: 08/05/2024 10:41 ET Akira Castaneda DO IMG CT PROCEDURES Final Resul t * Bilirubin duplicate procedure to order (08/01/2024 10:13 AM EDT) Total Bilirubin 0.5 0.0 - 1.4 mg/dL LAB CHEMISTRY METHOD 08/01/2024 11:34 AM EDT [facility] Bilirubin, Direct 0.2 0.0 - 0.3 mg/dL LAB CHEMISTRY METHOD 08/01/2024 11:34 AM EDT [facility] Bilirubin, Indirect 0.3 0.0 - 1.1 mg/dL LAB CHEMISTRY METHOD 08/01/2024 11:34 AM EDT [facility] Blood Venous blood specimen / Unknown Venipuncture / Unknown 08/01/2024 10:13 AM EDT 08/01/2024 10:13 AM EDT us Coates Otto [facility] LAB BLOOD ORDERABLES Final Resul t [facility] [address] [place] [address], * (ABNORMAL) CBC auto differential (08/01/2024 10:13 AM EDT) WBC 6.0 4.8 - 10.8 K/mcL LAB HEMETOLOGY METHOD 08/01/2024 11:02 AM EDT [facility] RBC 4.50 4.50 - 5.50 M/mcL LAB HEMETOLOGY METHOD 08/01/2024 11:02 AM [facility] Hemoglobin 13.7 13.5 - 17.5 g/dL LAB HEMETOLOGY METHOD 08/01/2024 11:02 AM [facility] Hematocrit 41.0(L) 42.0 - 54.0 % LAB HEMETOLOGY METHOD 08/01/2024 11:02 AM [facility] MCV 91.1 79.0 - 98.0 FL LAB HEMETOLOGY METHOD 08/01/2024 11:02 AM [facility] MCH 30.4 27.0 - 32.0 pcg LAB HEMETOLOGY METHOD 08/01/2024 11:02 AM [facility] MCHC 33.4 32.0 - 37.0 g/dL LAB HEMETOLOGY METHOD 08/01/2024 11:02 AM [facility] RDW 12.5 11.0 - 15.0 % LAB HEMETOLOGY METHOD 08/01/2024 11:02 AM [facility] Platelets 185 130 - 400 K/mcL LAB HEMETOLOGY METHOD 08/01/2024 11:02 AM [facility] MPV 9.3 7.0 - 11.0 FL LAB HEMETOLOGY METHOD 08/01/2024 11:02 AM [facility] NRBC 0.0 <1.0 % LAB HEMETOLOGY METHOD 08/01/2024 11:02 AM [facility] NRBC Absolute 0.00 <0.10 K/mcL LAB HEMETOLOGY METHOD 08/01/2024 11:02 AM [facility] Neutrophils Relative 63.5 % LAB HEMETOLOGY METHOD 08/01/2024 11:02 AM [facility] Lymphocytes Relative 22.4 % LAB HEMETOLOGY METHOD 08/01/2024 11:02 AM [facility] Monocytes Relative 6.8 % LAB HEMETOLOGY METHOD 08/01/2024 11:02 AM [facility] Eosinophils Relative 6.2 % LAB HEMETOLOGY METHOD 08/01/2024 11:02 AM [facility] Basophils Relative 0.8 % LAB HEMETOLOGY METHOD 08/01/2024 11:02 AM [facility] Immature Granulocytes Relative 0.3 % LAB HEMETOLOGY METHOD 08/01/2024 11:02 AM [facility] Neutrophils Absolute 3.80 1.50 - 7.00 K/mcL LAB HEMETOLOGY METHOD 08/01/2024 11:02 AM [facility] Lymphocytes Absolute 1.34 1.00 - 5.00 K/mcL LAB HEMETOLOGY METHOD 08/01/2024 11:02 AM [facility] Monocytes Absolute 0.41 0.20 - 1.00 K/mcL LAB HEMETOLOGY METHOD 08/01/2024 11:02 AM [facility] Eosinophils Absolute 0.37 0.00 - 0.50 K/mcL LAB HEMETOLOGY METHOD 08/01/2024 11:02 AM [facility] Basophils Absolute 0.05 0.00 - 0.20 K/mcL LAB HEMETOLOGY METHOD 08/01/2024 11:02 AM [facility] Immature Granulocytes Absolute 0.02 0.00 - 0.03 K/mcL LAB HEMETOLOGY METHOD 08/01/2024 11:02 AM [facility] Blood Venous blood specimen / Unknown Venipuncture / Unknown 08/01/2024 10:13 AM EDT 08/01/2024 10:13 AM EDT us Coates Otto [facility] LAB BLOOD ORDERABLES Final Resul t Performing Organization Address City/[facility]/ZIP Co de Phone Number [facility] [address] [place] [address], * (ABNORMAL) Sedimentation rate (08/01/2024 10:13 AM EDT) Sed Rate 21(H) 0 - 20 mm/hr LAB HEMETOLOGY METHOD 08/01/2024 11:09 AM EDT [facility] Blood Venous blood specimen / Unknown Venipuncture / Unknown 08/01/2024 10:13 AM EDT 08/01/2024 10:13 AM EDT Aminata [facility] LAB BLOOD ORDERABLES Final Resul t Performing Organization Address [facility] de Phone Number [facility] [address] [place] [address], * C-reactive protein (08/01/2024 10:13 AM EDT) Pathologist [facility] C-Reactive Protein <0.29 <=0.50 mg/dL LAB CHEMISTRY METHOD 08/01/2024 11:31 AM EDT [facility] Blood Venous blood specimen / Unknown Venipuncture / Unknown 08/01/2024 10:13 AM EDT 08/01/2024 10:13 AM EDT Coates [facility] LAB BLOOD ORDERABLES Final Resul t Performing Organization Address City/[facility]/ZIP Co de Phone Number [facility] [address] [place] [address], * Comprehensive metabolic panel (08/01/2024 10:13 AM EDT) Sodium 138 133 - 145 mmol/L LAB CHEMISTRY METHOD 08/01/2024 11:34 AM EDT [facility] Potassium 3.9 3.5 - 5.5 mmol/L LAB CHEMISTRY METHOD 08/01/2024 11:34 AM [facility] Chloride 105 96 - 110 mmol/L LAB CHEMISTRY METHOD 08/01/2024 11:34 AM [facility] CO2 24 21 - 32 mmol/L LAB CHEMISTRY METHOD 08/01/2024 11:34 AM [facility] Anion Gap 9 3 - 11 LAB CHEMISTRY METHOD 08/01/2024 11:34 AM [facility] Glucose 95 70 - 100 mg/dL LAB CHEMISTRY METHOD 08/01/2024 11:34 AM [facility] BUN 11 5 - 25 mg/dL LAB CHEMISTRY METHOD 08/01/2024 11:34 AM [facility] Creatinine 0.77 0.70 - 1.30 mg/dL LAB CHEMISTRY METHOD 08/01/2024 11:34 AM [facility] eGFR 96 >=60 mL/min/1. 73m2 LAB CHEMISTRY METHOD 08/01/2024 11:34 AM [facility] Comment:Calculation based on the Chronic Kidney Disease Epidemiology Collaboration (CKD-EPI) equation refit without adjustment for race. BUN/Creatinine Ratio 14.3 LAB CHEMISTRY METHOD 08/01/2024 11:34 AM [facility] Calcium 8.6 8.5 - 10.5 mg/dL LAB CHEMISTRY METHOD 08/01/2024 11:34 AM [facility] AST (SGOT) 15 10 - 42 unit/L LAB CHEMISTRY METHOD 08/01/2024 11:34 AM [facility] ALT (SGPT) 31 10 - 60 unit/L LAB CHEMISTRY METHOD 08/01/2024 11:34 AM [facility] Alkaline Phosphatase 53 42 - 121 unit/L LAB CHEMISTRY METHOD 08/01/2024 11:34 AM [facility] Total Protein 7.1 6.0 - 8.0 g/dL LAB CHEMISTRY METHOD 08/01/2024 11:34 AM EDT [facility] Albumin 3.8 3.2 - 5.0 g/dL LAB CHEMISTRY METHOD 08/01/2024 11:34 AM [facility] Total Bilirubin 0.5 0.0 - 1.4 mg/dL LAB CHEMISTRY METHOD 08/01/2024 11:34 AM [facility] Blood Venous blood specimen / Unknown Venipuncture / Unknown 08/01/2024 10:13 AM EDT 08/01/2024 10:13 AM EDT us Coates Otto [facility] LAB BLOOD ORDERABLES Final Resul t [facility] [address] [place] [address], [place] [phone] * (ABNORMAL) Lipid panel with reflex to direct LDL (07/17/2024 9:32 AM EDT) Cholesterol 165 0 - 200 mg/dL LAB CHEMISTRY METHOD 07/17/2024 12:09 PM [facility] Triglycerides 266(H) 0 - 150 mg/dL LAB CHEMISTRY METHOD 07/17/2024 12:09 PM [facility] HDL 49 >=40 mg/dL LAB CHEMISTRY METHOD 07/17/2024 12:09 PM [facility] LDL Calculated 63 0 - 100 mg/dL LAB CHEMISTRY METHOD 07/17/2024 12:09 PM [facility] VLDL Cholesterol Jordi 53.2 mg/dL LAB CHEMISTRY METHOD 07/17/2024 12:09 PM [facility] Non HDL Chol. (LDL+VLDL) 116 <145 mg/dL LAB CHEMISTRY METHOD 07/17/2024 12:09 PM [facility] Chol/HDL Ratio 3.4 0.0 - 4.4 LAB CHEMISTRY METHOD 07/17/2024 12:09 PM EDT [facility] Blood Venous blood specimen / Unknown Venipuncture / Unknown 07/17/2024 9:32 AM EDT 07/17/2024 9:32 AM EDT us Neva Martinez [facility] LAB BLOOD ORDERABLES Fi nal Result [facility] ([facility] [address] [place] [address], from Last 3 Months or Most Recently Relevant to Health Maintenance Insurance [employer] Care Teams Back Tender Paper Machine Relationship Specialty Start Date End Date Akira Castaneda DO [address] [place] [phone] PCP - General Internal Medicine 02/06/24
--- OUTSIDE RECORDS SUMMARY | 2024-10-28 13:55 | XMS_ITS | Encounter Summary ---
Author Organization [facility] Address [address] [place] [address] Care Team Providers Care Medical Management Trainer Name Role Phone Akira Castaneda DO Primary Care Provider [phone] Encounter Details Date Type Department Care Team (Late st Contact Info) Description 07/03/2024 Lab Requisition [facility] - Main Lab [address] [place] [address] Jamarcus Bruno MD [address] [place] [address] Encounter for other general examination Social History [...] Procedure Name Priority Date/Time Associated Diagnosis Comments MAGNESIUM Routine 07/03/2024 4:53 AM EDT Encounter for other general examination BASIC METABOLIC PANEL Routine 07/03/2024 4:53 AM EDT Encounter for other general examination documented in this encounter Results * Magnesium (07/03/2024 4:53 AM EDT) Magnesium 2.2 1.9 - 2.6 mg/dL LAB CHEMISTRY METHOD 07/03/2024 8:18 AM EDT [facility] ([facility]) [facility] Blood Venous blood specimen / Unknown Venipuncture / Unknown 07/03/2024 4:53 AM EDT 07/03/2024 7:48 AM EDT us Jamarcus Bruno MD LAB BLOOD ORDERABLES Final Resu lt [facility] [address] [place] [address], [place] [phone] * (ABNORMAL) Basic metabolic panel (07/03/2024 4:53 AM EDT) Sodium 128(L) 133 - 145 mmol/L LAB CHEMISTRY METHOD 07/03/2024 8:[address] [facility] Potassium 4.6 3.5 - 5.5 mmol/L LAB CHEMISTRY METHOD 07/03/2024 8:[address] [facility] Chloride 96 96 - 110 mmol/L LAB CHEMISTRY METHOD 07/03/2024 8:[address] [facility] CO2 24 21 - 32 mmol/L LAB CHEMISTRY METHOD 07/03/2024 8:[address] [facility] Anion Gap 8 3 - 11 LAB CHEMISTRY METHOD 07/03/2024 8:[address] [facility] Glucose 107(H) 70 - 100 mg/dL LAB CHEMISTRY METHOD 07/03/2024 8:[address] [facility] BUN 33(H) 5 - 25 mg/dL LAB CHEMISTRY METHOD 07/03/2024 8:[address] [facility] LAB Comment:Results verified by repeat testing Creatinine 0.79 0.70 - 1.30 mg/dL LAB CHEMISTRY METHOD 07/03/2024 8:[address] [facility] eGFR 95 >=60 mL/min/1. 73m2 LAB CHEMISTRY METHOD 07/03/2024 8:[address] [facility] Comment:Calculation based on the Chronic Kidney Disease Epidemiology Collaboration (CKD-EPI) equation refit without adjustment for race. BUN/Creatinine Ratio 41.8 LAB CHEMISTRY METHOD 07/03/2024 8:41 AM EDT [facility] Calcium 9.2 8.5 - 10.5 mg/dL LAB CHEMISTRY METHOD 07/03/2024 8:41 AM EDT [facility] Blood Venous blood specimen / Unknown Venipuncture / Unknown 07/03/2024 4:53 AM EDT 07/03/2024 7:48 AM EDT us Jamarcus Bruno MD LAB BLOOD ORDERABLES Final Resu lt [facility] [address] [place] [address], [place] [phone] documented in this encounter Visit Diagnoses Diagnosis Encounter for other general examination documented in this encounter Care Teams Medical Management Trainer Relationship Specialty Start Date End Date Akira Castaneda DO [address] [place] [phone] PCP - General Internal Medicine 02/06/24 documented as of this encounter
--- OUTSIDE RECORDS SUMMARY | 2024-10-28 13:55 | XMS_ITS | Encounter Summary ---
Author Organization [facility] Address [address] [place] [address] Care Team Providers Care Reproduction Specialist Name Role Phone Akira Castaneda DO Primary Care Provider [phone] Encounter Details Date Type Department Care Team (Late st Contact Info) Description 07/07/2024 Lab Requisition [facility] - Main Lab [address] [place] [address] Jamarcus Bruno MD [address] [place] [address] Encounter for other general examination Social History [...] Associated Diagnosis Comments BASIC METABOLIC PANEL Routine 07/07/2024 5:08 AM EDT Encounter for other general examination documented in this encounter Results * (ABNORMAL) Basic metabolic panel (07/07/2024 5:08 AM EDT) Sodium 134 133 - 145 mmol/L LAB CHEMISTRY METHOD 07/07/2024 11:55 AM EDT [facility] Potassium 4.3 3.5 - 5.5 mmol/L LAB CHEMISTRY METHOD 07/07/2024 11:55 AM EDT [facility] Chloride 99 96 - 110 mmol/L LAB CHEMISTRY METHOD 07/07/2024 11:55 AM [facility] CO2 23 21 - 32 mmol/L LAB CHEMISTRY METHOD 07/07/2024 11:55 AM [facility] Anion Gap 12(H) 3 - 11 LAB CHEMISTRY METHOD 07/07/2024 11:55 AM [facility] Glucose 89 70 - 100 mg/dL LAB CHEMISTRY METHOD 07/07/2024 11:55 AM [facility] BUN 30(H) 5 - 25 mg/dL LAB CHEMISTRY METHOD 07/07/2024 11:55 AM [facility] Creatinine 0.84 0.70 - 1.30 mg/dL LAB CHEMISTRY METHOD 07/07/2024 11:55 AM [facility] eGFR 93 >=60 mL/min/1. 73m2 LAB CHEMISTRY METHOD 07/07/2024 11:55 AM [facility] LAB Comment:Calculation based on the Chronic Kidney Disease Epidemiology Collaboration (CKD-EPI) equation refit without adjustment for race. BUN/Creatinine Ratio 35.7 LAB CHEMISTRY METHOD 07/07/2024 11:55 AM [facility] Calcium 9.4 8.5 - 10.5 mg/dL LAB CHEMISTRY METHOD 07/07/2024 11:55 AM [facility] Blood Venous blood specimen / Unknown Venipuncture / Unknown 07/07/2024 5:08 AM EDT 07/07/2024 10:02 AM EDT us Jamarcus Bruno MD LAB BLOOD ORDERABLES Final Resu lt [facility] [address] [place] [address], documented in this encounter Visit Diagnoses Diagnosis Encounter for other general examination documented in this encounter Care Teams Reproduction Specialist Relationship Specialty Start Date End Date Akira Castaneda DO [address] [place] [phone] PCP - General Internal Medicine 02/06/24 documented as of this encounter
--- OUTSIDE RECORDS SUMMARY | 2024-10-28 13:55 | XMS_ITS | Encounter Summary ---
Author Organization [facility] Address [address] [place] [address] Care Team Providers Care Forest Examiner Name Role Phone Akira Castaneda DO Primary Care Provider [phone] Encounter Details Date Type Department Care Team (Late st Contact Info) Description 07/01/2024 Lab Requisition [facility] - Main Lab [address] [place] [address] Jamarcus Bruno MD [address] [place] [address] Encounter for other general examination Social History [...] Associated Diagnosis Comments BASIC METABOLIC PANEL Routine 07/01/2024 6:45 AM EDT Encounter for other general examination documented in this encounter Results * (ABNORMAL) Basic metabolic panel (07/01/2024 6:45 AM EDT) Sodium 130(L) 133 - 145 mmol/L LAB CHEMISTRY METHOD 07/01/2024 11:22 AM EDT [facility] Potassium 4.3 3.5 - 5.5 mmol/L LAB CHEMISTRY METHOD 07/01/2024 11:22 AM EDT [facility] Chloride 96 96 - 110 mmol/L LAB CHEMISTRY METHOD 07/01/2024 11:[address] [facility] CO2 23 21 - 32 mmol/L LAB CHEMISTRY METHOD 07/01/2024 11:[address] [facility] Anion Gap 11 3 - 11 LAB CHEMISTRY METHOD 07/01/2024 11:[address] [facility] Glucose 99 70 - 100 mg/dL LAB CHEMISTRY METHOD 07/01/2024 11:[address] [facility] BUN 18 5 - 25 mg/dL LAB CHEMISTRY METHOD 07/01/2024 11:[address] [facility] Creatinine 0.59(L) 0.70 - 1.30 mg/dL LAB CHEMISTRY METHOD 07/01/2024 11:[address] [facility] eGFR 104 >=60 mL/min/1. 73m2 LAB CHEMISTRY METHOD 07/01/2024 11:[address] [facility] Comment:Calculation based on the Chronic Kidney Disease Epidemiology Collaboration (CKD-EPI) equation refit without adjustment for race. BUN/Creatinine Ratio 30.5 LAB CHEMISTRY METHOD 07/01/2024 11:[address] [facility] Calcium 8.3(L) 8.5 - 10.5 mg/dL LAB CHEMISTRY METHOD 07/01/2024 11:[address] [facility] Blood Venous blood specimen / Unknown Venipuncture / Unknown 07/01/2024 6:45 AM EDT 07/01/2024 9:38 AM EDT us Jamarcus Bruno MD LAB BLOOD ORDERABLES Final Resu lt [facility] [address] [place] [address], documented in this encounter Visit Diagnoses Diagnosis Encounter for other general examination documented in this encounter Care Teams Forest Examiner Relationship Specialty Start Date End Date Akira Castaneda DO [address] [place] [phone] PCP - General Internal Medicine 02/06/24 documented as of this encounter
--- OUTSIDE RECORDS SUMMARY | 2024-10-28 13:55 | XMS_ITS | Encounter Summary ---
Author Organization [facility] Address [address] [place] [address] Care Team Providers Care Design Director Name Role Phone DollyAkira moore Primary Care Provider [phone] Encounter Details Date Type Department Care Team (Late st Contact Info) Description 06/30/2024 Lab Requisition [facility] - Main Lab [address] [facility] [place] [address] Jamarcus Bruno MD [address] [place] [address] Encounter for other general examination Social History [...] Procedure Name Priority Date/Time Associated Diagnosis Comments CBC WITH AUTO DIFFERENTIAL Routine 06/30/2024 5:37 AM EDT Encounter for other general examination CBC AND DIFFERENTIAL Routine 06/30/2024 5:37 AM EDT Encounter for other general examination MAGNESIUM Routine 06/30/2024 5:37 AM EDT Encounter for other general examination COMPREHENSIVE METABOLIC PANEL Routine 06/30/2024 5:37 AM EDT Encounter for other general examination documented in this encounter Results * (ABNORMAL) CBC auto differential (06/30/2024 5:37 AM EDT) [facility] WBC 10.0 4.8 - 10.8 K/mcL LAB HEMETOLOGY METHOD 06/30/2024 12:15 PM EDT [facility] RBC 4.50 4.50 - 5.50 M/mcL LAB HEMETOLOGY METHOD 06/30/2024 12:15 PM EDT [facility] Hemoglobin 13.9 13.5 - 17.5 g/dL LAB HEMETOLOGY METHOD 06/30/2024 12:15 PM EDT [facility] Hematocrit 41.0(L) 42.0 - 54.0 % LAB HEMETOLOGY METHOD 06/30/2024 12:15 PM EDT [facility] MCV 91.7 79.0 - 98.0 FL LAB [facility] MCH 31.1 27.0 - 32.0 pcg LAB HEMETOLOGY METHOD 06/30/2024 12:15 PM EDT [facility] MCHC 33.9 32.0 - 37.0 g/dL LAB HEMETOLOGY METHOD 06/30/2024 12:15 PM EDT [facility] RDW 11.8 11.0 - 15.0 % LAB HEMETOLOGY METHOD 06/30/2024 12:15 PM EDT [facility] Platelets 271 130 - 400 K/mcL LAB HEMETOLOGY METHOD 06/30/2024 12:15 PM EDT [facility] MPV 9.3 7.0 - 11.0 FL LAB HEMETOLOGY METHOD 06/30/2024 12:15 PM EDT [facility] NRBC 0.0 <1.0 % LAB HEMETOLOGY METHOD 06/30/2024 12:15 PM EDT [facility] NRBC Absolute 0.00 <0.10 K/mcL LAB [facility]OLOGY [facility]/30[facility]2024 [facility] Neutrophils Relative 68.1 % LAB HEMETOLOGY METHOD 06/30/2024 12:15 PM [facility] Lymphocytes Relative 15.4 % LAB HEMETOLOGY METHOD 06/30/2024 12:15 PM [facility] Monocytes Relative 9.7 % LAB HEMETOLOGY METHOD 06/30/2024 12:15 PM [facility] Eosinophils Relative 5.5 % LAB HEMETOLOGY METHOD 06/30/2024 12:15 PM [facility] Basophils Relative 0.8 % LAB HEMETOLOGY METHOD 06/30/2024 12:15 PM [facility] Immature Granulocytes Relative 0.5 % LAB HEMETOLOGY METHOD 06/30/2024 12:15 PM [facility] Neutrophils Absolute 6.78 1.50 - 7.00 K/mcL LAB HEMETOLOGY METHOD 06/30/2024 12:15 PM [facility] Lymphocytes Absolute 1.53 1.00 - 5.00 K/mcL LAB HEMETOLOGY METHOD 06/30/2024 12:15 PM [facility] Monocytes Absolute 0.97 0.20 - 1.00 K/mcL LAB HEMETOLOGY METHOD 06/30/2024 12:15 PM [facility] Eosinophils Absolute 0.55(H) 0.00 - 0.50 K/mcL LAB HEMETOLOGY METHOD 06/30/2024 12:15 PM [facility] Basophils Absolute 0.08 0.00 - 0.20 K/mcL LAB HEMETOLOGY METHOD 06/30/2024 12:15 PM [facility] Immature Granulocytes Absolute 0.05(H) 0.00 - 0.03 K/mcL LAB HEMETOLOGY METHOD 06/30/2024 12:15 PM [facility] Blood Venous blood specimen / Unknown Venipuncture / Unknown 06/30/2024 5:37 AM EDT 06/30/2024 10:16 AM EDT us Jamarcus Bruno MD LAB BLOOD ORDERABLES Final Resu lt Performing Organization Address [facility]/ZIP Co de Phone Number [facility] [address] [place] [address], [place] [phone] * Magnesium (06/30/2024 5:37 AM EDT) Pathologist [facility] Magnesium 2.2 1.9 - 2.6 mg/dL LAB CHEMISTRY METHOD 06/30/2024 1:35 PM EDT [facility] Blood Venous blood specimen / Unknown Venipuncture / Unknown 06/30/2024 5:37 AM EDT 06/30/2024 10:16 AM EDT us Jamarcus Bruno MD LAB BLOOD ORDERABLES Final Resu lt Performing Organization Address [facility]/ZIP Co de Phone Number [facility] [address] [place] [address], [place] [phone] * (ABNORMAL) Comprehensive metabolic panel (06/30/2024 5:37 AM EDT) Sodium 127(L) 133 - 145 mmol/L LAB CHEMISTRY METHOD 06/30/2024 2:11 PM EDT [facility] Potassium 4.0 3.5 - 5.5 mmol/L LAB CHEMISTRY METHOD 06/30/2024 2:11 PM EDT [facility] Chloride 93(L) 96 - 110 mmol/L LAB CHEMISTRY METHOD 06/30/2024 2:11 PM EDT [facility] CO2 20(L) 21 - 32 mmol/L LAB CHEMISTRY METHOD 06/30/2024 2:11 PM EDT [facility] Anion Gap 14(H) 3 - 11 LAB CHEMISTRY METHOD 06/30/2024 2:11 PM [facility] Glucose 102(H) 70 - 100 mg/dL LAB CHEMISTRY METHOD 06/30/2024 2:11 PM [facility] BUN 19 5 - 25 mg/dL LAB CHEMISTRY METHOD 06/30/2024 2:11 PM [facility] Creatinine 0.69(L) 0.70 - 1.30 mg/dL LAB CHEMISTRY METHOD 06/30/2024 2:11 PM [facility] eGFR 99 >=60 mL/min/1. 73m2 LAB CHEMISTRY METHOD 06/30/2024 2:11 PM [facility] Comment:Calculation based on the Chronic Kidney Disease Epidemiology Collaboration (CKD-EPI) equation refit without adjustment for race. BUN/Creatinine Ratio 27.5 LAB CHEMISTRY METHOD 06/30/2024 2:11 PM [facility] Calcium 8.7 8.5 - 10.5 mg/dL LAB CHEMISTRY METHOD 06/30/2024 2:11 PM [facility] AST (SGOT) 34 10 - 42 unit/L LAB CHEMISTRY METHOD 06/30/2024 2:11 PM [facility] ALT (SGPT) 86(H) 10 - 60 unit/L LAB CHEMISTRY METHOD 06/30/2024 2:11 PM [facility] Comment:Results verified by repeat testing Alkaline Phosphatase 63 42 - 121 unit/L LAB CHEMISTRY METHOD 06/30/2024 2:11 PM [facility] Total Protein 6.9 6.0 - 8.0 g/dL LAB CHEMISTRY METHOD 06/30/2024 2:11 PM [facility] Albumin 3.1(L) 3.2 - 5.0 g/dL LAB CHEMISTRY METHOD 06/30/2024 2:11 PM [facility] Total Bilirubin 0.6 0.0 - 1.4 mg/dL LAB CHEMISTRY METHOD 06/30/2024 2:11 PM EDT [facility] Blood Venous blood specimen / Unknown Venipuncture / Unknown 06/30/2024 5:37 AM EDT 06/30/2024 10:16 AM EDT us Jamarcus Bruno MD LAB BLOOD ORDERABLES Final Resu lt [facility] [address] [place] [address], documented in this encounter Visit Diagnoses Diagnosis Encounter for other general examination documented in this encounter Care Teams Design Director Relationship Specialty Start Date End Date Akira Castaneda DO [address] [place] [phone] PCP - General Internal Medicine 02/06/24 documented as of this encounter
== END 2024-10-28 11:27 | disposition home or self-care (01) ==
LOC: HO.LAB 11:26
PROVIDERS: PCP Internal Medicine; Referring Provider Internal Medicine
DX: E78.5 Hyperlipidemia, unspecified (principal)
CPT/HCPCS: 36415; 80048

== ENCOUNTER → 2024-11-18 23:59 | Outpatient (BNV) | payer MEDICARE, SELFPAY | PROVIDERS: PCP Internal Medicine; Visit Provider Internal Medicine Cardiovascular Disease | DX: I25.10 Atherosclerotic heart disease of native coronary artery without angina pectoris (principal) | CPT/HCPCS: 93458; 99152 ==

== ENCOUNTER 2024-12-30 10:18 | Outpatient (AMB) | payer MEDICARE, SELFPAY ==
--- NOTE | 2024-12-30 10:40 | A.OFFVIS_ITS ---
Vital Signs 12/30/24 10:44 Height 5 ft 7 in Weight 193 lb 1.999 oz BMI 30.2 BP 142/62 H Blood Pressure Location Lt brachial Position Sitting Pulse 81 Pulse Source Monitor Intake Visit Reasons: Follow up- [facility] Triple Bypass Front End Software Developer Required: No Accompanied by: Spouse Allergies No Known Allergies Allergy (Verified 09/30/24 10:22) Medication List - Last Reconciled 12/30/24 by Esdras Johnson MD acetaminophen 650 mg PO Q4H PRN allopurinol 100 mg PO QAM amiodarone 200 mg PO BID amlodipine 10 mg PO QAM aspirin (Adult Aspirin Regimen) 81 mg PO QAM famotidine 40 mg PO BEDTIME fluticasone propionate 50 mcg/actuation 2 sprays intranasal BID metoprolol tartrate 25 mg PO BID rosuvastatin 20 mg PO QAM HPI Comments Details: Hari returns for follow-up. He was recently seen in consultation regarding preoperative risk stratification for carotid surgery. He underwent workup with a coronary CTA followed by diagnostic catheterization showing multivessel disease. Then underwent combined CABG/right carotid endarterectomy and he was then discharged home. To recall, he has got a history of many comorbidities including hypertension, dyslipidemia. In june 2024, presented to [facility] with ataxia and altered mental status. CTA had shown acute left thalamic hematoma and there was also concern for subarachnoid hemorrhage. There was occlusion of distal left carotid artery which was thought to be chronic and there was also severe stenosis in the right cervical internal carotid. Diagnosis also included hypertensive emergency. No overt cardiac symptoms. [facility] Medical History (Updated 12/30/24 @ 10:56 by Esdras Johnson MD) Atherosclerotic cardiovascular disease Gout Arthritis GERD (gastroesophageal reflux disease) Fatty liver Renal cyst Sleep apnea Intracranial hemorrhage Hyperlipidemia, unspecified Essential hypertension Surgical History (Updated 12/30/24 @ 11:05 by Esdras Johnson MD) Status post aorto-coronary artery bypass graft H/O colonoscopy History of surgery on lower extremity Hx of left inguinal hernia repair Family History Father Stroke Brother Heart attack Social History Are you a primary child day care teacher to a significant other at home: No Do you presently have visiting nurse or other home services: No Comment: advised of trip hazard Patient Tobacco Use Status: Never used Tobacco Review of Systems Const Denies chills, Denies fatigue, Denies fever(s), Denies frequent falls, Denies weakness, Denies weight gain and Denies weight loss ENT Denies dizziness Card Denies chest pain, Denies leg edema, Denies lightheadedness, Denies palpitations, Denies dyspnea and Denies dyspnea on exertion Resp Denies cough, Denies dyspnea and Denies dyspnea on exertion GI Denies hematochezia Musc Denies abnormal gait, Denies muscle weakness, Denies numbness, Denies radiating pain into limb and Denies tingling Neuro Denies abnormal gait, Denies dizziness, Denies frequent falls, Denies numbness, Denies tingling and Denies weakness Endo Denies fatigue and Denies palpitations Physical Exam Vital Signs: Last Vital Signs Pulse 81 12/30/24 10:44 BP 142/62 H 12/30/24 10:44 BMI result Body Mass Index 30.2 Const General: comfortable and no acute distress Orientation/consciousness: patient oriented x3 HEENT Other: Unremarkable Head: Yes normal to inspection Neck Neck: Yes normal visual inspection Chest Chest palpation & inspection: normal inspection of the chest Resp Auscultation: clear to auscultation bilaterally Cardio Palpation: normal PMI Heart sounds: S1 normal heart sound present, S2 normal heart sound present, no gallops, no murmurs and no rubs GI Palpation (GI): Soft to palpation Back/Spine/Pelvis Other: unremarkable Skin General skin exam: no rashes or lesions noted Neuro General: patient oriented x3 Extrem General: Yes normal to inspection Psych Mental Status: mental status grossly normal Office Procedures EKG Details: EKG with sinus rhythm at 81/Min; leftward axis; left ventricular hypertrophy; nonspecific ST-T changes; normal OR; QT is difficult to calculate because of baseline nonspecific ST-T changes as well as artifact. [id number], Complete Assessment & Plan Assessment & Plan (1) Atherosclerotic cardiovascular disease: Code(s): I25.10 - Atherosclerotic heart disease of [place] coronary artery without angina pectoris Category: Medical Plan: Status post CABG. He is recovering well. Initial management per cardiac surgery recommendations. He can start cardiac rehabilitation. (2) Status post aorto-coronary artery bypass graft: Code(s): Z95.1 - Presence of aortocoronary bypass graft Category: Surgical Plan: As above. Recovering well. (3) Bilateral carotid artery stenosis: Code(s): I65.23 - Occlusion and stenosis of bilateral carotid arteries Category: Medical Plan: Status post right carotid endarterectomy. Occluded left carotid. (4) Essential hypertension: Code(s): I10 - Essential (primary) hypertension Category: Medical Plan: In the past, he had taken lisinopril and hydralazine but not in his list anymore. Only on amlodipine. We can restart lisinopril at a lower dose of 20 mg daily. Check BMP in a few days. Home blood pressure checks. With intracranial bleed as well as CABG/CEA history, recommend strict blood pressure control. Target blood pressure to be as close to 120/80 mmHg as feasible. (5) Hyperlipidemia, unspecified: Code(s): E78.5 - Hyperlipidemia, unspecified Category: Medical Plan: On statins. LDL at [facility] 49 mg/dL. Triglycerides elevated at 236 mg mg/dL. We will need to recheck in due course. (6) Intracranial hemorrhage: Comment: stroke-06/2024-resultant double vision-occ. memory loss Code(s): I62.9 - Nontraumatic intracranial hemorrhage, unspecified Category: Medical Plan: Seems mostly recovered but still has vision issues as well as some gait issues. Plan Discussion Notes During the visit, we discussed the patient's post-surgical recovery and the importance of medication adherence, particularly with the temporary use of amiodarone and the reintroduction of lisinopril at a lower dose. We also reviewed the need for close monitoring of blood pressure and energy levels to ensure optimal recovery. Patient was informed and verbally consented to the use of an ambient scribe for clinic note documentation during this visit. Orders: Orders Cardiac Rehab Today Z95.1 - Presence of aortocoronary bypass graft Basic Metabolic Panel 2 Weeks I25.10 - Atherosclerotic heart disease of [place] coronary artery without angina pectoris Medications: New lisinopril 20 mg PO DAILY 30 tabs 3RF Patient Instructions: - Take baby aspirin daily as prescribed. - Continue amiodarone for the first month, then discontinue. - Restart lisinopril at 20 mg once daily and monitor blood pressure regularly. - Report any unusual symptoms to the healthcare provider. - Schedule follow-up appointment. Coding Level of Care Code Est Pt Level 4 (81277) Complex EM visit Add On G2211 Diagnoses Atherosclerotic cardiovascular disease I25.10 Status post aorto-coronary artery bypass graft Z95.1 Bilateral carotid artery stenosis I65.23 Essential hypertension I10 Hyperlipidemia, unspecified E78.5 Intracranial hemorrhage I62.9 CPT Codes EKG - CPT: 14002-Bawuhocapponaepkw, Complete ([id number])
[2024-12-30 10:44] VITALS: BP 142/62; PULSE 81; BMI 30.2
--- OUTSIDE RECORDS SUMMARY | 2024-12-30 11:50 | XMS_ITS | Encounter Summary ---
Author Organization [facility] Address [address] [place] [address] Care Team Providers Care Corporate Strategist Name Role Phone Akira Castaneda DO Primary Care Provider [phone] Encounter Details Date Type Department Care Team (Late st Contact Info) Description 07/10/2024 Lab Requisition [facility] - Main Lab [address] [place] [address] Jamarcus Bruno MD [address] [place] [address] Encounter for other general examination Social History [...] LAB CHEMISTRY METHOD 07/10/2024 7:57 AM EDT [facility] Potassium 4.6 3.5 - 5.5 mmol/L LAB CHEMISTRY METHOD 07/10/2024 7:57 AM EDT [facility] Chloride 100 96 - 110 mmol/L LAB CHEMISTRY METHOD 07/10/2024 7:57 AM [facility] CO2 24 21 - 32 mmol/L LAB CHEMISTRY METHOD 07/10/2024 7:57 AM [facility] Anion Gap 9 3 - 11 LAB CHEMISTRY METHOD 07/10/2024 7:57 AM [facility] Glucose 97 70 - 100 mg/dL LAB CHEMISTRY METHOD 07/10/2024 7:57 AM [facility] BUN 36(H) 5 - 25 mg/dL LAB CHEMISTRY METHOD 07/10/2024 7:57 AM [facility] Creatinine 0.87 0.70 - 1.30 mg/dL LAB CHEMISTRY METHOD 07/10/2024 7:57 AM [facility] eGFR 92 >=60 mL/min/1. 73m2 LAB CHEMISTRY METHOD 07/10/2024 7:57 AM [facility] Comment:Calculation based on the Chronic Kidney Disease Epidemiology Collaboration (CKD-EPI) equation refit without adjustment for race. BUN/Creatinine Ratio 41.4 LAB CHEMISTRY METHOD 07/10/2024 7:57 AM [facility] Calcium 9.3 8.5 - 10.5 mg/dL LAB CHEMISTRY METHOD 07/10/2024 7:57 AM [facility] Blood Venous blood specimen / Unknown Venipuncture / Unknown 07/10/2024 5:02 AM EDT 07/10/2024 6:55 AM EDT us Jamarcus Bruno MD LAB BLOOD ORDERABLES Final Resu lt [facility] [address] [place] [address], documented in this encounter Visit Diagnoses Diagnosis Encounter for other general examination documented in this encounter Care Teams Corporate Strategist Relationship Specialty Start Date End Date Akira Castaneda DO [address] [place] [phone] PCP - General Internal Medicine 02/06/24 documented as of this encounter
--- OUTSIDE RECORDS SUMMARY | 2024-12-30 11:50 | XMS_ITS | Encounter Summary ---
Author Organization [facility] [place] Address [address] [place] [address] Care Team Providers Care Halfway House Counselor Name Role Phone Akira Castaneda DO Primary Care Provider [phone] Encounter Details Date Type Department Care Team (Late st Contact Info) Description 07/04/2024 Lab Requisition [facility] - Main Lab [address] [place] [address] Jamarcus Bruno MD [address] [place] [address] Encounter for other general examination Social History [...] mmol/L LAB CHEMISTRY METHOD 07/04/2024 10:32 AM [facility] CO2 19(L) 21 - 32 mmol/L LAB CHEMISTRY METHOD 07/04/2024 10:32 AM [facility] Anion Gap 12(H) 3 - 11 LAB CHEMISTRY METHOD 07/04/2024 10:32 AM [facility] Glucose 77 70 - 100 mg/dL LAB CHEMISTRY METHOD 07/04/2024 10:32 AM [facility] BUN 28(H) 5 - 25 mg/dL LAB CHEMISTRY METHOD 07/04/2024 10:32 AM [facility] Creatinine 0.73 0.70 - 1.30 mg/dL LAB CHEMISTRY METHOD 07/04/2024 10:32 AM [facility] eGFR 97 >=60 mL/min/1. 73m2 LAB CHEMISTRY METHOD 07/04/2024 10:32 AM [facility] Comment:Calculation based on the Chronic Kidney Disease Epidemiology Collaboration (CKD-EPI) equation refit without adjustment for race. BUN/Creatinine Ratio 38.4 LAB CHEMISTRY METHOD 07/04/2024 10:32 AM [facility] Calcium 9.0 8.5 - 10.5 mg/dL LAB CHEMISTRY METHOD 07/04/2024 10:32 AM [facility] Blood Venous blood specimen / Unknown Venipuncture / Unknown 07/04/2024 5:53 AM EDT 07/04/2024 8:55 AM EDT us Jamarcus Bruno MD LAB BLOOD ORDERABLES Final Resu lt [facility] [address] [place] [address], documented in this encounter Visit Diagnoses Diagnosis Encounter for other general examination documented in this encounter Care Teams Halfway House Counselor Relationship Specialty Start Date End Date Akira Castaneda DO [address] [place] [phone] PCP - General Internal Medicine 02/06/24 documented as of this encounter
--- OUTSIDE RECORDS SUMMARY | 2024-12-30 11:50 | XMS_ITS | Clinical Summary ---
Author Organization [address] Address [address] [place] [phone] Phone Care Team Providers Care Paraeducator Name Role Phone Tonya Akira BRYANT Primary Care Provider [phone] Encounters Date Type Department Care Team Description 10/13/2024 6:31 AM EDT - 10/13/2024 11:59 PM EDT Hospital Encounter [facility] Ultrasound [address] [place] [phone] Fatty liver Discharge Disposition: Home or Self Care 10/06/2024 9:27 AM EDT - 10/06/2024 11:59 PM EDT Hospital Encounter [facility] Ultrasound [address] [place] [phone] Bilateral renal masses Discharge Disposition: Home or [...] Signed Date: 10/14/2024 10:49 ET Workstation ID: [id number] Transcribed By: Self Edit Transcribed Date: 10/14/2024 [...] Signed Date: 10/14/2024 10:49 ET Workstation ID: [id number] Transcribed By: Self Edit Transcribed Date: 10/14/2024 10:43 ET us Akira Mariame DO IMG US PROCEDURES Final Resul t * US Retroperitoneal Complete (10/06/2024 10:06 AM EDT) Anatomical Region Laterality Modality Body Ultrasound 10/06/2024 10:2 1 AM EDT Impressions 10/06/2024 10:36 AM EDT Impression: Bilateral renal cysts confirmed. No suspicious solid mass identified. [place] PA ([id number]) -------- FINAL REPORT -------- Dictated By: Ashley Palomares Dictated Date: 10/06/2024 10:21 ET Assigned Physician: Ashley Palomares Reviewed and Electronically Signed By: Ashley Palomares Signed Date: 10/06/2024 10:36 ET Workstation ID: [id number] Transcribed By: Self Edit Transcribed Date: 10/06/2024 [...] No suspicious solid mass identified. [facility]eler[employer] JULES ([id number]) -------- FINAL REPORT -------- Dictated By: Ashley Palomares Dictated Date: 10/06/2024 10:21 ET Assigned Physician: Ashley Palomares Reviewed and Electronically Signed By: Ashley Palomares Signed Date: 10/06/2024 10:36 ET Workstation ID: [id number] Transcribed By: Self Edit Transcribed Date: 10/06/2024 10:21 ET us Akira Castaneda DO [facility] US PROCEDURES Final Resul t * (ABNORMAL) [...] [facility] [address] [place] [address], from Last 3 Months or Most Recently Relevant to Health Maintenance Insurance [facility] Care Teams Paraeducator Relationship Specialty Start Date End Date Akira Castaneda DO [address] [place] [phone] PCP - General Internal Medicine 02/06/24
--- OUTSIDE RECORDS SUMMARY | 2024-12-30 11:50 | XMS_ITS | Encounter Summary ---
Author Organization [facility] Address [address] [place] [address] Care Team Providers Care Recyclable Materials Sorter Name Role Phone Akira Castaneda DO Primary Care Provider [phone] Encounter Details Date Type Department Care Team (Late st Contact Info) Description 07/11/2024 Lab Requisition [facility] - Main Lab [address] [place] [address] Jamarcus Bruno MD [address] [place] [phone] Encounter for other general examination Social History [...] LAB CHEMISTRY METHOD 07/11/2024 10:58 AM EDT [facility] Potassium 4.3 3.5 - 5.5 mmol/L LAB CHEMISTRY METHOD 07/11/2024 10:58 AM EDT [facility] Chloride 98 96 - 110 mmol/L LAB CHEMISTRY METHOD 07/11/2024 10:58 AM T [facility] CO2 24 21 - 32 mmol/L LAB CHEMISTRY METHOD 07/11/2024 10:58 AM [facility] Anion Gap 11 3 - 11 LAB CHEMISTRY METHOD 07/11/2024 10:58 AM [facility] Glucose 86 70 - 100 mg/dL LAB CHEMISTRY METHOD 07/11/2024 10:58 AM [facility] BUN 30(H) 5 - 25 mg/dL LAB CHEMISTRY METHOD 07/11/2024 10:58 AM [facility] Creatinine 0.78 0.70 - 1.30 mg/dL LAB CHEMISTRY METHOD 07/11/2024 10:58 AM [facility] eGFR 95 >=60 mL/min/1. 73m2 LAB CHEMISTRY METHOD 07/11/2024 10:58 AM [facility] Comment:Calculation based on the Chronic Kidney Disease Epidemiology Collaboration (CKD-EPI) equation refit without adjustment for race. BUN/Creatinine Ratio 38.5 LAB CHEMISTRY METHOD 07/11/2024 10:58 AM [facility] Calcium 9.1 8.5 - 10.5 mg/dL LAB CHEMISTRY METHOD 07/11/2024 10:58 AM [facility] Blood Venous blood specimen / Unknown Venipuncture / Unknown 07/11/2024 5:54 AM EDT 07/11/2024 9:17 AM EDT us Jamarcus Bruno MD LAB BLOOD ORDERABLES Final Resu lt [facility] [address] [place] [address], documented in this encounter Visit Diagnoses Diagnosis Encounter for other general examination documented in this encounter Care Teams Recyclable Materials Sorter Relationship Specialty Start Date End Date Akira Castaneda DO [address] [place] [phone] PCP - General Internal Medicine 02/06/24 documented as of this encounter
--- OUTSIDE RECORDS SUMMARY | 2024-12-30 11:50 | XMS_ITS | Encounter Summary ---
Author Organization [facility] Address [address] [place] [address] Care Team Providers Care Reinsurance Analyst Name Role Phone Akira Castaneda DO Primary Care Provider [phone] Encounter Details Date Type Department Care Team (Late st Contact Info) Description 07/03/2024 Lab Requisition [facility] - Main Lab [address] [place] [address] Jamarcus Bruno MD [address] [place] [address] Encounter for other general examination Social History [...] LAB CHEMISTRY METHOD 07/03/2024 8:18 AM EDT [facility] Blood Venous blood specimen / Unknown Venipuncture / Unknown 07/03/2024 4:53 AM EDT 07/03/2024 7:48 AM EDT us Jamarcus Bruno MD LAB BLOOD ORDERABLES Final Resu lt [facility] [address] [place] [address], [place] [phone] * (ABNORMAL) Basic metabolic panel (07/03/2024 4:53 AM EDT) Sodium 128(L) 133 - 145 mmol/L LAB CHEMISTRY METHOD 07/03/2024 8:41 AM [facility] Potassium 4.6 3.5 - 5.5 mmol/L LAB CHEMISTRY METHOD 07/03/2024 8:41 AM [facility] Chloride 96 96 - 110 mmol/L LAB CHEMISTRY METHOD 07/03/2024 8:41 AM [facility] CO2 24 21 - 32 mmol/L LAB CHEMISTRY METHOD 07/03/2024 8:41 AM [facility] Anion Gap 8 3 - 11 LAB CHEMISTRY METHOD 07/03/2024 8:41 AM [facility] Glucose 107(H) 70 - 100 mg/dL LAB CHEMISTRY METHOD 07/03/2024 8:41 AM [facility] BUN 33(H) 5 - 25 mg/dL LAB CHEMISTRY METHOD 07/03/2024 8:41 AM [facility] Comment:Results verified by repeat testing Creatinine 0.79 0.70 - 1.30 mg/dL LAB CHEMISTRY METHOD 07/03/2024 8:41 AM [facility] eGFR 95 >=60 mL/min/1. 73m2 LAB CHEMISTRY METHOD 07/03/2024 8:41 AM [facility] Comment:Calculation based on the Chronic Kidney Disease Epidemiology Collaboration (CKD-EPI) equation refit without adjustment for race. BUN/Creatinine Ratio 41.8 LAB CHEMISTRY METHOD 07/03/2024 8:41 AM EDT [facility] Calcium 9.2 8.5 - 10.5 mg/dL LAB CHEMISTRY METHOD 07/03/2024 8:41 AM EDT [facility] Blood Venous blood specimen / Unknown Venipuncture / Unknown 07/03/2024 4:53 AM EDT 07/03/2024 7:48 AM EDT us Jamarcus Bruno MD LAB BLOOD ORDERABLES Final Resu lt [facility] [address] [place] [address], [place] [phone] documented in this encounter Visit Diagnoses Diagnosis Encounter for other general examination documented in this encounter Care Teams Reinsurance Analyst Relationship Specialty Start Date End Date Akira Castaneda DO [address] [place] [phone] PCP - General Internal Medicine 02/06/24 documented as of this encounter
--- OUTSIDE RECORDS SUMMARY | 2024-12-30 11:50 | XMS_ITS | Encounter Summary ---
Author Organization [facility] Address [address] [place] [address] Care Team Providers Care Helicopter Utility Aircrewman Name Role Phone Akira Castaneda DO Primary Care Provider [phone] Encounter Details Date Type Department Care Team (Late st Contact Info) Description 07/07/2024 Lab Requisition [facility] - Main Lab [address] [place] [address] Jamarcus Bruno MD [address] [place] [address] Encounter for other general examination Social History [...] LAB CHEMISTRY METHOD 07/07/2024 11:55 AM EDT [facility] Potassium 4.3 3.5 - 5.5 mmol/L LAB CHEMISTRY METHOD 07/07/2024 11:55 AM EDT [facility] Chloride 99 96 - 110 mmol/L LAB CHEMISTRY METHOD 07/07/2024 11:[address] [facility] CO2 23 21 - 32 mmol/L LAB CHEMISTRY METHOD 07/07/2024 11:[address] [facility] Anion Gap 12(H) 3 - 11 LAB CHEMISTRY METHOD 07/07/2024 11:[address] [facility] Glucose 89 70 - 100 mg/dL LAB CHEMISTRY METHOD 07/07/2024 11:[address] [facility] BUN 30(H) 5 - 25 mg/dL LAB CHEMISTRY METHOD 07/07/2024 11:[address] [facility] Creatinine 0.84 0.70 - 1.30 mg/dL LAB CHEMISTRY METHOD 07/07/2024 11:[address] [facility] eGFR 93 >=60 mL/min/1. 73m2 LAB CHEMISTRY METHOD 07/07/2024 11:[address] [facility] Comment:Calculation based on the Chronic Kidney Disease Epidemiology Collaboration (CKD-EPI) equation refit without adjustment for race. BUN/Creatinine Ratio 35.7 LAB CHEMISTRY METHOD 07/07/2024 11:[address] [facility] Calcium 9.4 8.5 - 10.5 mg/dL LAB CHEMISTRY METHOD 07/07/2024 11:[address] [facility] Blood Venous blood specimen / Unknown Venipuncture / Unknown 07/07/2024 5:08 AM EDT 07/07/2024 10:02 AM EDT us Jamarcus Bruno MD LAB BLOOD ORDERABLES Final Resu lt [facility] [address] [place] [address], documented in this encounter Visit Diagnoses Diagnosis Encounter for other general examination documented in this encounter Care Teams Helicopter Utility Aircrewman Relationship Specialty Start Date End Date Akira Castaneda DO [address] [place] [phone] PCP - General Internal Medicine 02/06/24 documented as of this encounter
--- OUTSIDE RECORDS SUMMARY | 2024-12-30 11:50 | XMS_ITS | Encounter Summary ---
Author Organization [facility] Address [address] [place] [address] Care Team Providers Care Brick Paver Name Role Phone Akira Castaneda DO Primary Care Provider [phone] Encounter Details Date Type Department Care Team (Late st Contact Info) Description 07/01/2024 Lab Requisition [facility] - Main Lab [address] [place] [address] Jamarcus Bruno MD [address] [place] [address] Encounter for other general examination Social History [...] LAB CHEMISTRY METHOD 07/01/2024 11:22 AM EDT [facility] Potassium 4.3 3.5 - 5.5 mmol/L LAB CHEMISTRY METHOD 07/01/2024 11:22 AM EDT [facility] Chloride 96 96 - 110 mmol/L LAB CHEMISTRY METHOD 07/01/2024 11:22 AM [facility] CO2 23 21 - 32 mmol/L LAB CHEMISTRY METHOD 07/01/2024 11:22 AM [facility] Anion Gap 11 3 - 11 LAB CHEMISTRY METHOD 07/01/2024 11:22 AM [facility] Glucose 99 70 - 100 mg/dL LAB CHEMISTRY METHOD 07/01/2024 11:22 AM [facility] BUN 18 5 - 25 mg/dL LAB CHEMISTRY METHOD 07/01/2024 11:22 AM [facility] Creatinine 0.59(L) 0.70 - 1.30 mg/dL LAB CHEMISTRY METHOD 07/01/2024 11:22 AM [facility] eGFR 104 >=60 mL/min/1. 73m2 LAB CHEMISTRY METHOD 07/01/2024 11:22 AM [facility] Comment:Calculation based on the Chronic Kidney Disease Epidemiology Collaboration (CKD-EPI) equation refit without adjustment for race. BUN/Creatinine Ratio 30.5 LAB CHEMISTRY METHOD 07/01/2024 11:22 AM [facility] Calcium 8.3(L) 8.5 - 10.5 mg/dL LAB CHEMISTRY METHOD 07/01/2024 11:22 AM [facility] Blood Venous blood specimen / Unknown Venipuncture / Unknown 07/01/2024 6:45 AM EDT 07/01/2024 9:38 AM EDT us Jamarcus Bruno MD LAB BLOOD ORDERABLES Final Resu lt [facility] [address] [place] [address], documented in this encounter Visit Diagnoses Diagnosis Encounter for other general examination documented in this encounter Care Teams Brick Paver Relationship Specialty Start Date End Date Akira Castaneda DO [address] [place] [phone] PCP - General Internal Medicine 02/06/24 documented as of this encounter
--- OUTSIDE RECORDS SUMMARY | 2024-12-30 11:51 | XMS_ITS | Encounter Summary ---
Author Organization [facility] Address [address] [place] [address] Care Team Providers Care Corn Sheller Name Role Phone DollyAkira moore Primary Care Provider [phone] Encounter Details Date Type Department Care Team (Late st Contact Info) Description 06/30/2024 Lab Requisition [facility] - Main Lab [address] [facility] [place] [address] Jamarcus Bruno MD [address] [place] [phone] Encounter for other general examination Social History [...] AM EDT) [facility] WBC 10.0 4.8 - 10.8 K/mcL LAB HEMETOLOGY METHOD 06/30/2024 12:15 PM EDT [facility] RBC 4.50 4.50 - 5.50 M/mcL LAB HEMETOLOGY METHOD 06/30/2024 12:15 PM EDT [facility] Hemoglobin 13.9 13.5 - 17.5 g/dL LAB HEMETOLOGY METHOD 06/30/2024 12:15 PM EDT [facility] Hematocrit 41.0(L) 42.0 - 54.0 % LAB HEMETOLOGY METHOD 06/30/2024 12:15 PM EDT [facility] MCV 91.7 79.0 - 98.0 FL LAB [facility]OLOGY [facility] MCH 31.1 27.0 - 32.0 pcg LAB HEMETOLOGY METHOD 06/30/2024 12:15 PM EDT [facility] MCHC 33.9 32.0 - 37.0 g/dL LAB HEMETOLOGY METHOD 06/30/2024 12:15 PM EDT [facility] RDW 11.8 11.0 - 15.0 % LAB HEMETOLOGY METHOD 06/30/2024 12:15 PM EDT [facility] Platelets 271 130 - 400 K/mcL LAB HEMETOLOGY METHOD 06/30/2024 12:15 PM EDT [facility] MPV 9.3 7.0 - 11.0 FL LAB HEMETOLOGY METHOD 06/30/2024 12:15 PM EDT [facility] NRBC 0.0 <1.0 % LAB HEMETOLOGY METHOD 06/30/2024 12:15 PM EDT [facility] NRBC Absolute 0.00 <0.10 K/mcL LAB HEMETOLOGY METHOD [facility]24 [facility] Neutrophils Relative 68.1 % LAB HEMETOLOGY METHOD 06/30/2024 12:15 PM [facility] Lymphocytes Relative 15.4 % LAB HEMETOLOGY METHOD 06/30/2024 12:15 PM [facility] Monocytes Relative 9.7 % LAB HEMETOLOGY METHOD 06/30/2024 12:15 PM [facility] Eosinophils Relative 5.5 % LAB HEMETOLOGY METHOD 06/30/2024 12:15 PM [facility] Basophils Relative 0.8 % LAB HEMETOLOGY METHOD 06/30/2024 12:15 PM [facility] Immature Granulocytes Relative 0.5 % LAB HEMETOLOGY METHOD 06/30/2024 12:15 PM [facility] Neutrophils Absolute 6.78 1.50 - 7.00 K/mcL LAB HEMETOLOGY METHOD 06/30/2024 12:15 PM [facility] Lymphocytes Absolute 1.53 1.00 - 5.00 K/mcL LAB HEMETOLOGY METHOD 06/30/2024 12:15 PM [facility] Monocytes Absolute 0.97 0.20 - 1.00 K/mcL LAB HEMETOLOGY METHOD 06/30/2024 12:15 PM [facility] Eosinophils Absolute 0.55(H) 0.00 - 0.50 K/mcL LAB HEMETOLOGY METHOD 06/30/2024 12:15 PM [facility] Basophils Absolute 0.08 0.00 - 0.20 K/mcL LAB HEMETOLOGY METHOD 06/30/2024 12:15 PM [facility] Immature Granulocytes Absolute 0.05(H) 0.00 - 0.03 K/mcL LAB HEMETOLOGY METHOD 06/30/2024 12:15 PM [facility] Blood Venous blood specimen / Unknown Venipuncture / Unknown 06/30/2024 5:37 AM EDT 06/30/2024 10:16 AM EDT us Jamarcus Bruno MD LAB BLOOD ORDERABLES Final Resu lt Performing Organization Address [facility]/ZIP Co de Phone Number [facility] [address] [place] [address], [place] [phone] * Magnesium (06/30/2024 5:37 AM EDT) Pathologist [facility] Magnesium 2.2 1.9 - 2.6 mg/dL LAB CHEMISTRY METHOD 06/30/2024 1:35 PM EDT [facility] Blood Venous blood specimen / Unknown Venipuncture / Unknown 06/30/2024 5:37 AM EDT 06/30/2024 10:16 AM EDT us Jamarcus Bruno MD LAB BLOOD ORDERABLES Final Resu lt Performing Organization Address [facility]/ZIP Co de Phone Number [facility] [address] [place] [address], [place] [phone] * (ABNORMAL) Comprehensive metabolic panel (06/30/2024 5:37 AM EDT) Sodium 127(L) 133 - 145 mmol/L LAB CHEMISTRY METHOD 06/30/2024 2:11 PM EDT [facility] Potassium 4.0 3.5 - 5.5 mmol/L LAB CHEMISTRY METHOD 06/30/2024 2:11 PM EDT [facility] Chloride 93(L) 96 - 110 mmol/L LAB CHEMISTRY METHOD 06/30/2024 2:11 PM EDT [facility] CO2 20(L) 21 - 32 mmol/L LAB CHEMISTRY METHOD 06/30/2024 2:11 PM EDT [facility] Anion Gap 14(H) 3 - 11 LAB CHEMISTRY METHOD 06/30/2024 2:11 PM [facility] Glucose 102(H) 70 - 100 mg/dL LAB CHEMISTRY METHOD 06/30/2024 2:11 PM [facility] BUN 19 5 - 25 mg/dL LAB CHEMISTRY METHOD 06/30/2024 2:11 PM [facility] Creatinine 0.69(L) 0.70 - 1.30 mg/dL LAB CHEMISTRY METHOD 06/30/2024 2:11 PM [facility] eGFR 99 >=60 mL/min/1. 73m2 LAB CHEMISTRY METHOD 06/30/2024 2:11 PM [facility] Comment:Calculation based on the Chronic Kidney Disease Epidemiology Collaboration (CKD-EPI) equation refit without adjustment for race. BUN/Creatinine Ratio 27.5 LAB CHEMISTRY METHOD 06/30/2024 2:11 PM [facility] Calcium 8.7 8.5 - 10.5 mg/dL LAB CHEMISTRY METHOD 06/30/2024 2:11 PM [facility] AST (SGOT) 34 10 - 42 unit/L LAB CHEMISTRY METHOD 06/30/2024 2:11 PM [facility] ALT (SGPT) 86(H) 10 - 60 unit/L LAB CHEMISTRY METHOD 06/30/2024 2:11 PM [facility] Comment:Results verified by repeat testing Alkaline Phosphatase 63 42 - 121 unit/L LAB CHEMISTRY METHOD 06/30/2024 2:11 PM [facility] Total Protein 6.9 6.0 - 8.0 g/dL LAB CHEMISTRY METHOD 06/30/2024 2:11 PM [facility] Albumin 3.1(L) 3.2 - 5.0 g/dL LAB CHEMISTRY METHOD 06/30/2024 2:11 PM [facility] Total Bilirubin 0.6 0.0 - 1.4 mg/dL LAB CHEMISTRY METHOD 06/30/2024 2:11 PM EDT [facility] Blood Venous blood specimen / Unknown Venipuncture / Unknown 06/30/2024 5:37 AM EDT 06/30/2024 10:16 AM EDT us Jamarcus Bruno MD LAB BLOOD ORDERABLES Final Resu lt [facility] [address] [place] [address], documented in this encounter Visit Diagnoses Diagnosis Encounter for other general examination documented in this encounter Care Teams Corn Sheller Relationship Specialty Start Date End Date Akira Castaneda DO [address] [place] [phone] PCP - General Internal Medicine 02/06/24 documented as of this encounter
== END 2024-12-30 11:09 | disposition home or self-care (01) ==
LOC: HO.HCS 10:19
PROVIDERS: PCP Internal Medicine; Visit Provider Internal Medicine
DX: I25.10 Atherosclerotic heart disease of native coronary artery without angina pectoris (principal); Z95.1 Presence of aortocoronary bypass graft; I65.23 Occlusion and stenosis of bilateral carotid arteries; I10 Essential (primary) hypertension; E78.5 Hyperlipidemia, unspecified; I62.9 Nontraumatic intracranial hemorrhage, unspecified
CPT/HCPCS: 93010; 99214; G2211

== ENCOUNTER → 2024-12-30 10:18 | Outpatient (BNVA) | payer MEDICARE, SELFPAY | PROVIDERS: PCP Internal Medicine; Visit Provider Internal Medicine | DX: I25.10 Atherosclerotic heart disease of native coronary artery without angina pectoris (principal); I10 Essential (primary) hypertension; I65.23 Occlusion and stenosis of bilateral carotid arteries; Z95.1 Presence of aortocoronary bypass graft | CPT/HCPCS: 93005; 99212 ==

== ENCOUNTER 2025-02-10 13:17 | Outpatient (AMB) | payer MEDICARE, SELFPAY ==
[2025-02-10 13:19] VITALS: BP 118/62; PULSE 64; BMI 31.5
--- NOTE | 2025-02-10 13:19 | MHC.OFFVIS ---
Vital Signs 02/10/25 13:19 Height 5 ft 7 in Weight 201 lb 0.985 oz BMI 31.5 BP 118/62 Blood Pressure Location Lt brachial Position Sitting Pulse 64 Pulse Source Monitor Intake Visit Reasons: 6wk/cardiac rehab HS Flat Surfacer Jewel Required: No Allergies No Known Allergies Allergy (Verified 02/10/25 13:23) Medication List - Last Reconciled 02/10/25 by Meena Gomez, KAT acetaminophen 650 mg PO Q4H PRN allopurinol 100 mg PO QAM amiodarone 200 mg PO BID amlodipine 10 mg PO QAM aspirin (Adult Aspirin Regimen) 81 mg PO QAM famotidine 40 mg PO BEDTIME fluticasone propionate 50 mcg/actuation 2 sprays intranasal BID lisinopril 40 mg PO DAILY metoprolol tartrate 25 mg PO BID rosuvastatin 20 mg PO QAM HPI HPI 6wk/cardiac rehab HS: Details: The patient is a 74 year old male presenting with follow-up for coronary artery disease after recent coronary artery bypass grafting and right carotid endarterectomy. He was recently evaluated for preoperative cardiac risk stratification for carotid surgery, which included an abnormal coronary CTA followed by a cardiac catheterization on 11/18/2024. The catheterization revealed severe multivessel disease, including 95% stenosis of the proximal LAD, 50% stenosis in a left circumflex branch, 80% stenosis of an osteal inferior branch, and a 100% SOIL SCIENCE TECHNICAL OFFICER of the proximal-mid LAD. Consequently, he underwent coronary artery bypass grafting and a right carotid endarterectomy on 12/18/2024. Postoperatively, he reports some soreness on his left chest but denies any other chest pain or palpitations. He has been sleeping in a bed for approximately three weeks, having previously slept in a recliner, and notes discomfort sleeping on his left side. He has just started cardiac rehab , going three times a week and also uses a treadmill at home on other days. He denies any issues with breathing and does not smoke. His past medical history includes hypertension, hyperlipidemia, and sleep apnea. 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 He is being followed by a neuro-makeup instructor for his vision and has an upcoming appointment. Due to his vision, he has not been driving since June. [facility] Medical History Atherosclerotic cardiovascular disease Gout Arthritis GERD (gastroesophageal reflux disease) Fatty liver Renal cyst Sleep apnea Intracranial hemorrhage Hyperlipidemia, unspecified Essential hypertension Surgical History Status post aorto-coronary artery bypass graft H/O colonoscopy History of surgery on lower extremity Hx of left inguinal hernia repair Family History Father Stroke Brother Heart attack Social History Are you a primary home care consultant to a significant other at home: No Do you presently have visiting nurse or other home services: No Comment: advised of trip hazard Patient Tobacco Use Status: Never used Tobacco Review of Systems Const All systems reviewed & are unremarkable except as noted in HPI and below ENT Denies dizziness Card Denies chest pain, Denies chest pain at rest, Denies chest pain with activity, Denies rapid heart rate, Denies pedal edema, Denies edema, Denies leg edema, Denies lightheadedness, Denies palpitations, Denies dyspnea, Denies dyspnea on exertion and Denies orthopnea Resp Denies cough, Denies dyspnea and Denies dyspnea on exertion GI Denies hematochezia and Denies change in stool character Musc Denies abnormal gait, Denies limited range of motion, Denies muscle cramps, Denies muscle weakness, Denies numbness, Denies radiating pain into limb, Denies stiffness and Denies tingling Neuro Denies abnormal gait, Denies dizziness, Denies numbness and Denies tingling Endo Denies palpitations Physical Exam Vital Signs: Last Vital Signs Pulse 64 02/10/25 13:19 BP 118/62 02/10/25 13:19 BMI result Body Mass Index 31.5 Const General: cooperative, healthy appearing, comfortable and no acute distress Orientation/consciousness: patient oriented x3 Neck Other: carotid endarterectomy scar on right well healed Neck: Yes normal visual inspection Chest Other: sternal incision well healed Resp Effort & Inspection: normal respiratory effort Auscultation: clear to auscultation bilaterally, no rales, no rhonchi and no wheezes Cardio Rate: regular rate Rhythm: regular rhythm Heart sounds: S1 normal heart sound present, S2 normal heart sound present, no gallops, no murmurs and no rubs Neuro General: patient oriented x3 Extrem Other: sock markings General: Yes normal to inspection, No no pedal edema and No calf tenderness Psych Appearance: grossly normal Mental Status: mental status grossly normal Speech and movement: Normal speech and movement present Office Procedures EKG Details: Today, read by me sinus rhythm with first-degree AV block, left anterior fascicular block, rate 64, QTC 443 milliseconds [id number], Complete Assessment & Plan Assessment & Plan (1) Atherosclerotic cardiovascular disease: Code(s): I25.10 - Atherosclerotic heart disease of [place] coronary artery without angina pectoris Category: Medical Plan: Finding of significant coronary artery disease as part of preop evaluation for carotid surgery. He then underwent coronary artery bypass grafting with GALLARDO to LAD SVG graft to OM 2 and right PDA as well as right carotid endarterectomy on 12/18/2024. He has done well postoperatively. EKG today showing sinus rhythm with first-degree AV block, left anterior fascicular block, rate 64. He has started cardiac rehab. Will check echocardiogram before next visit. Continue aspirin indefinitely. Continue metoprolol and lisinopril for good heart rate and blood pressure control. Continue rosuvastatin with ideal LDL goal less than 70. Cardiology follow-up 3 months, sooner if needed. (2) Status post aorto-coronary artery bypass graft: Comment: 12/18/2024, gallardo to LAD, SVG graft to OM 2 and right PDA, carotid endarterectomy at that time. Code(s): Z95.1 - Presence of aortocoronary bypass graft Category: Surgical Plan: As above (3) Bilateral carotid artery stenosis: Code(s): I65.23 - Occlusion and stenosis of bilateral carotid arteries Category: Medical Plan: Carotid Doppler 09/27/2024 showing right ICA 80-99% stenosis. Right carotid endarterectomy done at time of coronary artery bypass grafting. Being followed by [facility] vascular. On aspirin and statin. (4) S/P carotid endarterectomy: Comment: 12/18/2024, right carotid endarterectomy Code(s): Z98.890 - Other specified postprocedural states Category: Surgical (5) Essential hypertension: Code(s): I10 - Essential (primary) hypertension Category: Medical Plan: Blood pressure goal less than 130/80. Well controlled today. No med changes made. (6) Hyperlipidemia, unspecified: Code(s): E78.5 - Hyperlipidemia, unspecified Category: Medical Plan: [place] LDL goal less than 70. No recent lipid profile in our system for review. Continue atorvastatin with ideal LDL goal less than 70. Will check fasting lipids before next visit. Plan I discussed the patient's excellent recovery following his recent coronary artery bypass grafting and right carotid endarterectomy. We reviewed that his blood pressure is well-controlled at 122/58, and therefore, no changes to his lisinopril are needed. I confirmed he should continue metoprolol, aspirin, and rosuvastatin, but should not refill the amiodarone, as it is only for short-term use post-surgery. We discussed his international travel plans to [facility] at the end of May. I advised him that there is no cardiac reason to prevent travel, as long as he feels well and avoids overexertion. I supported his 's guidance for him not to perform strenuous activities like yard work while on vacation. I acknowledged his ongoing diplopia and his upcoming specialist appointment. I explained the plan to order an echocardiogram before his next visit to assess his heart's function post-operatively and ensure everything is looking as it should. Orders: Orders CA echo transthoracic complete Today KAT Palmer Z95.1 - Presence of aortocoronary bypass graft Lipid Panel Today KAT Palmer I25.10 - Atherosclerotic heart disease of [place] coronary artery without angina pectoris Comprehensive Met. Panel Today KAT Palmer I25.10 - Atherosclerotic heart disease of [place] coronary artery without angina pectoris Medications: Changed From lisinopril 20 mg PO DAILY 30 tabs 3RF To lisinopril 40 mg PO DAILY Esdras Johnson MD Patient Instructions: - Continue taking your current medicines for your heart and blood pressure (metoprolol, aspirin, rosuvastatin, lisinopril) as prescribed. - Do not get a refill for the amiodarone medication. When you run out of the current supply, you are done taking it. - Continue attending cardiac rehab. It is okay to use your home treadmill on other days, but do not push yourself too hard. - Some chest soreness is normal after surgery. If it hurts to sleep on your side, avoid that position. - Do not drive because of your double vision. - We will schedule an ultrasound of your heart (echocardiogram) to be done before your next appointment. - It is okay for you to travel to [facility] in May as long as you feel well. Avoid strenuous activity like heavy yard work while you are there. Patient was informed and verbally consented to the use of an ambient scribe for clinic note documentation during this visit. Visit time spent on chart review, interview, assessment, orders, documentation. Coding Level of Care Code Est Pt Level 4 (17198) Add On Problem Visit Only Diagnoses Atherosclerotic cardiovascular disease I25.10 Status post aorto-coronary artery bypass graft Z95.1 Bilateral carotid artery stenosis I65.23 S/P carotid endarterectomy Z98.890 Essential hypertension I10 Hyperlipidemia, unspecified E78.5 CPT Codes EKG - CPT: 79226-[id number], Complete ([id number]) Time Spent (min) 32
--- OUTSIDE RECORDS SUMMARY | 2025-02-10 14:24 | XMS_ITS | Encounter Summary ---
Author Organization [facility] [place] [facility] Address [address] [place] [address] Care Team Providers Care High School Mathematics Teacher Name Role Phone Akira Castaneda DO Primary Care Provider [phone] Encounter Details Date Type Department Care Team (Late st Contact Info) Description 07/03/2024 Lab Requisition [facility] - Main Lab [address] [place] [address] Jamarcus Bruno MD [address] [place] [address] Encounter for other general examination Social History [...] LAB CHEMISTRY METHOD 07/03/2024 8:18 AM EDT [facility] Blood Venous blood specimen / Unknown Venipuncture / Unknown 07/03/2024 4:53 AM EDT 07/03/2024 7:48 AM EDT us Jamarcus Bruno MD LAB BLOOD ORDERABLES Final Resu lt [facility] [address] [place] [address], [place] [phone] * (ABNORMAL) Basic metabolic panel (07/03/2024 4:53 AM EDT) Sodium 128(L) 133 - 145 mmol/L LAB CHEMISTRY METHOD 07/03/2024 8:41 AM [facility] Potassium 4.6 3.5 - 5.5 mmol/L LAB CHEMISTRY METHOD 07/03/2024 8:41 AM [facility] Chloride 96 96 - 110 mmol/L LAB CHEMISTRY METHOD 07/03/2024 8:41 AM [facility] CO2 24 21 - 32 mmol/L LAB CHEMISTRY METHOD 07/03/2024 8:41 AM [facility] Anion Gap 8 3 - 11 LAB CHEMISTRY METHOD 07/03/2024 8:41 AM [facility] Glucose 107(H) 70 - 100 mg/dL LAB CHEMISTRY METHOD 07/03/2024 8:41 AM [facility] BUN 33(H) 5 - 25 mg/dL LAB CHEMISTRY METHOD 07/03/2024 8:41 AM [facility] Comment:Results verified by repeat testing Creatinine 0.79 0.70 - 1.30 mg/dL LAB CHEMISTRY METHOD 07/03/2024 8:41 AM [facility] eGFR 95 >=60 mL/min/1. 73m2 LAB CHEMISTRY METHOD 07/03/2024 8:41 AM [facility] Comment:Calculation based on the Chronic Kidney Disease Epidemiology Collaboration (CKD-EPI) equation refit without adjustment for race. BUN/Creatinine Ratio 41.8 LAB CHEMISTRY METHOD 07/03/2024 8:41 AM EDT [facility] Calcium 9.2 8.5 - 10.5 mg/dL LAB CHEMISTRY METHOD 07/03/2024 8:41 AM EDT [facility] Blood Venous blood specimen / Unknown Venipuncture / Unknown 07/03/2024 4:53 AM EDT 07/03/2024 7:48 AM EDT us Jamarcus Bruno MD LAB BLOOD ORDERABLES Final Resu lt [facility] [address] [place] [address], [place] [phone] documented in this encounter Visit Diagnoses Diagnosis Encounter for other general examination documented in this encounter Care Teams [employer] Mathematics Teacher Relationship Specialty Start Date End Date Akira Castaneda DO [address] [place] [phone] PCP - General Internal Medicine 02/06/24 documented as of this encounter
--- OUTSIDE RECORDS SUMMARY | 2025-02-10 14:24 | XMS_ITS | Encounter Summary ---
Author Organization [facility] Address [address] [place] [address] Care Team Providers Care Engineering Vice President Name Role Phone Akira Castaneda DO Primary Care Provider [phone] Encounter Details Date Type Department Care Team (Late st Contact Info) Description 07/11/2024 Lab Requisition [facility] - Main Lab [address] [place] [address] Jamarcus Bruno MD [address] [place] [address] Encounter for other general examination Social History [...] LAB CHEMISTRY METHOD 07/11/2024 10:58 AM EDT [facility] Potassium 4.3 3.5 - 5.5 mmol/L LAB CHEMISTRY METHOD 07/11/2024 10:58 AM EDT [facility] Chloride 98 96 - 110 mmol/L LAB CHEMISTRY METHOD 07/11/2024 10:58 AM T [facility] CO2 24 21 - 32 mmol/L LAB CHEMISTRY METHOD 07/11/2024 10:58 AM [facility] Anion Gap 11 3 - 11 LAB CHEMISTRY METHOD 07/11/2024 10:58 AM [facility] Glucose 86 70 - 100 mg/dL LAB CHEMISTRY METHOD 07/11/2024 10:58 AM [facility] BUN 30(H) 5 - 25 mg/dL LAB CHEMISTRY METHOD 07/11/2024 10:58 AM [facility] Creatinine 0.78 0.70 - 1.30 mg/dL LAB CHEMISTRY METHOD 07/11/2024 10:58 AM [facility] eGFR 95 >=60 mL/min/1. 73m2 LAB CHEMISTRY METHOD 07/11/2024 10:58 AM [facility] Comment:Calculation based on the Chronic Kidney Disease Epidemiology Collaboration (CKD-EPI) equation refit without adjustment for race. BUN/Creatinine Ratio 38.5 LAB CHEMISTRY METHOD 07/11/2024 10:58 AM [facility] Calcium 9.1 8.5 - 10.5 mg/dL LAB CHEMISTRY METHOD 07/11/2024 10:58 AM [facility] Blood Venous blood specimen / Unknown Venipuncture / Unknown 07/11/2024 5:54 AM EDT 07/11/2024 9:17 AM EDT us Jamarcus Bruno MD LAB BLOOD ORDERABLES Final Resu lt [facility] [address] [place] [address], documented in this encounter Visit Diagnoses Diagnosis Encounter for other general examination documented in this encounter Care Teams Engineering Vice President Relationship Specialty Start Date End Date Akira Castaneda DO [address] [place] [phone] PCP - General Internal Medicine 02/06/24 documented as of this encounter
--- OUTSIDE RECORDS SUMMARY | 2025-02-10 14:24 | XMS_ITS | Encounter Summary ---
Author Organization [facility] Address [address] [place] [address] Care Team Providers Care Carbon Blocks Press Operator Name Role Phone Akira Castaneda DO Primary Care Provider [phone] Encounter Details Date Type Department Care Team (Late st Contact Info) Description 07/10/2024 Lab Requisition [facility] - Main Lab [address] [place] [address] Jamarcus Bruno MD [address] [place] [address] Encounter for other general examination Social History [...] LAB CHEMISTRY METHOD 07/10/2024 7:57 AM EDT [facility] Potassium 4.6 3.5 - 5.5 mmol/L LAB CHEMISTRY METHOD 07/10/2024 7:57 AM EDT [facility] Chloride 100 96 - 110 mmol/L LAB CHEMISTRY METHOD 07/10/2024 7:57 AM [facility] CO2 24 21 - 32 mmol/L LAB CHEMISTRY METHOD 07/10/2024 7:57 AM [facility] Anion Gap 9 3 - 11 LAB CHEMISTRY METHOD 07/10/2024 7:57 AM [facility] Glucose 97 70 - 100 mg/dL LAB CHEMISTRY METHOD 07/10/2024 7:57 AM [facility] BUN 36(H) 5 - 25 mg/dL LAB CHEMISTRY METHOD 07/10/2024 7:57 AM [facility] Creatinine 0.87 0.70 - 1.30 mg/dL LAB CHEMISTRY METHOD 07/10/2024 7:57 AM [facility] eGFR 92 >=60 mL/min/1. 73m2 LAB CHEMISTRY METHOD 07/10/2024 7:57 AM [facility] Comment:Calculation based on the Chronic Kidney Disease Epidemiology Collaboration (CKD-EPI) equation refit without adjustment for race. BUN/Creatinine Ratio 41.4 LAB CHEMISTRY METHOD 07/10/2024 7:57 AM [facility] Calcium 9.3 8.5 - 10.5 mg/dL LAB CHEMISTRY METHOD 07/10/2024 7:57 AM [facility] Blood Venous blood specimen / Unknown Venipuncture / Unknown 07/10/2024 5:02 AM EDT 07/10/2024 6:55 AM EDT us Jamarcus Bruno MD LAB BLOOD ORDERABLES Final Resu lt [facility] [address] [place] [address], documented in this encounter Visit Diagnoses Diagnosis Encounter for other general examination documented in this encounter Care Teams Carbon Blocks Press Operator Relationship Specialty Start Date End Date Akira Castaneda DO [address] [place] [phone] PCP - General Internal Medicine 02/06/24 documented as of this encounter
--- OUTSIDE RECORDS SUMMARY | 2025-02-10 14:24 | XMS_ITS | Clinical Summary ---
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 ([facility] V24) Intracerebral hemorrhage ([facility] V24, [facility] V28) Encounter for screening for malignant neoplasm of prostate Enlarged prostate from Last 3 Months or Most Recently Relevant to Health Maintenance Results * (ABNORMAL) Lipid panel with reflex to direct LDL (07/17/2024 9:32 AM EDT) Cholesterol 165 0 - 200 mg/dL LAB CHEMISTRY METHOD 07/17/2024 12:09 PM [facility] Triglycerides 266(H) 0 - 150 mg/dL LAB CHEMISTRY METHOD 07/17/2024 12:09 PM [facility] HDL 49 >=40 mg/dL LAB CHEMISTRY METHOD 07/17/2024 12:09 PM [facility] LDL Calculated 63 0 - 100 mg/dL LAB CHEMISTRY METHOD 07/17/2024 12:09 PM [facility] VLDL Cholesterol Jordi 53.2 mg/dL [...] 07/17/2024 9:32 AM EDT us Neva Martinez SALES SERVICE REPRESENTATIVE LAB BLOOD ORDERABLES Fi nal Result [facility]) [facility] [address] [place] [address], [place] [phone] from Last 3 Months or Most Recently Relevant to Health Maintenance Insurance [place] [address] Care Teams Live Study Manager Relationship Specialty Start Date End Date Akira Castaneda DO [address] [place] [phone] PCP - General Internal Medicine 02/06/24
--- OUTSIDE RECORDS SUMMARY | 2025-02-10 14:24 | XMS_ITS | Encounter Summary ---
Author Organization [facility] Address [address] [place] [address] Care Team Providers Care Blowing Engineer Name Role Phone Akira Castaneda DO Primary Care Provider [phone] Encounter Details Date Type Department Care Team (Late st Contact Info) Description 07/04/[address] [facility] - Main Lab [address] [place] [address] Jamarcus Bruno MD [address] [place] [address] Encounter for other general examination Social History [...] LAB CHEMISTRY METHOD 07/04/2024 10:32 AM EDT [facility] Potassium 4.9 3.5 - 5.5 mmol/L LAB CHEMISTRY METHOD 07/04/2024 10:32 AM EDT [facility] Chloride 99 96 - 110 mmol/L LAB CHEMISTRY METHOD 07/04/2024 10:32 AM [facility] CO2 19(L) 21 - 32 mmol/L LAB CHEMISTRY METHOD 07/04/2024 10:32 AM [facility] Anion Gap 12(H) 3 - 11 LAB CHEMISTRY METHOD 07/04/2024 10:32 AM [facility] Glucose 77 70 - 100 mg/dL LAB CHEMISTRY METHOD 07/04/2024 10:32 AM [facility] BUN 28(H) 5 - 25 mg/dL LAB CHEMISTRY METHOD 07/04/2024 10:32 AM [facility] Creatinine 0.73 0.70 - 1.30 mg/dL LAB CHEMISTRY METHOD 07/04/2024 10:32 AM [facility] eGFR 97 >=60 mL/min/1. 73m2 LAB CHEMISTRY METHOD 07/04/2024 10:32 AM [facility] Comment:Calculation based on the Chronic Kidney Disease Epidemiology Collaboration (CKD-EPI) equation refit without adjustment for race. BUN/Creatinine Ratio 38.4 LAB CHEMISTRY METHOD 07/04/2024 10:32 AM [facility] Calcium 9.0 8.5 - 10.5 mg/dL LAB CHEMISTRY METHOD 07/04/2024 10:32 AM [facility] Blood Venous blood specimen / Unknown Venipuncture / Unknown 07/04/2024 5:53 AM EDT 07/04/2024 8:55 AM EDT us Jamarcus Bruno MD LAB BLOOD ORDERABLES Final Resu lt [facility] [address] [place] [address], documented in this encounter Visit Diagnoses Diagnosis Encounter for other general examination documented in this encounter Care Teams Blowing Engineer Relationship Specialty Start Date End Date Akira Castaneda DO [address] [place] [phone] PCP - General Internal Medicine 02/06/24 documented as of this encounter
--- OUTSIDE RECORDS SUMMARY | 2025-02-10 14:24 | XMS_ITS | Encounter Summary ---
Author Organization [facility] Address [address] [place] [address] Care Team Providers Care Supervisor Rough End Name Role Phone Akira Castaneda DO Primary Care Provider [phone] Encounter Details Date Type Department Care Team (Late st Contact Info) Description 07/07/2024 Lab Requisition [facility] - Main Lab [address] [place] [address] Jamarcus Bruno MD [address] [place] [address] Encounter for other general examination Social History [...] LAB CHEMISTRY METHOD 07/07/2024 11:55 AM EDT [facility] Potassium 4.3 3.5 - 5.5 mmol/L LAB CHEMISTRY METHOD 07/07/2024 11:55 AM EDT [facility] Chloride 99 96 - 110 mmol/L LAB CHEMISTRY METHOD 07/07/2024 11:55 AM [facility] CO2 23 21 - 32 mmol/L LAB CHEMISTRY METHOD 07/07/2024 11:55 AM [facility] Anion Gap 12(H) 3 - 11 LAB CHEMISTRY METHOD 07/07/2024 11:55 AM [facility] Glucose 89 70 - 100 mg/dL LAB CHEMISTRY METHOD 07/07/2024 11:55 AM [facility] BUN 30(H) 5 - 25 mg/dL LAB CHEMISTRY METHOD 07/07/2024 11:55 AM [facility] Creatinine 0.84 0.70 - 1.30 mg/dL LAB CHEMISTRY METHOD 07/07/2024 11:55 AM [facility] eGFR 93 >=60 mL/min/1. 73m2 LAB CHEMISTRY METHOD 07/07/2024 11:55 AM [facility] Comment:Calculation based on the Chronic Kidney Disease Epidemiology Collaboration (CKD-EPI) equation refit without adjustment for race. BUN/Creatinine Ratio 35.7 LAB CHEMISTRY METHOD 07/07/2024 11:55 AM [facility] Calcium 9.4 8.5 - 10.5 mg/dL LAB CHEMISTRY METHOD 07/07/2024 11:55 AM [facility] Blood Venous blood specimen / Unknown Venipuncture / Unknown 07/07/2024 5:08 AM EDT 07/07/2024 10:02 AM EDT us Jamarcus Bruno MD LAB BLOOD ORDERABLES Final Resu lt [facility] [address] [place] [address], documented in this encounter Visit Diagnoses Diagnosis Encounter for other general examination documented in this encounter Care Teams Supervisor Rough End Relationship Specialty Start Date End Date Akira Castaneda DO [address] [place] [phone] PCP - General Internal Medicine 02/06/24 documented as of this encounter
--- OUTSIDE RECORDS SUMMARY | 2025-02-10 14:24 | XMS_ITS | Encounter Summary ---
Author Organization [facility] Address [address] [place] [address] Care Team Providers Care Mixer Crane Operator Name Role Phone DollyAkira moore Primary Care Provider [phone] Encounter Details Date Type Department Care Team (Late st Contact Info) Description 06/30/2024 Lab Requisition [facility] - Main Lab [address] [facility] [place] [address] Jamarcus Bruno MD [address] [place] [address] Encounter for other general examination Social History [...] CBC auto differential (06/30/2024 5:37 AM EDT) [facility] WBC 10.0 4.8 - 10.8 K/mcL LAB HEMETOLOGY METHOD 06/30/2024 12:15 PM EDT [facility] RBC 4.50 4.50 - 5.50 M/mcL LAB HEMETOLOGY METHOD 06/30/2024 12:15 PM EDT [facility] Hemoglobin 13.9 13.5 - 17.5 g/dL LAB HEMETOLOGY METHOD 06/30/2024 12:15 PM EDT [facility] Hematocrit 41.0(L) 42.0 - 54.0 % LAB HEMETOLOGY METHOD 06/30/2024 12:15 PM EDT [facility] MCV 91.7 79.0 - 98.0 FL LAB HEMETOLOGY METHOD [facility]24 [facility] MCH 31.1 27.0 - 32.0 pcg LAB HEMETOLOGY METHOD 06/30/2024 12:15 PM EDT [facility] MCHC 33.9 32.0 - 37.0 g/dL LAB HEMETOLOGY METHOD 06/30/2024 12:15 PM EDT [facility] RDW 11.8 11.0 - 15.0 % LAB HEMETOLOGY METHOD 06/30/2024 12:15 PM EDT [facility] Platelets 271 130 - 400 K/mcL LAB HEMETOLOGY METHOD 06/30/2024 12:15 PM EDT [facility] MPV 9.3 7.0 - 11.0 FL LAB HEMETOLOGY METHOD 06/30/2024 12:15 PM EDT [facility] NRBC 0.0 <1.0 % LAB HEMETOLOGY METHOD 06/30/2024 12:15 PM EDT [facility] NRBC Absolute 0.00 <0.10 K/mcL LAB HEMETOLOGY METHOD 06/30/2024 12:15 PM [facility] Neutrophils Relative 68.1 % LAB HEMETOLOGY METHOD 06/30/2024 12:15 PM [facility] Lymphocytes Relative 15.4 % LAB HEMETOLOGY METHOD 06/30/2024 12:15 PM [facility] Monocytes Relative 9.7 % LAB HEMETOLOGY METHOD 06/30/2024 12:15 PM [facility] Eosinophils Relative 5.5 % LAB HEMETOLOGY METHOD 06/30/2024 12:15 PM [facility] Basophils Relative 0.8 % LAB HEMETOLOGY METHOD 06/30/2024 12:15 PM [facility] Immature Granulocytes Relative 0.5 % LAB HEMETOLOGY METHOD 06/30/2024 12:15 PM [facility] Neutrophils Absolute 6.78 1.50 - 7.00 K/mcL LAB HEMETOLOGY METHOD 06/30/2024 12:15 PM [facility] Lymphocytes Absolute 1.53 1.00 - 5.00 K/mcL LAB HEMETOLOGY METHOD 06/30/2024 12:15 PM [facility] Monocytes Absolute 0.97 0.20 - 1.00 K/mcL LAB HEMETOLOGY METHOD 06/30/2024 12:15 PM [facility] Eosinophils Absolute 0.55(H) 0.00 - 0.50 K/mcL LAB HEMETOLOGY METHOD 06/30/2024 12:15 PM [facility] Basophils Absolute 0.08 0.00 - 0.20 K/mcL LAB HEMETOLOGY METHOD 06/30/2024 12:15 PM [facility] Immature Granulocytes Absolute 0.05(H) 0.00 - 0.03 K/mcL LAB HEMETOLOGY METHOD 06/30/2024 12:15 PM [facility] Blood Venous blood specimen / Unknown Venipuncture / Unknown 06/30/2024 5:37 AM EDT 06/30/2024 10:16 AM EDT us Jamarcus Bruno MD LAB BLOOD ORDERABLES Final Resu lt Performing Organization Address [facility]/ZIP Co de Phone Number [facility] [address] [place] [address], [place] [phone] * Magnesium (06/30/2024 5:37 AM EDT) Pathologist [facility] Magnesium 2.2 1.9 - 2.6 mg/dL LAB CHEMISTRY METHOD 06/30/2024 1:35 PM EDT [facility] Blood Venous blood specimen / Unknown Venipuncture / Unknown 06/30/2024 5:37 AM EDT 06/30/2024 10:16 AM EDT us Jamarcus Bruno MD LAB BLOOD ORDERABLES Final Resu lt Performing Organization Address [facility]/ZIP Co de Phone Number [facility] [address] [place] [address], [place] [phone] * (ABNORMAL) Comprehensive metabolic panel (06/30/2024 5:37 AM EDT) Sodium 127(L) 133 - 145 mmol/L LAB CHEMISTRY METHOD 06/30/2024 2:11 PM EDT [facility] Potassium 4.0 3.5 - 5.5 mmol/L LAB CHEMISTRY METHOD 06/30/2024 2:11 PM EDT [facility] Chloride 93(L) 96 - 110 mmol/L LAB CHEMISTRY METHOD 06/30/2024 2:11 PM EDT [facility] CO2 20(L) 21 - 32 mmol/L LAB CHEMISTRY METHOD 06/30/2024 2:11 PM EDT [facility] Anion Gap 14(H) 3 - 11 LAB CHEMISTRY METHOD 06/30/2024 2:11 PM [facility] Glucose 102(H) 70 - 100 mg/dL LAB CHEMISTRY METHOD 06/30/2024 2:11 PM [facility] BUN 19 5 - 25 mg/dL LAB CHEMISTRY METHOD 06/30/2024 2:11 PM [facility] Creatinine 0.69(L) 0.70 - 1.30 mg/dL LAB CHEMISTRY METHOD 06/30/2024 2:11 PM [facility] eGFR 99 >=60 mL/min/1. 73m2 LAB CHEMISTRY METHOD 06/30/2024 2:11 PM [facility] Comment:Calculation based on the Chronic Kidney Disease Epidemiology Collaboration (CKD-EPI) equation refit without adjustment for race. BUN/Creatinine Ratio 27.5 LAB CHEMISTRY METHOD 06/30/2024 2:11 PM [facility] Calcium 8.7 8.5 - 10.5 mg/dL LAB CHEMISTRY METHOD 06/30/2024 2:11 PM [facility] AST (SGOT) 34 10 - 42 unit/L LAB CHEMISTRY METHOD 06/30/2024 2:11 PM [facility] ALT (SGPT) 86(H) 10 - 60 unit/L LAB CHEMISTRY METHOD 06/30/2024 2:11 PM [facility] Comment:Results verified by repeat testing Alkaline Phosphatase 63 42 - 121 unit/L LAB CHEMISTRY METHOD 06/30/2024 2:11 PM [facility] Total Protein 6.9 6.0 - 8.0 g/dL LAB CHEMISTRY METHOD 06/30/2024 2:11 PM [facility] Albumin 3.1(L) 3.2 - 5.0 g/dL LAB CHEMISTRY METHOD 06/30/2024 2:11 PM [facility] Total Bilirubin 0.6 0.0 - 1.4 mg/dL LAB CHEMISTRY METHOD 06/30/2024 2:11 PM EDT [facility] Blood Venous blood specimen / Unknown Venipuncture / Unknown 06/30/2024 5:37 AM EDT 06/30/2024 10:16 AM EDT us Jamarcus Bruno MD LAB BLOOD ORDERABLES Final Resu lt [facility] [address] [place] [address], documented in this encounter Visit Diagnoses Diagnosis Encounter for other general examination documented in this encounter Care Teams Mixer Crane Operator Relationship Specialty Start Date End Date Akira Castaneda DO [address] [place] [phone] PCP - General Internal Medicine 02/06/24 documented as of this encounter
--- OUTSIDE RECORDS SUMMARY | 2025-02-10 14:24 | XMS_ITS | Encounter Summary ---
Author Organization [facility] Address [address] [place] [address] Care Team Providers Care Manager Energy Name Role Phone Akira Castaneda DO Primary Care Provider [phone] Encounter Details Date Type Department Care Team (Late st Contact Info) Description 07/01/[address] [facility] - Main Lab [address] [place] [address] Jamarcus Bruno MD [address] [place] [address] Encounter for other general examination Social History [...] LAB CHEMISTRY METHOD 07/01/2024 11:22 AM EDT [facility] Potassium 4.3 3.5 - 5.5 mmol/L LAB CHEMISTRY METHOD 07/01/2024 11:22 AM EDT [facility] Chloride 96 96 - 110 mmol/L LAB CHEMISTRY METHOD 07/01/2024 11:22 AM [facility] CO2 23 21 - 32 mmol/L LAB CHEMISTRY METHOD 07/01/2024 11:22 AM [facility] Anion Gap 11 3 - 11 LAB CHEMISTRY METHOD 07/01/2024 11:22 AM [facility] Glucose 99 70 - 100 mg/dL LAB CHEMISTRY METHOD 07/01/2024 11:22 AM [facility] BUN 18 5 - 25 mg/dL LAB CHEMISTRY METHOD 07/01/2024 11:22 AM [facility] Creatinine 0.59(L) 0.70 - 1.30 mg/dL LAB CHEMISTRY METHOD 07/01/2024 11:22 AM [facility] eGFR 104 >=60 mL/min/1. 73m2 LAB CHEMISTRY METHOD 07/01/2024 11:22 AM [facility] Comment:Calculation based on the Chronic Kidney Disease Epidemiology Collaboration (CKD-EPI) equation refit without adjustment for race. BUN/Creatinine Ratio 30.5 LAB CHEMISTRY METHOD 07/01/2024 11:22 AM [facility] Calcium 8.3(L) 8.5 - 10.5 mg/dL LAB CHEMISTRY METHOD 07/01/2024 11:22 AM [facility] Blood Venous blood specimen / Unknown Venipuncture / Unknown 07/01/2024 6:45 AM EDT 07/01/2024 9:38 AM EDT us Jamarcus Bruno MD LAB BLOOD ORDERABLES Final Resu lt [facility] [address] [place] [address], documented in this encounter Visit Diagnoses Diagnosis Encounter for other general examination documented in this encounter Care Teams Manager Energy Relationship Specialty Start Date End Date Akira Castaneda DO [address] [place] [phone] PCP - General Internal Medicine 02/06/24 documented as of this encounter
== END 2025-02-10 14:03 | disposition home or self-care (01) ==
LOC: HO.HCS 13:17
PROVIDERS: PCP Internal Medicine; Visit Provider Nurse Practitioner Family
DX: I25.10 Atherosclerotic heart disease of native coronary artery without angina pectoris (principal); Z95.1 Presence of aortocoronary bypass graft; I65.23 Occlusion and stenosis of bilateral carotid arteries; Z98.890 Other specified postprocedural states; I10 Essential (primary) hypertension; E78.5 Hyperlipidemia, unspecified
CPT/HCPCS: 93010; 99214; G2211

== ENCOUNTER → 2025-02-10 13:17 | Outpatient (BNVA) | payer MEDICARE, SELFPAY | PROVIDERS: PCP Internal Medicine; Visit Provider Nurse Practitioner Family | DX: Z48.812 Encounter for surgical aftercare following surgery on the circulatory system (principal); I25.10 Atherosclerotic heart disease of native coronary artery without angina pectoris; Z95.1 Presence of aortocoronary bypass graft; I65.23 Occlusion and stenosis of bilateral carotid arteries; I10 Essential (primary) hypertension; E78.5 Hyperlipidemia, unspecified | CPT/HCPCS: 93005; 99212 ==